=== PATIENT | male | born 1940 | race Caucasian/White ===

== ENCOUNTER 2016-07-27 13:42 | Emergency (ER) | payer OTHER ==
[~2016-07-27] VITALS: Ht 175.3 cm; Wt 63.2 kg
[~2016-07-27 13:42] MED LIST: MGNO400 PO; OXYC-57 PO; POTTAB2 PO; PRAV20TA PO; VTMD PO; VTMD1000 PO
[2016-07-27 13:48] VITALS: TEMP 36.7; Ht 175.3 cm; Wt 63.2 kg
[2016-07-27] MEDS ORDERED: GLC/500 PO (14:34)
[2016-07-27] MEDS ORDERED: OXYMETAZOLINE HCL 0.05% NA SPR 15 ML BTL ONE ×2 (15:00→15:15)
--- NOTE | 2016-07-27 15:14 | EMERGENCY ROOM VISIT NOTE ---
History First contact with patient: 14:49 Chief Complaint: NOSE BLEED (MINOR) Stated Complaint: NOSE BLEEDS FOR A WEEK History of Present Illness The patient is a 76 year old male who presents to the Emergency Room with complaints of intermittent epistaxis. The patient states that he has gotten nosebleeds particularly at night for the last several weeks. He states it has been intermittent over the last year. The patient was unable to get the bleeding stopped today. The patient has a history of vascular dementia. He denies any headaches, chest pain, trouble breathing, pain, lightheadedness. He does not take any blood thinners. Review of Systems A 10 system review of systems was completed with positives and pertinent negatives listed in the HPI. Past Medical/Surgical History Medical Problems: (1) Diabetes (2) Hyperlipidemia (3) Vascular dementia Social History Smoking Status: Current Every Day Smoker Alcohol Use: none Drug Use: none Marital Status: single Housing Status: lives alone Occupation Status: retired Current/Historical Medications Scheduled Amoxicillin & Pot Clavulanate (Augmentin 875-125 mg), 1 TAB PO BID Metformin Hcl (Glucophage), 500 MG PO BID Pravastatin (Pravachol ), 40 MG PO DAILY Allergies Coded Allergies: No Known Allergies (Verified , 02/21/07) Physical Exam Vital Signs Date Time Temp Pulse Resp B/P Pulse Ox O2 Delivery O2 Flow Rate FiO2 07/27/16 16:36 85 18 190/110 96 Room Air 07/27/16 16:00 84 16 193/108 96 Room Air 07/27/16 13:48 36.7 82 18 158/82 97 Room Air Physical Exam VITALS: Vitals are noted on the nurse's note and reviewed by myself. Vital signs stable. The patient is afebrile. He is not tachycardic, tachypneic or hypotensive. GENERAL: This is a 76-year-old male, in no acute distress, nondiaphoretic, well- developed well-nourished. SKIN: The skin was without rashes, erythema, edema, or bruising. There is no tenting of the skin. Capillary reflex less than 2 seconds. HEAD: Normocephalic atraumatic. EARS: External auditory canals clear, tympanic membranes pearly rothman without erythema or effusion bilaterally. EYES: Pupils equal round and reactive to light and accommodation. Conjunctivae without injection, sclerae without icterus. Extraocular movements intact. NOSE: There is active bleeding from the left naris. No sinus tenderness. MOUTH: Mucous membranes moist. Tonsils are not enlarged. There is moderate active bleeding noted in the posterior pharynx. Uvula midline. Airway patent. Tongue does not deviate. NECK: Supple without nuchal rigidity. No lymphadenopathy. No thyromegaly. Cervical spine is nontender. No JVD. HEART: Regular rate and rhythm without murmurs gallops or rubs. LUNGS: Clear to auscultation bilaterally without wheezes, rales or rhonchi. No retractions or accessory muscle use. MUSCULOSKELETAL: No muscle atrophy, erythema, or edema noted. Full range of motion in all extremities. No tenderness to palpation. Normal gait. Strength 5/5 throughout. NEURO: Patient was alert and oriented to person place and time. No focal neurological deficits. Medical Decision & Procedures Laboratory Results 07/27/16 15:30 Red Blood Count 4.52, Mean Corpuscular Volume 92.9, Mean Corpuscular Hemoglobin 32.3, Mean Corpuscular Hemoglobin Concent 34.8, Mean Platelet Volume 10.4, Neutrophils (%) (Auto) 62.9, Lymphocytes (%) (Auto) 26.6, Monocytes (%) (Auto) 8.0, Eosinophils (%) (Auto) 2.1, Basophils (%) (Auto) 0.2, Neutrophils # (Auto) 5.29, Lymphocytes # (Auto) 2.24, Monocytes # (Auto) 0.67, Eosinophils # (Auto) 0.18, Basophils # (Auto) 0.02 07/27/16 15:30 Test 07/27/16 15:30 White Blood Count 8.42 K/uL (4.8-10.8) Red Blood Count 4.52 M/uL (4.7-6.1) Hemoglobin 14.6 g/dL (14.0-18.0) Hematocrit 42.0 % (42-52) Mean Corpuscular Volume 92.9 fL (80-100) Mean Corpuscular Hemoglobin 32.3 pg (25-34) Mean Corpuscular Hemoglobin Concent 34.8 g/dl (32-36) Platelet Count 275 K/uL (130-400) Mean Platelet Volume 10.4 fL (7.4-10.4) Neutrophils (%) (Auto) 62.9 % Lymphocytes (%) (Auto) 26.6 % Monocytes (%) (Auto) 8.0 % Eosinophils (%) (Auto) 2.1 % Basophils (%) (Auto) 0.2 % Neutrophils # (Auto) 5.29 K/uL (1.4-6.5) Lymphocytes # (Auto) 2.24 K/uL (1.2-3.4) Monocytes # (Auto) 0.67 K/uL (0.11-0.59) Eosinophils # (Auto) 0.18 K/uL (0-0.5) Basophils # (Auto) 0.02 K/uL (0-0.2) RDW Standard Deviation 43.4 fL (36.4-46.3) RDW Coefficient of Variation 12.7 % (11.5-14.5) Immature Granulocyte % (Auto) 0.2 % Immature Granulocyte # (Auto) 0.02 K/uL (0.00-0.02) Anion Gap 9.0 mmol/L (3-11) Est Creatinine Clear Calc Drug Dose 51.9 ml/min Estimated GFR () 75.7 Estimated GFR (Non- 65.3 BUN/Creatinine Ratio 15.7 (10-20) Calcium Level 9.4 mg/dl (8.5-10.1) Total Bilirubin 0.4 mg/dl (0.2-1) Aspartate Amino Transf (AST/SGOT) 8 U/L (15-37) Alanine Aminotransferase (ALT/SGPT) 17 U/L (12-78) Alkaline Phosphatase 105 U/L (45-117) Total Protein 7.8 gm/dl (6.4-8.2) Albumin 4.3 gm/dl (3.4-5.0) Globulin 3.5 gm/dl (2.5-4.0) Albumin/Globulin Ratio 1.2 (0.9-2) Procedure Initially, Afrin was instilled in the left naris and a nasal clamp applied. The patient continued to have active bleeding. At this time, a 5.5 cm rapid Rhino was placed in the left naris. I proximally 8 mL of air was instilled to inflate the balloon. I offered to remove some of the air but the patient stated that he was tolerating the pressure. ED Course The patient was seen and examined. Previous visits were reviewed. The patient does not have a fever or leukocytosis. He is not anemic. The patient presented with epistaxis. After rapid Rhino was placed, the epistaxis resolved. The patient will be placed on Augmentin for the next 3 days. He should return in 48 hours for recheck and packing removal. He should return sooner with recurrence of bleeding or generalized worsening symptoms. He should follow up with otolaryngology for further evaluation and management given the recurrent epistaxis. The patient was also seen and examined by who agrees with the assessment and treatment plan. Medical Decision Differential diagnosis includes epistaxis, anemia, coagulopathy, among others Impression Primary Impression: Epistaxis Departure Information Dispostion Home / Self-Care Condition GOOD Prescriptions Amoxicillin & Pot Clavulanate (Augmentin 875-125 mg) 1 Tab Tab 1 TAB PO BID for 3 Days, #6 TAB Prov: Kate Barrow PA-C 07/27/16 Referrals Gordon Dao M.D.(DENY) (PCP) Andrea Pitts M.D. Patient Instructions ED Nasal Packing Anterior Removable, ED Packing Nasal Anterior [place], My [facility] Additional Instructions Return in 48 hours to have the packing removed Return sooner with recurrence of bleeding or worsening symptoms Augmentin twice daily for 3 days Contact otolaryngology to schedule a follow-up appointment for further evaluation and management
[2016-07-27 15:41] LABS: BASO % 0.2 %; BASO ABS # 0.02 K/uL (0-0.2); COMPLETE YES; EOS % 2.1 %; IG% 0.2 %; LYMPH % 26.6 %; LYMPH ABS # 2.24 K/uL (1.2-3.4); MEAN CELL VOLUME 92.9 fL (80-100); MEAN CORPUSCULAR HEMOGLOBIN 32.3 pg (25-34); MEAN CORPUSCULAR HGB CONC 34.8 g/dl (32-36); MEAN PLATELET VOLUME 10.4 fL (7.4-10.4); NEUT % 62.9 %; PLATELET COUNT 275 K/uL (130-400); RED BLOOD COUNT 4.52 M/uL (4.7-6.1); WHITE BLOOD COUNT 8.42 K/uL (4.8-10.8)
[2016-07-27 16:01] LABS: BUN/CREATININE RATIO 15.7 (10-20); CALCIUM 9.4 mg/dl (8.5-10.1); CREATININE 1.1 mg/dl (0.60-1.40); POTASSIUM 4.6 mmol/L (3.5-5.1)
[2016-07-27 16:03] LABS: ALB/GLOB RATIO 1.2 (0.9-2)
[2016-07-27] MEDS ORDERED: AMOX875T PO (16:19)
[2016-07-27 16:36] VITALS: BP 190/110; PULSE 85; O2SAT 96
--- NOTE | 2016-07-28 20:03 | EMERGENCY ROOM VISIT NOTE ---
ED Visit Note First contact with patient: 14:49 I have personally evaluated this patient examined her and reviewed the pertinent labs and data. I have discussed the case with Reyna Barrow, the physician radiology assistant and agree with the plan. Please refer to the PA note. This patient has a left-sided nosebleed. They nose was packed with a rapid Rhino by Reyna. When I reassess the patient, he was resting comfortably he had no bleeding. There was a nasal pack in the left nares in the posterior oropharynx was clear. He is not on any blood thinners. We will discharge him home and he will return for packing removal in 2 days. The patient and daughter were happy with the plan and he was discharged
== END 2016-07-27 16:44 | disposition home or self-care (01) ==
LOC: C.EDB 13:44
DX: R04.0 Epistaxis (principal); F01.50 Vascular dementia, unspecified severity, without behavioral disturbance, psychotic disturbance, mood disturbance, and anxiety; E11.9 Type 2 diabetes mellitus without complications; E78.5 Hyperlipidemia, unspecified; F17.200 Nicotine dependence, unspecified, uncomplicated; Z79.899 Other long term (current) drug therapy; Z79.84 Long term (current) use of oral hypoglycemic drugs

== ENCOUNTER 2016-07-28 01:30 | Emergency (ER) | payer OTHER ==
[~2016-07-28] VITALS: Ht 175.3 cm; Wt 63.0 kg
[~2016-07-28 01:30] MED LIST changes: +AMOX875T PO; +GLC/500 PO; -MGNO400 PO; -OXYC-57 PO; -POTTAB2 PO; -VTMD PO; -VTMD1000 PO
[2016-07-28 01:33] VITALS: TEMP 36.5; Ht 175.3 cm; Wt 63.0 kg
--- NOTE | 2016-07-28 02:05 | EMERGENCY ROOM VISIT NOTE ---
History Report prepared by Bella: Courtney Hunt Under the Supervision of: Dr. Nabil Doherty M.D. First contact with patient: 01:40 Chief Complaint: NOSE BLEED (MINOR) Stated Complaint: NOSE BLEED History of Present Illness The patient is a 76 year old male who presents to the Emergency Room to have his nasal packing checked. The patient was seen in the ED one day ago for a nose bleed. A nasal packing was placed and the patient was prescribed Augmentin. Around three hours ago, the patient sneezed, causing the nasal packing to loosen in his nose. There was no active bleeding. The patient wanted to make sure that he did not dislodge the nasal packing. He is not on blood thinners. Source of History: patient Onset: 3 hours ago Position: nose Quality: other (nasal packing check) Timing: other (episode) Note: He denies active nose bleeding. Review of Systems See HPI for pertinent positives & negatives. A total of 6 systems reviewed and were otherwise negative. Past Medical & Surgical Medical Problems: (1) Diabetes (2) Hyperlipidemia (3) Vascular dementia Family History Diabetes mellitus Hypertension Social History Smoking Status: Current Every Day Smoker Alcohol Use: none Drug Use: none Marital Status: single Housing Status: lives alone Occupation Status: retired Current/Historical Medications Scheduled Amoxicillin & Pot Clavulanate (Augmentin 875-125 mg), 1 TAB PO BID Metformin Hcl (Glucophage), 500 MG PO BID Pravastatin (Pravachol ), 40 MG PO DAILY Allergies Coded Allergies: No Known Allergies (Verified , 02/21/07) Physical Exam Vital Signs Date Time Temp Pulse Resp B/P Pulse Ox O2 Delivery O2 Flow Rate FiO2 07/28/16 02:14 87 18 156/92 96 07/28/16 01:33 36.5 98 16 161/91 97 Room Air Physical Exam GENERAL: Patient is well appearing and in no acute distress. HEENT: No acute trauma, normocephalic atraumatic, mucous membranes moist, no nasal congestion, no scleral icterus. His left nares rapid rhino , which is sticking out senior living, no active bleeding. NECK: No stridor, no adenopathy, no meningismus, trachea is midline. EXTREMITIES: Normal motion all extremities, no cyanosis, no edema. NEUROLOGIC: Alert and oriented, no acute motor or sensory deficits, no focal weakness, cranial nerves grossly intact. SKIN: No rash, no jaundice, no diaphoresis. Medical Decision & Procedures Procedure Anterior Nasal Packing Indication: epistaxis Verbal consent obtained. Risks and benefits were explained with the usual customary discussion. A time out was taken. Clots were removed with suction. The left naris was prepped. A 4.5-cm rapid rhino was placed in a standard fashion. The patient tolerated this well. Hemostasis was achieved. No complications. ED Course 0145: The patient was evaluated in room A3. The patient as first evaluated by the medical student. A complete history and physical exam was performed. 0204: Reevaluated the patient. Discussed results and discharge instructions: He verbalized understanding and agreement. The patient is ready for discharge. Medical Decision Differential: Anterior/Posterior Epistaxis, Coagulopathy, Trauma, Fracture, Septal Hematoma, amongst other pathologies entertained. 76 yr old male arrives for replacement of left rapid rhino after it expelled half way out. Removed and excoriated nasal septum noted, but no active bleeding. With only having been in 12 hours will replace and continue current plan for another 36 hours. Patient comfortable, balloon soft and no further bleeding. Discussed care and monitoring. Impression Primary Impression: Left-sided nosebleed Scribe Attestation The scribe's documentation has been prepared under my direction and personally reviewed by me in its entirety. I confirm that the note above accurately reflects all work, treatment, procedures, and medical decision making performed by me. Departure Information Dispostion Home / Self-Care Referrals Gordon Dao M.D.(HUGH) (PCP) Patient Instructions ED [place], My [facility] Additional Instructions Return in 1-2 days for packing removal. If packing falls out you do not need to return unless bleeding is uncontrolled.
[2016-07-28 02:14] VITALS: BP 156/92; PULSE 87; O2SAT 96
== END 2016-07-28 02:16 | disposition home or self-care (01) ==
LOC: C.EDB 01:31 → C.EDA 02:16
DX: R04.0 Epistaxis (principal); E11.9 Type 2 diabetes mellitus without complications; E78.5 Hyperlipidemia, unspecified; F01.50 Vascular dementia, unspecified severity, without behavioral disturbance, psychotic disturbance, mood disturbance, and anxiety; Z79.84 Long term (current) use of oral hypoglycemic drugs; Z79.899 Other long term (current) drug therapy; Z82.49 Family history of ischemic heart disease and other diseases of the circulatory system; Z83.3 Family history of diabetes mellitus; F17.200 Nicotine dependence, unspecified, uncomplicated

== ENCOUNTER 2020-11-03 18:52 | Inpatient (IN) ==
[2020-11-03] MEDS ORDERED: Heparin IV Adult Wt-Based Standard WITH Bolus Protocol IV STA (20:05)
--- NOTE | 2020-11-03 20:05 | Emergency Department Note ---
Impression & Plan Left ventricular apical thrombus, Anemia, High serum chloride ED Provider Note NAME: MAIKEL COVINGTON AGE: 80 SEX: M : 1940 ARRIVES VIA: Walk-In INFORMANT: Patient ED PROVIDER(S): Tavares Simon DO CHIEF COMPLAINT: Abnormal echo HPI: Patient is a 80-year-old male who presents to the ER as he was referred in following having an echo. He was not feeling well for about 2 weeks and followed up with PCP and was found to have a new murmur. Following this he had an echo scheduled which was performed today. The echo showed an EF of 45% with a 0.9 cm apical thrombus as well as the anterior septum and inferior septum are hypokinetic at the mid level. Patient denies any chest pain or change in vision. No shortness of breath nausea vomiting or diarrhea. No dysuria urgency or frequency. He denies any blood in his urine, stool, coughing up blood, vo miting blood recent trauma or surgeries. No previous brain bleeds. ROS: See above HPI for pertinent positives & negatives. A total of 10 systems reviewed and were otherwise negative. PAST MEDICAL HISTORY:See Below PAST SURGICAL HISTORY:See Below FAMILY HISTORY:See Below SOCIAL HISTORY:See Below HOME MEDICATIONS:See Below ALLERGIES:See Below VITALS:See Below PHYSICAL EXAMINATION: GENERAL: Sitting up in bed, alert, chronically ill-appearing, disheveled EYE EXAM: normal conjunctiva. OROPHARYNX: no exudate, no erythema, lips, buccal mucosa, and tongue normal and mucous membranes are moist NECK: supple, no nuchal rigidity, no adenopathy, non-tender LUNGS: Clear to auscultation. Normal chest wall mechanics HEART: no murmurs, S1 normal and S2 normal ABDOMEN: abdomen soft, non-tender, normo-active bowel sounds, no masses, no rebound or guarding. BACK: Back is symmetrical on inspection and there is no deformity, no midline tenderness, no CVA tenderness. SKIN: no rashes and no bruising UPPER EXTREMITIES: upper extremities are grossly normal. LOWER EXTREMITIES: No pitting edema. NEURO EXAM: Normal sensorium, cranial nerves II-XII grossly intact, normal speech, no gross weakness of arms, no gross weakness of legs. MEDICAL DECISION MAKING: Patient is a 80-year-old male who was found to have a left ventricle apical thrombus who was referred in for further evaluation. IV was established blood work obtained. Labs show no significant leukocytosis or anemia. INR unremarkable. BMP with slightly elevated chloride. LFTs bilirubin and troponin was negative. Lipase unremarkable. Covid was negative. Ultrasound reviewed on paper from [facility]. Patient has no bleeding risk factors. Placed on heparin drip and bolus. Discussed with hospitalist admitted for further work-up. Triage Nursing notes reviewed. Limited review of prior medical records performed Vital Signs: reviewed and remarkable for HTN Differential diagnosis: Differential diagnoses includes but is not limited to acute coronary syndrome, myocardial infarction, pericarditis, pulmonary embolus, aortic dissection, pne umonia, pneumothorax, musculoskeletal, shingles, esophageal. ER treatment provided: See below Diagnostics interpreted by me: ECG: Sinus rhythm rate 71 Normal axis No PVCs Poor baseline T wave flattening in the septal leads QTC 375 Cardiac Monitoring: An order was placed for continuous cardiac monitoring. The monitor shows a rate of 71 with sinus rhythm. Laboratory studies: As stated above and show below. Imaging studies: Portable AP upright 1 view the chest shows no focal infiltrate or pneumothorax Consultation(s): Discussed with hospitalist for further evaluation Procedures: none Critical Care: I have personally spent 35 minutes of critical care time in the direct management of this patient. This includes bedside care, interpretation of diagnostic studies, and testing, discussion with consultants, patient, and family members, and other required patient management activities. This 35 minutes is in excess of all separately billable procedures. Past Med/Surg History Social History Smoking Status: Former smoker Tobacco Type: Cigarettes Feels Safe at Home: Yes Allergies Allergies Allergy/AdvReac Type Severity Reaction Status Date / Time aspirin AdvReac Unknown Verified 11/03/20 20:39 mirtazapine [From Remeron] AdvReac Unknown Verified 11/03/20 20:39 Home Meds Home Medications Medication Instructions Recorded Confirmed benzonatate 100 mg PO TID PRN 11/03/20 11/03/20 ipratropium-albuterol [Combivent 1 puff INHALATION QID 11/03/20 11/03/20 Respimat] montelukast 10 mg PO DAILY 11/03/20 11/03/20 olanzapine 5 mg PO DAILY 11/03/20 11/03/20 Results & Data (ED) Vital Signs Vital Signs - 24 hr 11/03/20 18:56 11/03/20 20:12 11/03/20 20:41 Temperature 36.8 C Temperature Source Oral Pulse Rate 75 Pulse Rate [Right Finger] 73 Pulse Rate from SpO2 Sensor Pulse Rhythm [Right Finger] Regular Respiratory Rate 18 16 Blood Pressure 199/85 H Blood Pressure [Right Arm] 188/99 H Blood Pressure Mean 123 Blood Pressure Mean [Right Arm] 128 Pulse Oximetry 99 98 100 Oxygen Delivery Method Room Air Room Air Room Air Sepsis Recent Fever Within 48 Hours No Sepsis New/Unexplained Change in Mental Status No Sepsis Action Taken by Nursing No Action Required 11/03/20 22:24 11/03/20 22:48 11/03/20 23:00 Temperature Temperature Source Pulse Rate 72 67 Pulse Rate [Right Finger] 78 Pulse Rate from SpO2 Sensor 67 68 Pulse Rhythm [Right Finger] Respiratory Rate 16 15 24 Blood Pressure 200/116 H 179/76 H Blood Pressure [Right Arm] 172/95 H Blood Pressure Mean 144 110 Blood Pressure Mean [Right Arm] 120 Pulse Oximetry 98 99 99 Oxygen Delivery Method Room Air Room Air Sepsis Recent Fever Within 48 Hours Sepsis New/Unexplained Change in Mental Status Sepsis Action Taken by Nursing Laboratory Data Result diagrams: 11/03/20 20:09 11/03/20 20:09 Lab Results 11/03/20 11/03/20 11/03/20 Range/Units 20:09 20:09 20:09 WBC 6.84 (4.8-10.8) K/uL RBC 4.40 L (4.7-6.1) M/uL Hgb 13.5 L (14.0-18.0) g/dL Hct 39.5 L (42-52) % MCV 89.8 (80-100) fL MCH 30.7 (25-34) pg MCHC 34.2 (32-36) g/dL RDW Std Deviation 42.3 (36.4-46.3) fL RDW Coeff of Filippo 12.9 (11.5-14.5) % Plt Count 263 (130-400) K/uL MPV 10.1 (7.4-10.4) fL Immature Gran % (Auto) 0.1 % Neut % (Auto) 54.7 % Lymph % (Auto) 31.1 % Hampton % (Auto) 10.7 % Eos % (Auto) 3.1 % Baso % (Auto) 0.3 % Neut # (Auto) 3.74 (1.4-6.5) K/uL Lymph # (Auto) 2.13 (1.2-3.4) K/uL [place] # (Auto) 0.73 H (0.11-0.59) K/uL Eos # (Auto) 0.21 (0-0.5) K/uL Baso # (Auto) 0.02 (0-0.2) K/uL Immature Gran # (Auto) 0.01 (0.00-0.02) K/uL PT 10.2 (9.0-12.0) Seconds INR 1.0 (0.9-1.1) APTT 26.2 (21.0-31.0) Seconds PTT Ratio 1.0 Sodium 138 (136-145) mmol/L Potassium 4.0 (3.5-5.1) mmol/L Chloride 109 H (98-107) mmol/L Carbon Dioxide 23 (21-32) mmol/L Anion Gap 6.0 (3-11) BUN 21 H (7-18) mg/dl Creatinine 1.24 (0.6-1.4) mg/dl Est Cr Clr Drug Dosing 41.5 ml/min Est GFR ( Amer) 63.7 ml/min Est GFR (Non-Af Amer) 54.9 ml/min BUN/Creatinine Ratio 17.0 (10-20) Glucose 102 H (70-99) mg/dl Calcium 9.1 (8.5-10.1) mg/dl Total Bilirubin 0.3 (0.2-1) mg/dl AST 10 L (15-37) U/L ALT 17 (12-78) U/L Alkaline Phosphatase 100 (45-117) U/L Troponin I < 0.015 (0-0.045) ng/ml Total Protein 7.3 (6.4-8.2) gm/dl Albumin 3.8 (3.4-5.0) gm/dl Globulin 3.5 (2.5-4.0) gm/dl Albumin/Globulin Ratio 1.1 (0.9-2) Lipase 86 (73-393) U/L COVID-19 Eval Order SARS-CoV-2 (PCR) (Negative) 11/03/20 11/03/20 Range/Units 20:21 20:21 WBC (4.8-10.8) K/uL RBC (4.7-6.1) M/uL Hgb (14.0-18.0) g/dL Hct (42-52) % MCV (80-100) fL MCH (25-34) pg MCHC (32-36) g/dL RDW Std Deviation (36.4-46.3) fL RDW Coeff of Filippo (11.5-14.5) % Plt Count (130-400) K/uL MPV (7.4-10.4) fL Immature Gran % (Auto) % Neut % (Auto) % Lymph % (Auto) % [place] % (Auto) % Eos % (Auto) % Baso % (Auto) % Neut # (Auto) (1.4-6.5) K/uL Lymph # (Auto) (1.2-3.4) K/uL [place] # (Auto) (0.11-0.59) K/uL Eos # (Auto) (0-0.5) K/uL Baso # (Auto) (0-0.2) K/uL Immature Gran # (Auto) (0.00-0.02) K/uL PT (9.0-12.0) Seconds INR (0.9-1.1) APTT (21.0-31.0) Seconds PTT Ratio Sodium (136-145) mmol/L Potassium (3.5-5.1) mmol/L Chloride (98-107) mmol/L Carbon Dioxide (21-32) mmol/L Anion Gap (3-11) BUN (7-18) mg/dl Creatinine (0.6-1.4) mg/dl Est Cr Clr Drug Dosing ml/min Est GFR ( Amer) ml/min Est GFR (Non-Af Amer) ml/min BUN/Creatinine Ratio (10-20) Glucose (70-99) mg/dl Calcium (8.5-10.1) mg/dl Total Bilirubin (0.2-1) mg/dl AST (15-37) U/L ALT (12-78) U/L Alkaline Phosphatase (45-117) U/L Troponin I (0-0.045) ng/ml Total Protein (6.4-8.2) gm/dl Albumin (3.4-5.0) gm/dl Globulin (2.5-4.0) gm/dl Albumin/Globulin Ratio (0.9-2) Lipase (73-393) U/L COVID-19 Eval Order Covid19 at [facility] SARS-CoV-2 (PCR) NEGATIVE (Negative) Administered Medications Heparin Sodium/Dextrose (Heparin Sodium/Dextrose) 25,000 units in 500 mls @ 22 mls/hr IV .[id number] ROLY; Protocol Stop: 12/03/20 20:20 Last Admin: 11/03/20 21:06 Dose: 1,100 units/hr, 22 mls/hr Documented by: [id number] Cosigned by: [id number] Metoprolol Tartrate (Metoprolol Tartrate 25 Mg Tab) 25 mg PO BID [facility] Stop: 12/03/20 23:14 Last Admin: 11/03/20 23:09 Dose: 25 mg Documented by: [id number] Discontinued Medications Heparin Sodium (Porcine) (Heparin Sod (Porcine) 1000 Unit/Ml) 1 units IV NOW ONE Stop: 11/03/20 20:22 Last Admin: 11/03/20 21:07 Dose: 5,000 units Documented by: [id number] Cosigned by: [id number] Heparin Sodium/Dextrose (Heparin Iv Adult Wt-Based Standard With Bolus Protocol) 1 ea IV NOW STA; Protocol Stop: 11/03/20 20:06 Last Admin: 11/03/20 21:07 Dose: Not Given Documented by: [id number] Labetalol HCl (Labetalol Hcl Iv 5 Mg/Ml 20ml) 10 mg IV NOW STA Stop: 11/03/20 22:57 Last Admin: 11/03/20 23:10 Dose: Not Given Documented by: [id number] Imaging Data Radiologist's Impression: Chest X-Ray 11/03/20 20:03 XR chest 1V portable CLINICAL HISTORY: Atypical chest pain COMPARISON STUDY: 04/08/2014 FINDINGS: The heart is mildly enlarged. The chest has an emphysematous configuration. There is mild interstitial thickening. There is no lobar consolidation. There are old right-sided rib fractures.[No pleural effusions are visualized IMPRESSION: 1. Mild cardiomegaly 2. Suspected pulmonary emphysema 3. Minor nonspecific interstitial thickening 4. No evidence of focal pulmonary consolidation ACT 112: Negative or not required by law. Electronically signed by: Atul Charles M.D. 11/03/2020 8:58 PM Discharge Plan Visit Data Chief Complaint: Illness Stated Complaint: SENT BY DR/ BLOOD CLOT IN TOP OF HEART ED Provider: Tavares Simon Discharge Problem: Left ventricular apical thrombus, Anemia, High serum chloride Forms Stand Alone Forms: [facility] Prescriptions Prescriptions: No Action olanzapine 5 mg tablet 5 mg PO DAILY RF: 0 benzonatate 100 mg capsule 100 mg PO TID PRN (Reason: Cough) RF: 0 montelukast 10 mg tablet 10 mg PO DAILY RF: 0 Combivent Respimat 20-100 mcg/actuation mist 1 puff INHALATION QID RF: 0 Discharge Problem: Anemia Qualifiers: Anemia type: unspecified type Qualified Code(s): D64.9 - Anemia, unspecified
[2020-11-03 20:21] LABS: Basophils # (auto) 0.02 K/uL (0-0.2); Basophils % (auto) 0.3 %; Eosinophils # (auto) 0.21 K/uL (0-0.5); Eosinophils % (auto) 3.1 %; Hematocrit (blood only) 39.5 % (42-52); Hemoglobin 13.5 g/dL (14.0-18.0); Immature Granulocytes # (auto) 0.01 K/uL (0.00-0.02); Immature Granulocytes % (auto) 0.1 %; Lymphocytes # (auto) 2.13 K/uL (1.2-3.4); Lymphocytes % (auto) 31.1 %; Mean Corpuscular Hemoglobin 30.7 pg (25-34); Mean Corpuscular Hgb Conc 34.2 g/dL (32-36); Mean Corpuscular Volume 89.8 fL (80-100); Mean Platelet Volume 10.1 fL (7.4-10.4); Monocytes # (auto) 0.73 K/uL (0.11-0.59); Monocytes % (auto) 10.7 %; Neutrophils # (auto) 3.74 K/uL (1.4-6.5); Neutrophils % (auto) 54.7 %; Platelet Count 263 K/uL (130-400); RDW Coefficient of Variation 12.9 % (11.5-14.5); RDW Standard Deviation 42.3 fL (36.4-46.3); White Blood Count 6.84 K/uL (4.8-10.8)
[2020-11-03] MEDS ORDERED: HEPARIN SOD (PORCINE) 1000 UNIT/ML IV ONE (20:21)
[2020-11-03 20:30] LABS: Partial Thromboplastin Time 26.2 Seconds (21.0-31.0); Prothrombin Time 10.2 Seconds (9.0-12.0)
[2020-11-03 20:44] LABS: Alanine Aminotransferase 17 U/L (12-78); Albumin Level 3.8 gm/dl (3.4-5.0); Aspartate Aminotransferase 10 U/L (15-37); Blood Urea Nitrogen 21 mg/dl (7-18); Calcium 9.1 mg/dl (8.5-10.1); Carbon Dioxide 23 mmol/L (21-32); Chloride 109 mmol/L (98-107); Creatinine Clr Calc Pharmacy 41.5 ml/min; Est GFR (African American) 63.7 ml/min; Est GFR (Non-African American) 54.9 ml/min; Glucose 102 mg/dl (70-99); Lipase 86 U/L (73-393); Sodium 138 mmol/L (136-145)
[2020-11-03 20:49] LABS: Albumin Globulin Ratio 1.1 (0.9-2); Alkaline Phosphatase 100 U/L (45-117); Bilirubin,Total 0.3 mg/dl (0.2-1); Globulin 3.5 gm/dl (2.5-4.0); Total Protein 7.3 gm/dl (6.4-8.2); Troponin I < 0.015 ng/ml (0-0.045)
--- NOTE | 2020-11-03 20:59 | XRay Report ---
XR chest 1V portable CLINICAL HISTORY: Atypical chest pain COMPARISON STUDY: 04/08/2014 FINDINGS: The heart is mildly enlarged. The chest has an emphysematous configuration. There is mild i nterstitial thickening. There is no lobar consolidation. There are old right-sided rib fractures.[No pleural effusions are visualized IMPRESSION: 1. Mild cardiomegaly 2. Suspected pulmonary emphysema 3. Minor nonspecific interstitial thickening 4. No evidence of focal pulmonary consolidation ACT 112: Negative or not required by law. Electronically signed by: Atul Charles M.D. 11/03/2020 8:58 PM
[2020-11-03] MEDS: HEPARIN SODIUM/DEXTROSE 25,000 UNITS/500 ML BAG IV SCH (21:06)
[2020-11-03] MEDS ORDERED: LABETALOL HCL IV 5 MG/ML 20ML IV STA (22:56)
[2020-11-03] MEDS: METOPROLOL TARTRATE 25 MG TAB PO SCH (23:09)
[2020-11-04] MEDS ORDERED: POLYETHYLENE (MIRALAX) 17 GM PACK PO PRN (00:47)
[2020-11-04] MEDS ORDERED: BENZONATATE 100 MG CAPSULE PO PRN (00:47)
[2020-11-04] MEDS ORDERED: NITROGLYCERIN SL 0.4 MG/TAB TAB SL PRN (00:47)
[2020-11-04] MEDS ORDERED: ACETAMINOPHEN 325 MG TAB PO PRN (00:47)
--- NOTE | 2020-11-04 01:37 | History and Physical Report ---
DATE OF ADMISSION: 11/03/2020 CHIEF COMPLAINT: Ongoing dizziness and outpatient echo showed mural thrombus. HISTORY OF PRESENT ILLNESS: This is a 80-year-old male with past medical history significant for COPD, history of pulmonary nodule, history of dementia, history of protein-calorie malnutrition, chronic kidney disease stage IIIA, macular degeneration, progressive vascular leukoencephalopathy, history of visual spatial deficit, aspirin contraindicated because of epistaxis. As per daughter, he had two cauterizations of the nose in the ER in the past. Quit smoking 2 years ago. Lives with his daughter. Ambulates without any support. Appetite is okay. Comes here because outpatient echo showed mural thrombus and EF of 45%. The patient was having dizziness on and off for last 2 weeks. He went to see the family doctor because of question of murmur, Echo was done, the results showing EF of 45% and anterior septum and inferior septum are hypokinetic in the mid level. There is a moderate sized 0.9 cm apical thrombus and the patient was advised to come to the hospital. Denies any chest pain or shortness of breath. Has some nausea, no cough, no fever, no chills, no headache. He is blind in the left eye. No earache, no runny nose, no sore throat, no dysphagia, no abdominal pain. Normal bowel and bladder movements. Denies any blood in the stools or black stools. Denies any hematuria, no burning micturition, no swelling in the legs. Currently resting comfortably and hemodynamically stable. The patient's daughter is in the room. ALLERGIES: ASPIRIN, REMERON. PAST MEDICAL HISTORY: As mentioned above. PAST SURGICAL HISTORY: Open right incarcerated femoral hernia repair with mesh, injection of the eye drug, reduction of bowel obstruction, appendectomy, carotid endarterectomy with patch. MEDICATIONS: Currently on benzoate 100 mg p.o. t.i.d. p.r.n., Combivent 1 puff inhalation b.i.d., montelukast 10 mg p.o. daily, olanzapine 5 mg p.o. daily. FAMILY HISTORY: Significant for brother had throat cancer and hypertension; mother had throat cancer; mother had diabetes, hypertension. SOCIAL HISTORY: Lives with his daughter. Former smoker, quit in 2019. Smoked average 1 pack a day for 60 years. Stopped alcohol in the 1990s. No drug use. REVIEW OF SYSTEMS: As per HPI. Rest of review of systems negative. PHYSICAL EXAMINATION: GENERAL: The patient is of moderate build, not in acute distress. VITAL SIGNS: Temperature 36.8, pulse 67, respiratory rate 24, blood pressure 179/76, oxygen 99% on room air. HEENT: No pallor, no icterus. Oral mucosa moist. NECK: No JVD, no neck masses. CARDIOVASCULAR: S1, S2 heard, regular rate and rhythm, no murmur, no gallop. RESPIRATORY SYSTEM: Normal AP diameter. No accessory muscle use. No wheezing, no crackles. ABDOMEN: Soft, bowel sounds present, nontender. No distention. CENTRAL NERVOUS SYSTEM: Cranial nerves II-XII grossly intact, nonfocal. EXTREMITIES: No edema, no erythema. LABORATORY DATA: WBC 6.8, hemoglobin 13.5, hematocrit 39.5, platelets 263. PT 10.2, INR 1, APTT 26.2. Sodium 138, potassium 4, chloride 109, bicarbonate 23, BUN 21, creatinine 1.2, serum glucose 162, calcium 9.1, total bilirubin 0.3, AST 10, ALT 17, alkaline phosphatase 100. Troponin I less than 0.015. Lipase 86. SARS-CoV-2 PCR negative. IMAGING DATA: Chest x-ray, mild cardiomegaly with suspected pulmonary emphysema, no evidence of focal pulmonary consolidation. Minor nonspecific interstitial thickening. EKG: Normal sinus rhythm at the rate of 71, no acute ST changes seen. ASSESSMENT AND PLAN: This is a 80-year-old male who presents with apical mural thrombus. 1. Apical mural thrombus: Started on IV heparin. Monitor in the tele floor. Further management as per cardiology. 2. Congestive heart failure, systolic: EF fraction of 45%, new. Ischemic cardiomyopathy?The patient is asymptomatic. Follow lipid profile.Workup and optimization of medications as per cardiology. 3. Hypertension: Blood pressure is elevated. Starting on Lopressor 25 b.i.d. 4. Dementia: Monitor for delirium. On olanzapine. 5. Chronic kidney disease stage III: Will follow the labs. 6. History of chronic obstructive pulmonary disease: Continue home Combivent. 7. Deep vein thrombosis prophylaxis: On IV heparin. DISPOSITION: Closely monitor in tele floor. Level 1 full code. Expect to discharge home and follow with family doctor. PT and OT prior to discharge. Social service to help with discharge planning. HOUSTOND
[2020-11-04 03:54] LABS: Partial Thromboplastin Ratio 3.1
[2020-11-04] MEDS: HEPARIN SODIUM/DEXTROSE 25,000 UNITS/500 ML BAG IV SCH ×2 (05:41→20:14)
[2020-11-04 05:47] LABS: Basophils # (auto) 0.02 K/uL (0-0.2); Basophils % (auto) 0.2 %; Eosinophils # (auto) 0.13 K/uL (0-0.5); Eosinophils % (auto) 1.5 %; Hematocrit (blood only) 39.4 % (42-52); Hemoglobin 13.4 g/dL (14.0-18.0); Immature Granulocytes # (auto) 0.02 K/uL (0.00-0.02); Immature Granulocytes % (auto) 0.2 %; Lymphocytes # (auto) 1.08 K/uL (1.2-3.4); Lymphocytes % (auto) 12.1 %; Mean Corpuscular Hemoglobin 30.7 pg (25-34); Mean Corpuscular Volume 90.4 fL (80-100); Mean Platelet Volume 10.2 fL (7.4-10.4); Monocytes # (auto) 0.62 K/uL (0.11-0.59); Monocytes % (auto) 6.9 %; Neutrophils # (auto) 7.06 K/uL (1.4-6.5); Neutrophils % (auto) 79.1 %; Platelet Count 293 K/uL (130-400); RDW Coefficient of Variation 12.8 % (11.5-14.5); RDW Standard Deviation 42.8 fL (36.4-46.3); Red Blood Count 4.36 M/uL (4.7-6.1); White Blood Count 8.93 K/uL (4.8-10.8)
[2020-11-04 06:16] LABS: BUN Creatinine Ratio 17.8 (10-20); Calcium 8.8 mg/dl (8.5-10.1); Creatinine Clr Calc Pharmacy 44.3 ml/min; Est GFR (Non-African American) 59.6 ml/min
[2020-11-04 06:24] LABS: Magnesium 2.7 mg/dl (1.8-2.4); Troponin I 0.017 ng/ml (0-0.045)
[2020-11-04] MEDS: OLANZapine 5 MG TABLET PO SCH (08:53)
[2020-11-04] MEDS: METOPROLOL TARTRATE 25 MG TAB PO SCH ×2 (08:53→20:14)
[2020-11-04] MEDS: MONTELUKAST SODIUM 10 MG TABLET PO SCH (08:53)
[2020-11-04] MEDS ORDERED: IPRATROPIUM BROMIDE/ALBUTEROL respimat INH INH SCH (09:00)
--- NOTE | 2020-11-04 09:32 | Cardiology Consultation ---
Date of Consultation November 04, 2020 Assessment & Plan (1) Left ventricular apical thrombus: (2) Systolic dysfunction: (3) Dizziness: (4) Systolic murmur: New onset systolic murmur, no valvular abnormalities noted on out patient echo. EF mildly reduced at 45-49% with hypokinesis of anterior septum. No chest pain or shortness of breath. Newly diagnosed LV thrombus, currently on IV heparin. Patient is a high fall risk given his underlying dementia. Lives with daughter Mary. Only complaint ongoing dizziness. VS stable. Repeat echo inpatient to assess murmur and status of thrombus. Plans to transition from IV Heparin to Coumadin Will conservatively manage new systolic dysfunction. Ischemic cause is not ruled out. Trop slightly bumped at <0.015, 0.017. Patient is currently euvolemic on exam. Already on evidence based beta nori, Can consider addition of ACEI as long as kidney function remains stable. Should patient become hypervolemic will consider addition of loop diuretic. Supervising Physician Co-Signing Physician Notes I have seen and evaluated the patient. I reviewed the medical record and discussed the case with . I agree with the plan as outlined. I would recommend a repeat echocardiogram for our evaluation. History of Present Illness Reason for Consultation: Ongoing Dizziness, Mural Thrombus on outpatient echo Requesting Physician: [facility] Hospitalist group Attending Physician: Luis Skelton MD History of Present Illness 80 year old male unknown to [facility]. Presenting to ED for complaints of ongoing dizziness. He went to see the family doctor because of question of murmur, Echo was done, the results showing EF of 45% and anterior septum and inferior septum are hypokinetic in the mid level. There is a moderate sized 0.9 cm apical thrombus and the patient was advised to come to the hospital. (previous echo 2016 LVEF 60%) Patient was started on IV heparin, Patient was Hypertensive and was started on Lopressor 25 Twice daily. Kidney function stable. Hgb 13.5. EKG showed NSR, possible septal infarct. Patient is a very poor historian given his underlying dementia (lives with daughter, Mary), however, patient appears alert and oriented today in the room. Only complaint is ongoing dizziness with activity. Denies chest pain, shortness of breath, palpitations. No orthopnea, PND, or increased lower extremity edema. No fever, chills, cough, hematochezia, melena, or hemoptysis. Nursing state he is steady on his feet with ambulation, but he is impulsive at times. ECHO 11/03/2020 at [facility] The examination is adequate to evaluate the referral indication. The left ventricular cavity size is normal. The LV wall thickness is mildly increased (concentric). The anterior septum and inferior septum are hypokinetic at the mid level. The apex is discretely akinetic with mild thinning and expansion. There is a moderate-sized 0.9 cm apical thrombus The qualitative LV ejection fraction is 45-49% (mildly reduced). The left ventricular diastolic function is mildly abnormal (grade I). This study has what is deemed to be a "significant abnormality" consistent with ACT 112. See additional documentation regarding notification of patient and ordering provider. No significant valvular abnormalities. PMH: HTN significant COPD Pulm Nodule Dementia Malnutrition CKD stage 3 H/o Visual spatial defect H/o Epitaxis, no ASA Former tobacco use Allergies Allergy/AdvReac Type Severity Reaction Status Date / Time aspirin AdvReac Unknown Verified 11/03/20 20:39 mirtazapine [From Remeron] AdvReac Unknown Verified 11/03/20 20:39 Home Medications Medication Instructions Recorded Confirmed Type benzonatate 100 mg PO TID PRN 11/03/20 11/03/20 History ipratropium-albuterol [Combivent 1 puff INHALATION QID 11/03/20 11/03/20 History Respimat] montelukast 10 mg PO DAILY 11/03/20 11/03/20 History olanzapine 5 mg PO DAILY 11/03/20 11/03/20 History Patient History Social History Smoking Status: Former smoker Tobacco Type: Cigarettes Hx Alcohol Use: No Hx Substance Use: No Preferred Language: Occitan Communication Ability: Effective 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 A+Ox3. HEENT: Normocephalic. Atraumatic. PERRL. EOMI. Conjunctiva and sclera clear. NECK: No carotid bruits. No JVD. Carotid upstrokes are brisk. Heart: RRR. S1 and S2 noted, +3/6 systolic murmur. No rubs, gallops. PMI non displaced. Lungs: Clear to auscultation. No wheezes, rhonchi, rales. Abdomen: Normal bowel sounds. Soft. Nontender. No masses or organomegaly. No abdominal bruits. Extremities: No edema. No clubbing or cyanosis. Pulses: radial=2/4, posterior tibial=2/4, dorsalis pedis = 2/4. NEURO: No focal deficits. PSYCH: Normal. Results & Data ([facility]) Vital Signs (Past 12 Hours) Vital Signs Temp Pulse Pulse Resp BP BP Pulse Ox 11/04/20 07:58 36.7 C 71 21 136/72 95 11/04/20 04:45 36.7 C 73 16 150/73 H 95 11/04/20 00:35 36.7 C 72 18 151/93 H 97 11/03/20 23:30 64 14 186/92 H 98 11/03/20 23:00 67 24 179/76 H 99 11/03/20 22:48 72 15 200/116 H 99 11/03/20 22:24 78 16 172/95 H 98
--- NOTE | 2020-11-04 09:52 | Hospitalist Progress Note ---
Date of Service November 04, 2020 Assessment & Plan (1) Left ventricular apical thrombus: (2) Systolic murmur: (3) Systolic dysfunction: (4) Dizziness: This is a 80-year-old male who presents with apical mural thrombus. 1. Apical mural thrombus: Started on IV heparin. Monitor in the tele floor. Further management as per cardiology. Plan to repeat echocardiogram Patient started on warfarin 2. Congestive heart failure, systolic: EF fraction of 45%, new. Ischemic cardiomyopathy?The patient is asymptomatic. Follow lipid profile.Workup and optimization of medications as per cardiology. 3. Hypertension: Blood pressure is elevated. Started on Lopressor 25 b.i.d. 4. Dementia: Monitor for delirium. On olanzapine. 5. Chronic kidney disease stage III: Will follow the labs. 6. History of chronic obstructive pulmonary disease: Continue home Combivent. 7. Deep vein thrombosis prophylaxis: On IV heparin. DISPOSITION: Closely monitor in tele floor.Expect to discharge home and follow with family doctor. PT and OT prior to discharge. Social service to help with discharge planning. Admission and Anticipated Discharge Date Admission Date: November 03, 2020 Subjective Patient seen in follow-up of mural thrombus, dizziness Currently patient is lying in bed in no acute distress, he is able to answer some questions appropriately however due to dementia not able to answer all my questions Denies any chest pain shortness of breath, says dizziness is occasional No abdominal pain, nausea or vomiting He is currently on IV heparin, plan for echocardiogram per cardiology Review of Systems Review of Systems: All systems reviewed & are unremarkable except as noted in HPI & below Constitutional: no fever and no chills Respiratory: no cough and no dyspnea Cardiovascular: no chest pain and no palpitations Gastrointestinal: no abdominal pain, no nausea and no vomiting Physical Exam Physical Exam: GENERAL: The patient is of moderate build, not in acute distress. HEENT: No pallor, no icterus. Oral mucosa moist. NECK: No JVD, no neck masses. CARDIOVASCULAR: S1, S2 heard, regular rate and rhythm, +murmur, no gallop. RESPIRATORY: Normal AP diameter. No accessory muscle use. No wheezing, no crackles. ABDOMEN: Soft, bowel sounds present, nontender. No distention. NEURO: Awake but only able to answer some questions appropriately due to dementia, moves extremities EXTREMITIES: No edema, no erythema. Results & Data Results & Data ([facility]) Vital Signs (Past 12 Hours) Vital Signs Temp Pulse Pulse Resp BP BP Pulse Ox 11/04/20 07:58 36.7 C 71 21 136/72 95 11/04/20 04:45 36.7 C 73 16 150/73 H 95 11/04/20 00:35 36.7 C 72 18 151/93 H 97 11/03/20 23:30 64 14 186/92 H 98 11/03/20 23:00 67 24 179/76 H 99 11/03/20 22:48 72 15 200/116 H 99 11/03/20 22:24 78 16 172/95 H 98 Laboratory Results 11/04/20 11/04/20 11/04/20 Range/Units 05:27 05:27 03:06 WBC 8.93 (4.8-10.8) K/uL RBC 4.36 L (4.7-6.1) M/uL Hgb 13.4 L (14.0-18.0) g/dL Hct 39.4 L (42-52) % MCV 90.4 (80-100) fL MCH 30.7 (25-34) pg MCHC 34.0 (32-36) g/dL RDW Std Deviation 42.8 (36.4-46.3) fL RDW Coeff of Filippo 12.8 (11.5-14.5) % Plt Count 293 (130-400) K/uL MPV 10.2 (7.4-10.4) fL Immature Gran % (Auto) 0.2 % Neut % (Auto) 79.1 % Lymph % (Auto) 12.1 % Divide % (Auto) 6.9 % Eos % (Auto) 1.5 % Baso % (Auto) 0.2 % Neut # (Auto) 7.06 H (1.4-6.5) K/uL Lymph # (Auto) 1.08 L (1.2-3.4) K/uL Divide # (Auto) 0.62 H (0.11-0.59) K/uL Eos # (Auto) 0.13 (0-0.5) K/uL Baso # (Auto) 0.02 (0-0.2) K/uL Immature Gran # (Auto) 0.02 (0.00-0.02) K/uL PT (9.0-12.0) Seconds INR (0.9-1.1) APTT 82.0 H* (21.0-31.0) Seconds PTT Ratio 3.1 Sodium 140 (136-145) mmol/L Potassium 4.0 (3.5-5.1) mmol/L Chloride 112 H (98-107) mmol/L Carbon Dioxide 22 (21-32) mmol/L Anion Gap 6.0 (3-11) BUN 21 H (7-18) mg/dl Creatinine 1.16 (0.6-1.4) mg/dl Est Cr Clr Drug Dosing 44.3 ml/min Est GFR ( Amer) 69.0 ml/min Est GFR (Non-Af Amer) 59.6 ml/min BUN/Creatinine Ratio 17.8 (10-20) Glucose 115 H (70-99) mg/dl Calcium 8.8 (8.5-10.1) mg/dl Magnesium 2.7 H (1.8-2.4) mg/dl Total Bilirubin (0.2-1) mg/dl AST (15-37) U/L ALT (12-78) U/L Alkaline Phosphatase (45-117) U/L Troponin I 0.017 (0-0.045) ng/ml Total Protein (6.4-8.2) gm/dl Albumin (3.4-5.0) gm/dl Globulin (2.5-4.0) gm/dl Albumin/Globulin Ratio (0.9-2) Triglycerides 105 (0-150) mg/dl Cholesterol 202 H (0-200) mg/dl LDL Cholesterol, Calc 137 mg/dl VLDL Cholesterol, Calc 21 mg/dl HDL Cholesterol 44 mg/dl Cholesterol/HDL Ratio 5 Lipase (73-393) U/L COVID-19 Eval Order SARS-CoV-2 (PCR) (Negative) 11/03/20 11/03/20 11/03/20 Range/Units 20:21 20:21 20:09 WBC (4.8-10.8) K/uL RBC (4.7-6.1) M/uL Hgb (14.0-18.0) g/dL Hct (42-52) % MCV (80-100) fL MCH (25-34) pg MCHC (32-36) g/dL RDW Std Deviation (36.4-46.3) fL RDW Coeff of Filippo (11.5-14.5) % Plt Count (130-400) K/uL MPV (7.4-10.4) fL Immature Gran % (Auto) % Neut % (Auto) % Lymph % (Auto) % Divide % (Auto) % Eos % (Auto) % Baso % (Auto) % Neut # (Auto) (1.4-6.5) K/uL Lymph # (Auto) (1.2-3.4) K/uL Divide # (Auto) (0.11-0.59) K/uL Eos # (Auto) (0-0.5) K/uL Baso # (Auto) (0-0.2) K/uL Immature Gran # (Auto) (0.00-0.02) K/uL PT (9.0-12.0) Seconds INR (0.9-1.1) APTT (21.0-31.0) Seconds PTT Ratio Sodium 138 (136-145) mmol/L Potassium 4.0 (3.5-5.1) mmol/L Chloride 109 H (98-107) mmol/L Carbon Dioxide 23 (21-32) mmol/L Anion Gap 6.0 (3-11) BUN 21 H (7-18) mg/dl Creatinine 1.24 (0.6-1.4) mg/dl Est Cr Clr Drug Dosing 41.5 ml/min Est GFR ( Amer) 63.7 ml/min Est GFR (Non-Af Amer) 54.9 ml/min BUN/Creatinine Ratio 17.0 (10-20) Glucose 102 H (70-99) mg/dl Calcium 9.1 (8.5-10.1) mg/dl Magnesium (1.8-2.4) mg/dl Total Bilirubin 0.3 (0.2-1) mg/dl AST 10 L (15-37) U/L ALT 17 (12-78) U/L Alkaline Phosphatase 100 (45-117) U/L Troponin I < 0.015 (0-0.045) ng/ml Total Protein 7.3 (6.4-8.2) gm/dl Albumin 3.8 (3.4-5.0) gm/dl Globulin 3.5 (2.5-4.0) gm/dl Albumin/Globulin Ratio 1.1 (0.9-2) Triglycerides (0-150) mg/dl Cholesterol (0-200) mg/dl LDL Cholesterol, Calc mg/dl VLDL Cholesterol, Calc mg/dl HDL Cholesterol mg/dl Cholesterol/HDL Ratio Lipase 86 (73-393) U/L COVID-19 Eval Order Covid19 at [facility] SARS-CoV-2 (PCR) NEGATIVE (Negative) 11/03/20 11/03/20 Range/Units 20:09 20:09 WBC 6.84 (4.8-10.8) K/uL RBC 4.40 L (4.7-6.1) M/uL Hgb 13.5 L (14.0-18.0) g/dL Hct 39.5 L (42-52) % MCV 89.8 (80-100) fL MCH 30.7 (25-34) pg MCHC 34.2 (32-36) g/dL RDW Std Deviation 42.3 (36.4-46.3) fL RDW Coeff of Filippo 12.9 (11.5-14.5) % Plt Count 263 (130-400) K/uL MPV 10.1 (7.4-10.4) fL Immature Gran % (Auto) 0.1 % Neut % (Auto) 54.7 % Lymph % (Auto) 31.1 % Divide % (Auto) 10.7 % Eos % (Auto) 3.1 % Baso % (Auto) 0.3 % Neut # (Auto) 3.74 (1.4-6.5) K/uL Lymph # (Auto) 2.13 (1.2-3.4) K/uL Divide # (Auto) 0.73 H (0.11-0.59) K/uL Eos # (Auto) 0.21 (0-0.5) K/uL Baso # (Auto) 0.02 (0-0.2) K/uL Immature Gran # (Auto) 0.01 (0.00-0.02) K/uL PT 10.2 (9.0-12.0) Seconds INR 1.0 (0.9-1.1) APTT 26.2 (21.0-31.0) Seconds PTT Ratio 1.0 Sodium (136-145) mmol/L Potassium (3.5-5.1) mmol/L Chloride (98-107) mmol/L Carbon Dioxide (21-32) mmol/L Anion Gap (3-11) BUN (7-18) mg/dl Creatinine (0.6-1.4) mg/dl Est Cr Clr Drug Dosing ml/min Est GFR ( Amer) ml/min Est GFR (Non-Af Amer) ml/min BUN/Creatinine Ratio (10-20) Glucose (70-99) mg/dl Calcium (8.5-10.1) mg/dl Magnesium (1.8-2.4) mg/dl Total Bilirubin (0.2-1) mg/dl AST (15-37) U/L ALT (12-78) U/L Alkaline Phosphatase (45-117) U/L Troponin I (0-0.045) ng/ml Total Protein (6.4-8.2) gm/dl Albumin (3.4-5.0) gm/dl Globulin (2.5-4.0) gm/dl Albumin/Globulin Ratio (0.9-2) Triglycerides (0-150) mg/dl Cholesterol (0-200) mg/dl LDL Cholesterol, Calc mg/dl VLDL Cholesterol, Calc mg/dl HDL Cholesterol mg/dl Cholesterol/HDL Ratio Lipase (73-393) U/L COVID-19 Eval Order SARS-CoV-2 (PCR) (Negative) Medications Administered Current Inpatient Medications Acetaminophen (Acetaminophen 325 Mg Tab) 650 mg PO Q4H PRN PRN Reason: Pain or Fever Stop: 12/04/20 00:46 Albuterol (Albuterol Hfa 8 Gm Inhaler (Combivent Respimat P&T Subs)) 1 puffs INH QIDR ROLY Stop: 12/04/20 06:59 Benzonatate (Benzonatate 100 Mg Capsule) 100 mg PO TID PRN PRN Reason: Cough Stop: 12/04/20 00:46 Heparin Sodium/Dextrose (Heparin Sodium/Dextrose) 25,000 units in 500 mls @ 21 mls/hr IV .[id number] [facility]; Protocol Stop: 12/03/20 20:20 Last Admin: 11/04/20 05:41 Dose: Not Given Documented by: Ipratropium [place] (Ipratropium Hfa Inhaler (Combivent Respimat P&T Subs)) 1 puffs INH QIDR ROLY Stop: 12/04/20 06:59 Metoprolol Tartrate (Metoprolol Tartrate 25 Mg Tab) 25 mg PO BID [facility] Stop: 12/03/20 23:14 Last Admin: 11/04/20 08:53 Dose: 25 mg Documented by: Montelukast Sodium (Montelukast Sodium 10 Mg Tablet) 10 mg PO DAILY ROLY Stop: 12/04/20 08:59 Last Admin: 11/04/20 08:53 Dose: 10 mg Documented by: Nitroglycerin (Nitroglycerin Sl 0.4 Mg/Tab Tab) 0.4 mg SL UD PRN PRN Reason: Chest Pain Stop: 12/04/20 00:46 Olanzapine (Olanzapine 5 Mg Tablet) 5 mg PO DAILY [facility] Stop: 12/04/20 08:59 Last Admin: 11/04/20 08:53 Dose: 5 mg Documented by: Polyethylene Glycol (Polyethylene (Miralax) 17 Gm Pack) 17 gm PO DAILY PRN PRN Reason: Constipation Stop: 12/04/20 00:46
[2020-11-04 10:35] LABS: Partial Thromboplastin Ratio 2.6
[2020-11-04 10:43] LABS: Partial Thromboplastin Time 68.9 Seconds (21.0-31.0)
[2020-11-04] MEDS: Ipratropium HFA Inhaler (Combivent Respimat P&T Subs) INH SCH ×4 (10:45→19:07)
[2020-11-04] MEDS: Albuterol HFA 8 GM Inhaler (Combivent Respimat P&T Subs) INH SCH ×4 (10:45→19:06)
[2020-11-04] MEDS: WARFARIN SOD 10 MG TAB PO SCH (16:08)
[2020-11-04 17:54] LABS: Partial Thromboplastin Ratio 2.4
[2020-11-04 18:18] LABS: Partial Thromboplastin Time 62.2 Seconds (21.0-31.0)
[2020-11-05 06:09] LABS: Hematocrit (blood only) 41.1 % (42-52); Hemoglobin 13.8 g/dL (14.0-18.0); Mean Corpuscular Hemoglobin 30.7 pg (25-34); Mean Corpuscular Hgb Conc 33.6 g/dL (32-36); Mean Corpuscular Volume 91.3 fL (80-100); Mean Platelet Volume 10.4 fL (7.4-10.4); Platelet Count 305 K/uL (130-400); RDW Coefficient of Variation 13.3 % (11.5-14.5); RDW Standard Deviation 44.5 fL (36.4-46.3); White Blood Count 7.59 K/uL (4.8-10.8)
[2020-11-05 06:27] LABS: BUN Creatinine Ratio 17.3 (10-20); Calcium 9.1 mg/dl (8.5-10.1); Creatinine Clr Calc Pharmacy 35.4 ml/min; Est GFR (African American) 53.6 ml/min; Est GFR (Non-African American) 46.3 ml/min; Magnesium 2.1 mg/dl (1.8-2.4); Phosphorus 2.6 mg/dl (2.5-4.9); Potassium 4.3 mmol/L (3.5-5.1)
[2020-11-05 06:40] LABS: INR 1.1 (0.9-1.1); Partial Thromboplastin Ratio 2.6; Prothrombin Time 11.4 Seconds (9.0-12.0)
[2020-11-05 06:45] LABS: Partial Thromboplastin Time 67.8 Seconds (21.0-31.0)
[2020-11-05] MEDS: Albuterol HFA 8 GM Inhaler (Combivent Respimat P&T Subs) INH SCH (07:36)
[2020-11-05] MEDS: Ipratropium HFA Inhaler (Combivent Respimat P&T Subs) INH SCH (07:36)
--- NOTE | 2020-11-05 07:44 | Electrocardiogram Report ---
Test Reason : Blood Pressure : / mmHG Vent. Rate : 071 BPM Atrial Rate : 071 BPM P-R Int : 176 ms QRS Dur : 068 ms QT Int : 346 ms P-R-T Axes : 063 -02 060 degrees QTc Int : 375 ms Poor data quality, interpretation may be adversely affected Normal sinus rhythm Possible Septal infarct , age undetermined Abnormal ECG When compared with ECG of 07-APR-2014 22:59, QRS duration has decreased Septal infarct is now Present Nonspecific T wave abnormality no longer evident in Inferior leads QT has shortened Confirmed by Javier Borges ([id number]) on 11/05/2020 7:43:37 AM Referred By: REFERRED SELF Confirmed By:Javier Borges
--- NOTE | 2020-11-05 07:51 | Hospitalist Progress Note ---
Date of Service November 05, 2020 Assessment & Plan (1) Left ventricular apical thrombus: (2) Systolic murmur: (3) Systolic dysfunction: (4) Dizziness: This is a 80-year-old male who presents with apical mural thrombus. 1. Apical mural thrombus: Started on IV heparin. Monitor in the tele floor. Further management as per cardiology. Repeat echocardiogram -LV is normal in size. There is severe septal hypokinesis. There is anterior wall akinesis. There is apical akinesis. EF 45 to 50%. There is a moderate size apical thrombus. The right ventricular systolic function is normal. LA size is normal. RA size is normal. Mild to mo derate aortic regurg. Mild tricuspid regurg. Patient started on warfarin Monitor INR 2. Congestive heart failure, systolic: EF fraction of 45%, new. Initial troponin negative, then 0.017 Ischemic causes not ruled out. Ischemic cardiomyopathy? The patient is euvolemic. Started on metoprolol Consider IGLESIA inhibitor as long as kidney function remains stable and BP permits. Should patient become hypervolemic consider addition of loop diuretic. AM lipid profile - TC 202, LDL 137, TG 105 Workup and optimization of medications as per cardiology. 3. Hypertension: Blood pressure is elevated. Started on Lopressor 25 b.i.d. 4. Dementia: Monitor for delirium. On olanzapine. 5. Chronic kidney disease stage III: Will follow the labs. 6. History of chronic obstructive pulmonary disease: Continue home Combivent. 7. Deep vein thrombosis prophylaxis: On IV heparin. DISPOSITION: Closely monitor in tele floor. Expect to discharge home and follow with family doctor. PT and OT prior to discharge. Social service to help with discharge planning. Admission and Anticipated Discharge Date Admission Date: November 03, 2020 Subjective Patient seen in follow-up of mural thrombus, dizziness Currently patient is lying in bed in no acute distress, he is able to answer some questions appropriately however due to dementia not able to answer all my questions Denies any chest pain shortness of breath, says dizziness is occasional No abdominal pain, nausea or vomiting He is currently on IV heparin Patient's daughter updated over the phone Review of Systems Review of Systems: All systems reviewed & are unremarkable except as noted in HPI & below Constitutional: no fever and no chills Respiratory: no cough and no dyspnea Cardiovascular: no chest pain and no palpitations Gastrointestinal: no abdominal pain, no nausea and no vomiting Physical Exam Physical Exam: GENERAL: The patient is of moderate build, not in acute distress. HEENT: No pallor, no icterus. Oral mucosa moist. NECK: No JVD, no neck masses. CARDIOVASCULAR: S1, S2 heard, regular rate and rhythm, +murmur, no gallop. RESPIRATORY: Normal AP diameter. No accessory muscle use. No wheezing, no crackles. ABDOMEN: Soft, bowel sounds present, nontender. No distention. NEURO: Awake but only able to answer some questions appropriately due to dementia, moves extremities EXTREMITIES: No edema, no erythema. Results & Data Results & Data ([facility]) Vital Signs (Past 12 Hours) Vital Signs Temp Pulse Pulse Resp BP Pulse Ox 11/05/20 07:36 103 H 18 98 11/05/20 03:49 102/51 L 11/05/20 03:10 36.6 C 60 20 70/45 L 96 11/05/20 01:40 66 11/04/20 23:17 36.7 C 75 20 108/69 96 Laboratory Results 11/05/20 11/05/20 11/05/20 Range/Units 05:20 05:20 05:20 WBC 7.59 (4.8-10.8) K/uL RBC 4.50 L (4.7-6.1) M/uL Hgb 13.8 L (14.0-18.0) g/dL Hct 41.1 L (42-52) % MCV 91.3 (80-100) fL MCH 30.7 (25-34) pg MCHC 33.6 (32-36) g/dL RDW Std Deviation 44.5 (36.4-46.3) fL RDW Coeff of Filippo 13.3 (11.5-14.5) % Plt Count 305 (130-400) K/uL MPV 10.4 (7.4-10.4) fL PT (9.0-12.0) Seconds INR (0.9-1.1) APTT Cancelled (21.0-31.0) Seconds PTT Ratio Cancelled Sodium 139 (136-145) mmol/L Potassium 4.3 (3.5-5.1) mmol/L Chloride 109 H (98-107) mmol/L Carbon Dioxide 24 (21-32) mmol/L Anion Gap 6.0 (3-11) BUN 25 H (7-18) mg/dl Creatinine 1.43 H (0.6-1.4) mg/dl Est Cr Clr Drug Dosing 35.4 ml/min Est GFR ( Amer) 53.6 ml/min Est GFR (Non-Af Amer) 46.3 ml/min BUN/Creatinine Ratio 17.3 (10-20) Glucose 104 H (70-99) mg/dl Calcium 9.1 (8.5-10.1) mg/dl Phosphorus 2.6 (2.5-4.9) mg/dl Magnesium 2.1 (1.8-2.4) mg/dl 11/05/20 11/04/20 11/04/20 Range/Units 05:20 17:10 09:55 WBC (4.8-10.8) K/uL RBC (4.7-6.1) M/uL Hgb (14.0-18.0) g/dL Hct (42-52) % MCV (80-100) fL MCH (25-34) pg MCHC (32-36) g/dL RDW Std Deviation (36.4-46.3) fL RDW Coeff of Filippo (11.5-14.5) % Plt Count (130-400) K/uL MPV (7.4-10.4) fL PT 11.4 (9.0-12.0) Seconds INR 1.1 (0.9-1.1) APTT 67.8 H* 62.2 H* 68.9 H* (21.0-31.0) Seconds PTT Ratio 2.6 2.4 2.6 Sodium (136-145) mmol/L Potassium (3.5-5.1) mmol/L Chloride (98-107) mmol/L Carbon Dioxide (21-32) mmol/L Anion Gap (3-11) BUN (7-18) mg/dl Creatinine (0.6-1.4) mg/dl Est Cr Clr Drug Dosing ml/min Est GFR ( Amer) ml/min Est GFR (Non-Af Amer) ml/min BUN/Creatinine Ratio (10-20) Glucose (70-99) mg/dl Calcium (8.5-10.1) mg/dl Phosphorus (2.5-4.9) mg/dl Magnesium (1.8-2.4) mg/dl Medications Administered Current Inpatient Medications Acetaminophen (Acetaminophen 325 Mg Tab) 650 mg PO Q4H PRN PRN Reason: Pain or Fever Stop: 12/04/20 00:46 Albuterol (Albuterol Hfa 8 Gm Inhaler (Combivent Respimat P&T Subs)) 1 puffs INH QIDR [facility] Stop: 12/04/20 06:59 Last Admin: 11/05/20 07:36 Dose: 1 puffs Documented by: Benzonatate (Benzonatate 100 Mg Capsule) 100 mg PO TID PRN PRN Reason: Cough Stop: 12/04/20 00:46 Heparin Sodium/Dextrose (Heparin Sodium/Dextrose) 25,000 units in 500 mls @ 20 mls/hr IV .Q24H [facility]; Protocol Stop: 12/03/20 20:20 Last Titration: 11/05/20 07:11 Dose: 950 units/hr, 19 mls/hr Documented by: Ipratropium [place] (Ipratropium Hfa Inhaler (Combivent Respimat P&T Subs)) 1 puffs INH QIDR [facility] Stop: 12/04/20 06:59 Last Admin: 11/05/20 07:36 Dose: 1 puffs Documented by: Metoprolol Tartrate (Metoprolol Tartrate 25 Mg Tab) 25 mg PO BID [facility] Stop: 12/03/20 23:14 Last Admin: 11/04/20 20:14 Dose: 25 mg Documented by: Montelukast Sodium (Montelukast Sodium 10 Mg Tablet) 10 mg PO DAILY [facility] Stop: 12/04/20 08:59 Last Admin: 11/04/20 08:53 Dose: 10 mg Documented by: Nitroglycerin (Nitroglycerin Sl 0.4 Mg/Tab Tab) 0.4 mg SL UD PRN PRN Reason: Chest Pain Stop: 12/04/20 00:46 Olanzapine (Olanzapine 5 Mg Tablet) 5 mg PO DAILY [facility] Stop: 12/04/20 08:59 Last Admin: 11/04/20 08:53 Dose: 5 mg Documented by: Polyethylene Glycol (Polyethylene (Miralax) 17 Gm Pack) 17 gm PO DAILY PRN PRN Reason: Constipation Stop: 12/04/20 00:46 Warfarin Sodium (Warfarin Sod 10 Mg Tab) 10 mg PO DAILY@1600 [facility] Stop: 12/04/20 15:59 Last Admin: 11/04/20 16:08 Dose: 10 mg Documented by:
[2020-11-05] MEDS: MONTELUKAST SODIUM 10 MG TABLET PO SCH (08:15)
[2020-11-05] MEDS: OLANZapine 5 MG TABLET PO SCH (08:16)
[2020-11-05] MEDS: METOPROLOL TARTRATE 25 MG TAB PO SCH ×2 (09:12→20:29)
[2020-11-05] MEDS: ATORVASTATIN 20 MG TAB PO SCH (09:13)
[2020-11-05] MEDS ORDERED: ALBUTEROL HFA 8 GM INHALER INH PRN (09:17)
[2020-11-05] MEDS ORDERED: IPRATROPIUM BROMIDE HFA INHALER INH PRN (09:17)
[2020-11-05 13:06] LABS: Partial Thromboplastin Ratio 2.8
[2020-11-05 13:18] LABS: Partial Thromboplastin Time 74.4 Seconds (21.0-31.0)
[2020-11-05] MEDS: HEPARIN SODIUM/DEXTROSE 25,000 UNITS/500 ML BAG IV SCH (15:15)
--- NOTE | 2020-11-05 15:44 | Cardiology Progress Note ---
Date of Service November 05, 2020 Assessment & Plan (1) Left ventricular apical thrombus: Patient is a 80-year-old male with history of vascular dementia underlying pulmonary issues with symptoms of pulmonary exacerbations earlier this year. Recent outpatient evaluation demonstrated abnormal EKG and possible new murmur and patient was referred for echocardiogram with study demonstrating anteroapical infarct with apical thrombus. Findings were not suggestive of acute process. Plan is already begun with IV heparin with conversion to full anticoagulation with warfarin. We will treat underlying coronary artery disease/infarct. Continue beta-nori add statin and aspirin with possible IGLESIA inhibitor if blood pressure will allow in the future (2) Systolic dysfunction: (3) Dizziness: (4) Vascular dementia: Admission and Anticipated Discharge Date Admission Date: November 03, 2020 Subjective Patient was seen and examined, chart, medications, telemetry reviewed. Patient denies any acute complaints or issues. No arrhythmias on telemetry. Currently receiving IV heparin with plans for conversion to full anticoagulation with warfarin. He denies any chest pains dizziness or lightheadedness. No tachypalpitations. Appetite is good. Review of Systems Review of Systems: All systems reviewed & are unremarkable except as noted in HPI & below Physical Exam Constitutional: WD/WN, vitals as above no acute distress Eyes: PERRL, conjunctivae normal, anicteric sclerae ENMT: external ear and nose normal, oropharynx normal Neck: trachea midline, no thyromegaly Respiratory: normal respiratory effort, lungs clear to auscultation Cardiovascular: Rate/Rhythm: regular rate and regular rhythm Heart Sounds: normal S1 and normal S2; no gallop and no murmur Palpation: normal PMI Vessels: normal carotid upstroke and radial pulses present; no JVD and no carotid bruit Extremities: no edema Gastrointestinal (Abdomen): normal bowel sounds, soft, nontender, no hepatosplenomegaly Musculoskeletal: no cyanosis or clubbing, extremities motor strength 5/5 Skin: no rashes, warm and dry Neurologic: PERRL, EOMI, accommodation nl, no face palsy, no dysarthria Psychiatric: A+Ox3, euthymic affect Results & Data ([facility]) Vital Signs (Past 12 Hours) Vital Signs Temp Pulse Resp BP Pulse Ox 11/05/20 12:09 36.8 C 84 20 112/72 98 11/05/20 07:49 37.0 C 76 22 109/64 100 11/05/20 07:36 103 H 18 98 11/05/20 03:49 102/51 L Laboratory Results Laboratory Results - last 24 hr 11/04/20 11/05/20 11/05/20 17:10 05:20 05:20 WBC 7.59 RBC 4.50 L Hgb 13.8 L Hct 41.1 L MCV 91.3 MCH 30.7 MCHC 33.6 RDW Std Deviation 44.5 RDW Coeff of Filippo 13.3 Plt Count 305 MPV 10.4 PT 11.4 INR 1.1 APTT 62.2 H* 67.8 H* PTT Ratio 2.4 2.6 Sodium Potassium Chloride Carbon Dioxide Anion Gap BUN Creatinine Est Cr Clr Drug Dosing Est GFR ( Amer) Est GFR (Non-Af Amer) BUN/Creatinine Ratio Glucose Calcium Phosphorus Magnesium 11/05/20 11/05/20 11/05/20 05:20 05:20 12:37 WBC RBC Hgb Hct MCV MCH MCHC RDW Std Deviation RDW Coeff of Filippo Plt Count MPV PT INR APTT Cancelled 74.4 H* PTT Ratio Cancelled 2.8 Sodium 139 Potassium 4.3 Chloride 109 H Carbon Dioxide 24 Anion Gap 6.0 BUN 25 H Creatinine 1.43 H Est Cr Clr Drug Dosing 35.4 Est GFR ( Amer) 53.6 Est GFR (Non-Af Amer) 46.3 BUN/Creatinine Ratio 17.3 Glucose 104 H Calcium 9.1 Phosphorus 2.6 Magnesium 2.1 Diagnostic Findings Current Medications Acetaminophen (Acetaminophen 325 Mg Tab) 650 mg PO Q4H PRN PRN Reason: Pain or Fever Stop: 12/04/20 00:46 Albuterol (Albuterol Hfa 8 Gm Inhaler) 1 puffs INH QIDR PRN PRN Reason: Shortness Of Breath Or Wheezing Stop: 12/04/20 06:59 Atorvastatin Calcium (Atorvastatin 20 Mg Tab) 20 mg PO QAM [facility] Stop: 12/05/20 08:59 Last Admin: 11/05/20 09:13 Dose: 20 mg Documented by: Benzonatate (Benzonatate 100 Mg Capsule) 100 mg PO TID PRN PRN Reason: Cough Stop: 12/04/20 00:46 Heparin Sodium/Dextrose (Heparin Sodium/Dextrose) 25,000 units in 500 mls @ 19 mls/hr IV .Q24H [facility]; Protocol Stop: 12/03/20 20:20 Last Admin: 11/05/20 15:15 Dose: Not Given Documented by: Ipratropium [place] (Ipratropium [place] Hfa Inhaler) 1 puffs INH QIDR PRN PRN Reason: Shortness Of Breath Or Wheezing Stop: 12/04/20 06:59 Metoprolol Tartrate (Metoprolol Tartrate 25 Mg Tab) 25 mg PO BID [facility] Stop: 12/03/20 23:14 Last Admin: 11/05/20 09:12 Dose: Not Given Documented by: Montelukast Sodium (Montelukast Sodium 10 Mg Tablet) 10 mg PO DAILY [facility] Stop: 12/04/20 08:59 Last Admin: 11/05/20 08:15 Dose: 10 mg Documented by: Nitroglycerin (Nitroglycerin Sl 0.4 Mg/Tab Tab) 0.4 mg SL UD PRN PRN Reason: Chest Pain Stop: 12/04/20 00:46 Olanzapine (Olanzapine 5 Mg Tablet) 5 mg PO DAILY [facility] Stop: 12/04/20 08:59 Last Admin: 11/05/20 08:16 Dose: 5 mg Documented by: Polyethylene Glycol (Polyethylene (Miralax) 17 Gm Pack) 17 gm PO DAILY PRN PRN Reason: Constipation Stop: 12/04/20 00:46 Warfarin Sodium (Warfarin Sod 10 Mg Tab) 10 mg PO DAILY@1600 [facility] Stop: 12/04/20 15:59 Last Admin: 11/04/20 16:08 Dose: 10 mg Documented by:
[2020-11-05] MEDS: WARFARIN SOD 10 MG TAB PO SCH (17:06)
[2020-11-05 20:13] LABS: Partial Thromboplastin Ratio 2.3
[2020-11-05 21:02] LABS: Partial Thromboplastin Time 59.3 Seconds (21.0-31.0)
[2020-11-06] MEDS: HEPARIN SODIUM/DEXTROSE 25,000 UNITS/500 ML BAG IV SCH (00:49)
[2020-11-06 05:51] LABS: Hematocrit (blood only) 38.2 % (42-52); Mean Corpuscular Hemoglobin 30.4 pg (25-34); Mean Corpuscular Volume 89.5 fL (80-100); Mean Platelet Volume 10.1 fL (7.4-10.4); Platelet Count 264 K/uL (130-400); RDW Coefficient of Variation 13.3 % (11.5-14.5); RDW Standard Deviation 43.1 fL (36.4-46.3); Red Blood Count 4.27 M/uL (4.7-6.1); White Blood Count 6.08 K/uL (4.8-10.8)
[2020-11-06 06:13] LABS: BUN Creatinine Ratio 23.3 (10-20); Calcium 9.4 mg/dl (8.5-10.1); Creatinine Clr Calc Pharmacy 40.5 ml/min; Est GFR (African American) 63.7 ml/min; Est GFR (Non-African American) 54.9 ml/min; Potassium 4.2 mmol/L (3.5-5.1)
[2020-11-06 06:16] LABS: INR 1.9 (0.9-1.1); Prothrombin Time 18.3 Seconds (9.0-12.0)
--- NOTE | 2020-11-06 07:39 | Hospitalist Progress Note ---
Date of Service November 06, 2020 Assessment & Plan (1) Left ventricular apical thrombus: (2) Systolic murmur: (3) Systolic dysfunction: (4) Dizziness: This is a 80-year-old male who presents with apical mural thrombus. 1. Apical mural thrombus: Started on IV heparin. Monitor in the tele floor. Further management as per cardiology. Repeat echocardiogram -LV is normal in size. There is severe septal hypokinesis. There is anterior wall akinesis. There is apical akinesis. EF 45 to 50%. There is a moderate size apical thrombus. The right ventricular systolic function is normal. LA size is normal. RA size is normal. Mild to mo derate aortic regurg. Mild tricuspid regurg. Patient started on warfarin Monitor INR, current 1.9 2. Congestive heart failure, systolic: EF fraction of 45%, new. Initial troponin negative, then 0.017 Ischemic cardiomyopathy? Findings not suggestive of acute process. The patient is euvolemic. Started on metoprolol Consider IGLESIA inhibitor as long as kidney function remains stable and BP permits. Should patient become hypervolemic consider addition of loop diuretic. AM lipid profile - TC 202, LDL 137, TG 105 Workup and optimization of medications as per cardiology. 3. Hypertension: Blood pressure is elevated. Started on Lopressor 25 b.i.d. 4. Dementia: Monitor for delirium. On olanzapine. 5. Chronic kidney disease stage III: Will follow the labs. 6. History of chronic obstructive pulmonary disease: Continue home Combivent. 7. Deep vein thrombosis prophylaxis: On IV heparin. DISPOSITION: Closely monitor in tele floor. Expect to discharge home and follow with family doctor. PT and OT prior to discharge. Social service to help with discharge planning. Admission and Anticipated Discharge Date Admission Date: November 03, 2020 Subjective Patient seen in follow-up of mural thrombus, dizziness Currently patient is sitting up in bed in no acute distress, he is able to answer some questions appropriately however due to dementia not able to answer all my questions Granddaughter at the bedside Pt Denies any chest pain shortness of breath, says dizziness is occasional No abdominal pain, nausea or vomiting He is currently on IV heparin Review of Systems Review of Systems: All systems reviewed & are unremarkable except as noted in HPI & below Constitutional: no fever and no chills Respiratory: no cough and no dyspnea Cardiovascular: no chest pain and no palpitations Gastrointestinal: no abdominal pain, no nausea and no vomiting Physical Exam Physical Exam: GENERAL: The patient is of moderate build, not in acute distress. HEENT: No pallor, no icterus. Oral mucosa moist. NECK: No JVD, no neck masses. CARDIOVASCULAR: S1, S2 heard, regular rate and rhythm, +murmur, no gallop. RESPIRATORY: Normal AP diameter. No accessory muscle use. No wheezing, no crackles. ABDOMEN: Soft, bowel sounds present, nontender. No distention. NEURO: Awake and alert but only able to answer some questions appropriately due to dementia, moves extremities EXTREMITIES: No edema, no erythema. Results & Data Results & Data ([facility]) Vital Signs (Past 12 Hours) Vital Signs Temp Pulse Pulse Resp BP Pulse Ox 11/06/20 04:54 36.6 C 65 22 104/61 95 11/06/20 01:07 70 11/05/20 23:30 36.6 C 70 22 109/64 95 11/05/20 20:26 83 155/75 H Laboratory Results 11/06/20 11/06/20 11/06/20 Range/Units 05:22 05:22 05:22 WBC 6.08 (4.8-10.8) K/uL RBC 4.27 L (4.7-6.1) M/uL Hgb 13.0 L (14.0-18.0) g/dL Hct 38.2 L (42-52) % MCV 89.5 (80-100) fL MCH 30.4 (25-34) pg MCHC 34.0 (32-36) g/dL RDW Std Deviation 43.1 (36.4-46.3) fL RDW Coeff of Filippo 13.3 (11.5-14.5) % Plt Count 264 (130-400) K/uL MPV 10.1 (7.4-10.4) fL PT 18.3 H (9.0-12.0) Seconds INR 1.9 H (0.9-1.1) APTT 79.0 H* (21.0-31.0) Seconds PTT Ratio 3.0 Sodium 140 (136-145) mmol/L Potassium 4.2 (3.5-5.1) mmol/L Chloride 111 H (98-107) mmol/L Carbon Dioxide 22 (21-32) mmol/L Anion Gap 7.0 (3-11) BUN 29 H (7-18) mg/dl Creatinine 1.24 (0.6-1.4) mg/dl Est Cr Clr Drug Dosing 40.5 ml/min Est GFR ( Amer) 63.7 ml/min Est GFR (Non-Af Amer) 54.9 ml/min BUN/Creatinine Ratio 23.3 H (10-20) Glucose 95 (70-99) mg/dl Calcium 9.4 (8.5-10.1) mg/dl 11/05/20 11/05/20 Range/Units 19:25 12:37 WBC (4.8-10.8) K/uL RBC (4.7-6.1) M/uL Hgb (14.0-18.0) g/dL Hct (42-52) % MCV (80-100) fL MCH (25-34) pg MCHC (32-36) g/dL RDW Std Deviation (36.4-46.3) fL RDW Coeff of Filippo (11.5-14.5) % Plt Count (130-400) K/uL MPV (7.4-10.4) fL PT (9.0-12.0) Seconds INR (0.9-1.1) APTT 59.3 H* 74.4 H* (21.0-31.0) Seconds PTT Ratio 2.3 2.8 Sodium (136-145) mmol/L Potassium (3.5-5.1) mmol/L Chloride (98-107) mmol/L Carbon Dioxide (21-32) mmol/L Anion Gap (3-11) BUN (7-18) mg/dl Creatinine (0.6-1.4) mg/dl Est Cr Clr Drug Dosing ml/min Est GFR ( Amer) ml/min Est GFR (Non-Af Amer) ml/min BUN/Creatinine Ratio (10-20) Glucose (70-99) mg/dl Calcium (8.5-10.1) mg/dl Medications Administered Current Inpatient Medications Acetaminophen (Acetaminophen 325 Mg Tab) 650 mg PO Q4H PRN PRN Reason: Pain or Fever Stop: 12/04/20 00:46 Albuterol (Albuterol Hfa 8 Gm Inhaler) 1 puffs INH QIDR PRN PRN Reason: Shortness Of Breath Or Wheezing Stop: 12/04/20 06:59 Atorvastatin Calcium (Atorvastatin 20 Mg Tab) 20 mg PO QAM [facility] Stop: 12/05/20 08:59 Last Admin: 11/05/20 09:13 Dose: 20 mg Documented by: Benzonatate (Benzonatate 100 Mg Capsule) 100 mg PO TID PRN PRN Reason: Cough Stop: 12/04/20 00:46 Heparin Sodium/Dextrose (Heparin Sodium/Dextrose) 25,000 units in 500 mls @ 18 mls/hr IV .Q24H [facility]; Protocol Stop: 12/03/20 20:20 Last Titration: 11/06/20 06:50 Dose: 850 units/hr, 17 mls/hr Documented by: Ipratropium [place] (Ipratropium [place] Hfa Inhaler) 1 puffs INH QIDR PRN PRN Reason: Shortness Of Breath Or Wheezing Stop: 12/04/20 06:59 Metoprolol Tartrate (Metoprolol Tartrate 25 Mg Tab) 25 mg PO BID [facility] Stop: 12/03/20 23:14 Last Admin: 11/05/20 20:29 Dose: 25 mg Documented by: Montelukast Sodium (Montelukast Sodium 10 Mg Tablet) 10 mg PO DAILY [facility] Stop: 12/04/20 08:59 Last Admin: 11/05/20 08:15 Dose: 10 mg Documented by: Nitroglycerin (Nitroglycerin Sl 0.4 Mg/Tab Tab) 0.4 mg SL UD PRN PRN Reason: Chest Pain Stop: 12/04/20 00:46 Olanzapine (Olanzapine 5 Mg Tablet) 5 mg PO DAILY [facility] Stop: 12/04/20 08:59 Last Admin: 11/05/20 08:16 Dose: 5 mg Documented by: Polyethylene Glycol (Polyethylene (Miralax) 17 Gm Pack) 17 gm PO DAILY PRN PRN Reason: Constipation Stop: 12/04/20 00:46 Warfarin Sodium (Warfarin Sod 10 Mg Tab) 10 mg PO DAILY@1600 [facility] Stop: 12/04/20 15:59 Last Admin: 11/05/20 17:06 Dose: 10 mg Documented by:
[2020-11-06] MEDS: METOPROLOL TARTRATE 25 MG TAB PO SCH ×2 (07:45→20:06)
[2020-11-06] MEDS: MONTELUKAST SODIUM 10 MG TABLET PO SCH (07:46)
[2020-11-06] MEDS: ATORVASTATIN 20 MG TAB PO SCH (07:46)
[2020-11-06] MEDS: OLANZapine 5 MG TABLET PO SCH (07:46)
--- NOTE | 2020-11-06 11:23 | Cardiology Progress Note ---
Date of Service November 06, 2020 Assessment & Plan (1) Left ventricular apical thrombus: Patient is a 80-year-old male with history of vascular dementia underlying pulmonary issues with symptoms of pulmonary exacerbations earlier this year. Recent outpatient evaluation demonstrated abnormal EKG and possible new murmur and patient was referred for echocardiogram with study demonstrating anteroapical infarct with apical thrombus. Findings were not suggestive of acute process. Plan is already begun with IV heparin with conversion to full anticoagulation with warfarin. We will treat underlying coronary artery disease/infarct. Continue beta-nori add statin and aspirin with possible IGLESIA inhibitor if blood pressure will allow post discharge Will need cardiology follow-up (2) Systolic dysfunction: (3) Dizziness: (4) Vascular dementia: Admission and Anticipated Discharge Date Admission Date: November 03, 2020 Subjective Patient was seen and examined, chart, medications, telemetry reviewed. No cardiac complaints. No arrhythmias on telemetry Physical Exam Constitutional: WD/WN, vitals as above no acute distress Eyes: PERRL, conjunctivae normal, anicteric sclerae ENMT: external ear and nose normal, oropharynx normal Neck: trachea midline, no thyromegaly Respiratory: normal respiratory effort, lungs clear to auscultation Cardiovascular: Rate/Rhythm: regular rate and regular rhythm Heart Sounds: normal S1 and normal S2; no gallop and no murmur Palpation: normal PMI Vessels: normal carotid upstroke and radial pulses present; no JVD and no carotid bruit Extremities: no edema Gastrointestinal (Abdomen): normal bowel sounds, soft, nontender, no hepatosplenomegaly Musculoskeletal: no cyanosis or clubbing, extremities motor strength 5/5 Skin: no rashes, warm and dry Neurologic: PERRL, EOMI, accommodation nl, no face palsy, no dysarthria Psychiatric: A+Ox3, euthymic affect Results & Data ([facility]) Vital Signs (Past 12 Hours) Vital Signs Temp Pulse Pulse Resp BP Pulse Ox 11/06/20 08:16 62 11/06/20 08:03 36.8 C 60 18 110/66 96 11/06/20 04:54 36.6 C 65 22 104/61 95 11/06/20 01:07 70 11/05/20 23:30 36.6 C 70 22 109/64 95
[2020-11-06 13:28] LABS: Partial Thromboplastin Time 79.7 Seconds (21.0-31.0)
[2020-11-06] MEDS: WARFARIN SOD 10 MG TAB PO SCH (15:57)
[2020-11-06 19:53] LABS: Partial Thromboplastin Ratio 2.4
[2020-11-06 19:58] LABS: Partial Thromboplastin Time 64.4 Seconds (21.0-31.0)
[2020-11-07 06:39] LABS: Hematocrit (blood only) 38.7 % (42-52); Hemoglobin 13.1 g/dL (14.0-18.0)
[2020-11-07] MEDS: HEPARIN SODIUM/DEXTROSE 25,000 UNITS/500 ML BAG IV SCH (07:07)
[2020-11-07 07:12] LABS: INR 3.7 (0.9-1.1); Prothrombin Time 33.6 Seconds (9.0-12.0)
[2020-11-07 07:17] LABS: BUN Creatinine Ratio 18.7 (10-20); Calcium 8.9 mg/dl (8.5-10.1); Creatinine Clr Calc Pharmacy 39.6 ml/min; Est GFR (African American) 60.7 ml/min; Est GFR (Non-African American) 52.4 ml/min; Potassium 4.3 mmol/L (3.5-5.1)
[2020-11-07] MEDS: MONTELUKAST SODIUM 10 MG TABLET PO SCH (08:23)
[2020-11-07] MEDS: OLANZapine 5 MG TABLET PO SCH (08:23)
[2020-11-07] MEDS: ATORVASTATIN 20 MG TAB PO SCH (08:23)
[2020-11-07] MEDS: METOPROLOL TARTRATE 25 MG TAB PO SCH (08:23)
--- NOTE | 2020-11-07 08:24 | Hospitalist Progress Note ---
Date of Service November 07, 2020 Assessment & Plan (1) Left ventricular apical thrombus: (2) Systolic murmur: (3) Systolic dysfunction: (4) Dizziness: This is a 80-year-old male who presents with apical mural thrombus. 1. Apical mural thrombus: Started on IV heparin. Monitor in the tele floor. Further management as per cardiology. Repeat echocardiogram -LV is normal in size. There is severe septal hypokinesis. There is anterior wall akinesis. There is apical akinesis. EF 45 to 50%. There is a moderate size apical thrombus. The right ventricular systolic function is normal. LA size is normal. RA size is normal. Mild to mo derate aortic regurg. Mild tricuspid regurg. Patient started on warfarin Monitor INR, current 3.7 2. Congestive heart failure, systolic: EF fraction of 45%, new. Initial troponin negative, then 0.017 Ischemic cardiomyopathy? Findings not suggestive of acute process. The patient is euvolemic. Started on metoprolol Consider IGLESIA inhibitor as long as kidney function remains stable and BP permits. Should patient become hypervolemic consider addition of loop diuretic. AM lipid profile - TC 202, LDL 137, TG 105 Workup and optimization of medications as per cardiology. 3. Hypertension: Blood pressure is elevated. Started on Lopressor 25 b.i.d. 4. Dementia: Monitor for delirium. On olanzapine. 5. Chronic kidney disease stage III: Will follow the labs. 6. History of chronic obstructive pulmonary disease: Continue home Combivent. 7. Deep vein thrombosis prophylaxis: INR therapeutic, stop IV heparin DISPOSITION: Closely monitor in tele floor. Expect to discharge home and follow with family doctor. Anticoagulation clinic contacted, patient will need close follow-up PT and OT prior to discharge. Social service to help with discharge planning. Admission and Anticipated Discharge Date Admission Date: November 03, 2020 Subjective Patient seen in follow-up of mural thrombus, dizziness INR 3.7 today, heparin stopped patient's been on warfarin 10 mg daily, will decrease now to 5 mg Currently patient is laying in bed in no acute distress, he is able to answer some questions appropriately however due to dementia not able to answer all my questions Pt seen walking in hallway w/ PT Pt Denies any chest pain shortness of breath, says dizziness is occasional No abdominal pain, nausea or vomiting Patient's daughter Mary updated over the phone Review of Systems Review of Systems: All systems reviewed & are unremarkable except as noted in HPI & below Constitutional: no fever and no chills Respiratory: no cough and no dyspnea Cardiovascular: no chest pain and no palpitations Gastrointestinal: no abdominal pain, no nausea and no vomiting Physical Exam Physical Exam: GENERAL: The patient is of moderate build, not in acute distress. HEENT: No pallor, no icterus. Oral mucosa moist. NECK: No JVD, no neck masses. CARDIOVASCULAR: S1, S2 heard, regular rate and rhythm, +murmur, no gallop. RESPIRATORY: Normal AP diameter. No accessory muscle use. No wheezing, no crackles. ABDOMEN: Soft, bowel sounds present, nontender. No distention. NEURO: Awake and alert but only able to answer some questions appropriately due to dementia, moves extremities EXTREMITIES: No edema, no erythema. Results & Data Results & Data ([facility]) Vital Signs (Past 12 Hours) Vital Signs Temp Pulse Pulse Resp BP Pulse Ox 11/07/20 07:05 36.4 C L 64 18 101/66 93 11/07/20 03:37 36.8 C 88 16 98/59 L 98 11/06/20 23:32 36.6 C 61 16 118/70 93 11/06/20 23:05 61 Laboratory Results 11/07/20 11/07/20 11/07/20 Range/Units 06:17 06:17 06:17 Hgb 13.1 L (14.0-18.0) g/dL Hct 38.7 L (42-52) % PT 33.6 H (9.0-12.0) Seconds INR 3.7 H (0.9-1.1) APTT (21.0-31.0) Seconds PTT Ratio Sodium 141 (136-145) mmol/L Potassium 4.3 (3.5-5.1) mmol/L Chloride 109 H (98-107) mmol/L Carbon Dioxide 23 (21-32) mmol/L Anion Gap 9.0 (3-11) BUN 24 H (7-18) mg/dl Creatinine 1.29 (0.6-1.4) mg/dl Est Cr Clr Drug Dosing 39.6 ml/min Est GFR ( Amer) 60.7 ml/min Est GFR (Non-Af Amer) 52.4 ml/min BUN/Creatinine Ratio 18.7 (10-20) Glucose 98 (70-99) mg/dl Calcium 8.9 (8.5-10.1) mg/dl 11/06/20 11/06/20 Range/Units 19:15 12:45 Hgb (14.0-18.0) g/dL Hct (42-52) % PT (9.0-12.0) Seconds INR (0.9-1.1) APTT 64.4 H* 79.7 H* (21.0-31.0) Seconds PTT Ratio 2.4 3.0 Sodium (136-145) mmol/L Potassium (3.5-5.1) mmol/L Chloride (98-107) mmol/L Carbon Dioxide (21-32) mmol/L Anion Gap (3-11) BUN (7-18) mg/dl Creatinine (0.6-1.4) mg/dl Est Cr Clr Drug Dosing ml/min Est GFR ( Amer) ml/min Est GFR (Non-Af Amer) ml/min BUN/Creatinine Ratio (10-20) Glucose (70-99) mg/dl Calcium (8.5-10.1) mg/dl Medications Administered Current Inpatient Medications Acetaminophen (Acetaminophen 325 Mg Tab) 650 mg PO Q4H PRN PRN Reason: Pain or Fever Stop: 12/04/20 00:46 Albuterol (Albuterol Hfa 8 Gm Inhaler) 1 puffs INH QIDR PRN PRN Reason: Shortness Of Breath Or Wheezing Stop: 12/04/20 06:59 Atorvastatin Calcium (Atorvastatin 20 Mg Tab) 20 mg PO QAM [facility] Stop: 12/05/20 08:59 Last Admin: 11/07/20 08:23 Dose: 20 mg Documented by: Benzonatate (Benzonatate 100 Mg Capsule) 100 mg PO TID PRN PRN Reason: Cough Stop: 12/04/20 00:46 Ipratropium [place] (Ipratropium [place] Hfa Inhaler) 1 puffs INH QIDR PRN PRN Reason: Shortness Of Breath Or Wheezing Stop: 12/04/20 06:59 Metoprolol Tartrate (Metoprolol Tartrate 25 Mg Tab) 25 mg PO BID [facility] Stop: 12/03/20 23:14 Last Admin: 11/07/20 08:23 Dose: 25 mg Documented by: Montelukast Sodium (Montelukast Sodium 10 Mg Tablet) 10 mg PO DAILY [facility] Stop: 12/04/20 08:59 Last Admin: 11/07/20 08:23 Dose: 10 mg Documented by: Nitroglycerin (Nitroglycerin Sl 0.4 Mg/Tab Tab) 0.4 mg SL UD PRN PRN Reason: Chest Pain Stop: 12/04/20 00:46 Olanzapine (Olanzapine 5 Mg Tablet) 5 mg PO DAILY [facility] Stop: 12/04/20 08:59 Last Admin: 11/07/20 08:23 Dose: 5 mg Documented by: Polyethylene Glycol (Polyethylene (Miralax) 17 Gm Pack) 17 gm PO DAILY PRN PRN Reason: Constipation Stop: 12/04/20 00:46 Warfarin Sodium (Warfarin Sod 5 Mg Tab) 5 mg PO DAILY@1600 [facility] Stop: 12/07/20 15:59
--- NOTE | 2020-11-07 12:07 | Cardiology Progress Note ---
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 Mild LV systolic function noted (LVEF ~45% ) without volume overload and with findings of an apical mural thrombus. Heparin infusion discontinued, INR 3.9 today, was 1.9 yesterday. Coumadin on hold Continue medical therapy, change metoprolol tartrate to succinate. Continue atorvastatin. Hold of on ACEI / ARB for now given SBP 100-110 mm Hg with occasional dizziness. Did well with Physical therapy today. Recommend holding coumadin today. Perhaps discharge to home today with close anticoagulation clinic follow up in 24-48 hours. Given lack of anginal symptoms, frailty , and dementia, recommend trial of medical therapy for CAD, rather than proceeding to functional or anatomical assessment (stress or catheterization) at present. Admission and Anticipated Discharge Date Admission Date: November 03, 2020 Subjective Mr Chua is seen in cardiology follow up. Denies complaints. Eathing lunch. Telemetry reveals SR in Review of Systems Review of Systems: All systems reviewed & are unremarkable except as noted in HPI & below Physical Exam Physical Exam: Temp Pulse Resp BP Pulse Ox 36.6 C 63 19 109/70 96 11/07/20 10:53 11/07/20 10:53 11/07/20 10:53 11/07/20 10:53 11/07/20 10:53 Constitutional: Frail in appearance, no acute distress Respiratory: normal respiratory effort, lungs clear to auscultation Cardiovascular: RRR, no murmur, no edema Gastrointestinal (Abdomen): normal bowel sounds, soft, nontender, no hepatosplenomegaly Neurologic: PERRL, EOMI, accommodation nl, no face palsy, no dysarthria Results & Data ([facility]) Vital Signs (Past 12 Hours) Vital Signs Temp Pulse Resp BP Pulse Ox 11/07/20 10:53 36.6 C 63 19 109/70 96 11/07/20 07:05 36.4 C L 64 18 101/66 93 11/07/20 03:37 36.8 C 88 16 98/59 L 98 Laboratory Results Coagulation 11/06/20 11/06/2021 Range/Units 12:45 19:15 06:17 PT 33.6 H (9.0-12.0) Seconds APTT 79.7 H* 64.4 H* (21.0-31.0) Seconds CBC 11/07/20 Range/Units 06:17 Hgb 13.1 L (14.0-18.0) g/dL Hct 38.7 L (42-52) % Comprehensive Metabolic Panel 11/07/20 Range/Units 06:17 Sodium 141 (136-145) mmol/L Potassium 4.3 (3.5-5.1) mmol/L Chloride 109 H (98-107) mmol/L Carbon Dioxide 23 (21-32) mmol/L BUN 24 H (7-18) mg/dl Creatinine 1.29 (0.6-1.4) mg/dl Glucose 98 (70-99) mg/dl Calcium 8.9 (8.5-10.1) mg/dl Intake and Output 11/06/20 11/07/20 11/07/20 22:59 06:59 14:59 Intake Total 231.466 / 981.700 287.184 / 981.700 20.8 / 20.8 Balance 231.466 / 731.700 287.184 / 731.700 20.8 / 20.8 Intake: IV 111.466 / 391.700 167.184 / 391.700 20.8 / 20.8 Heparin Sodium/Dextrose 25,000 111.466 / 391.700 167.184 / 391.700 20.8 / 20.8 units In 500 ml @ 800 UNITS/HR 16 mls/hr IV .Q24H [facility] Rx#: [id number] Oral 120 / 590 120 / 590 Other: # Unmeasured Voids 1 1 Weight 60.3 kg Weight Measurement Method Built in [facility]
--- NOTE | 2020-11-07 12:21 | Discharge Summary ---
Date of Service November 07, 2020 Admission HPI Per Admitting Provider This is a 80-year-old male with past medical history significant for COPD, history of pulmonary nodule, history of dementia, history of protein-calorie malnutrition, chronic kidney disease stage IIIA, macular degeneration, progressive vascular leukoencephalopathy, history of visual spatial deficit, aspirin contraindicated because of epistaxis. As per daughter, he had two cauterizations of the nose in the ER in the past. Quit smoking 2 years ago. Lives with his daughter. Ambulates without any support. Appetite is okay. Comes here because outpatient echo showed mural thrombus and EF of 45%. The patient was having dizziness on and off for last 2 weeks. He went to see the family doctor because of question of murmur, Echo was done, the results showing EF of 45% and anterior septum and inferior septum are hypokinetic in the mid level. There is a moderate sized 0.9 cm apical thrombus and the patient was advised to come to the hospital. Denies any chest pain or shortness of breath. Has some nausea, no cough, no fever, no chills, no headache. He is blind in the left eye. No earache, no runny nose, no sore throat, no dysphagia, no abdominal pain. Normal bowel and bladder movements. Denies any blood in the stools or black stools. Denies any hematuria, no burning micturition, no swelling in the legs. Currently resting comfortably and hemodynamically stable. The patient's daughter is in the room. Admission Exam Per Admitting Provider GENERAL: The patient is of moderate build, not in acute distress. VITAL SIGNS: Temperature 36.8, pulse 67, respiratory rate 24, blood pressure 179/76, oxygen 99% on room air. HEENT: No pallor, no icterus. Oral mucosa moist. NECK: No JVD, no neck masses. CARDIOVASCULAR: S1, S2 heard, regular rate and rhythm, no murmur, no gallop. RESPIRATORY SYSTEM: Normal AP diameter. No accessory muscle use. No wheezing, no crackles. ABDOMEN: Soft, bowel sounds present, nontender. No distention. CENTRAL NERVOUS SYSTEM: Cranial nerves II-XII grossly intact, nonfocal. EXTREMITIES: No edema, no erythema. Principal Diagnosis Apical mural thrombus Discharge Exam GENERAL: The patient is of moderate build, not in acute distress. HEENT: No pallor, no icterus. Oral mucosa moist. NECK: No JVD, no neck masses. CARDIOVASCULAR: S1, S2 heard, regular rate and rhythm, +murmur, no gallop. RESPIRATORY: Normal AP diameter. No accessory muscle use. No wheezing, no crackles. ABDOMEN: Soft, bowel sounds present, nontender. No distention. NEURO: Awake and alert but only able to answer some questions appropriately due to dementia, moves extremities EXTREMITIES: No edema, no erythema. Discharge Data Allergies Allergy/AdvReac Type Severity Reaction Status Date / Time aspirin AdvReac Unknown Verified 11/03/20 20:39 mirtazapine [From Remeron] AdvReac Unknown Verified 11/03/20 20:39 Consultations 11/03/20 20:27 ED Decision to Admit Stat 11/04/20 08:00 Consult Cardiology Routine Hospital Course (1) Left ventricular apical thrombus: (2) Systolic murmur: (3) Systolic dysfunction: (4) Dizziness: This is a 80-year-old male who presents with apical mural thrombus. 1. Apical mural thrombus: Started on IV heparin. Monitor in the tele floor. Further management as per cardiology. Repeat echocardiogram -LV is normal in size. There is severe septal hypokinesis. There is anterior wall akinesis. There is apical akinesis. EF 45 to 50%. There is a moderate size apical thrombus. The right ventricular systolic function is normal. LA size is normal. RA size is normal. Mild to moderate aortic regurg. Mild tricuspid regurg. Patient started on warfarin Monitor INR, current 3.7 2. Congestive heart failure, systolic: EF fraction of 45%, new. Initial troponin negative, then 0.017 Ischemic cardiomyopathy? Findings not suggestive of acute process. The patient is euvolemic. Started on metoprolol- wll DC on metoprolol succinate 25 twice daily Consider IGLESIA inhibitor as long as kidney function remains stable and BP permits. Should patient become hypervolemic consider addition of loop diuretic. AM lipid profile - TC 202, LDL 137, TG 105 Started on atorvastatin Workup and optimization of medications as per cardiology. 3. Hypertension: Blood pressure is elevated. Started on metoprolol 25 b.i.d. 4. Dementia: Monitor for delirium. On olanzapine. 5. Chronic kidney disease stage III: Will follow the labs. 6. History of chronic obstructive pulmonary disease: Continue home Combivent. 7. Deep vein thrombosis prophylaxis: INR therapeutic, stop IV heparin DISPOSITION: Closely monitor in tele floor. Expect to discharge home and follow with family doctor. Anticoagulation clinic contacted, patient will need close follow-up, current INR 3.7 (hold warfarin today) PT and OT prior to discharge. Social service to help with discharge planning. Total Time Total Time Spent Total Time Spent (In Minutes): 35 Total Time Includes: Examination of the Patient, Discharge Planning, Medication Reconciliation and Communication With Other Providers Discharge Plan Discharge Items Patient Disposition: Home - Self-Care Reason For Visit: ILLNESS Discharge Diagnosis: Apical mural thrombus Activity: Per Instructions section Non-emergency contact: Primary Care Provider and Unemployment Insurance Director Call non-emergency contact if: you have any medication questions and your symptoms worsen Follow-up/Referrals: Roscoe Jon MD [Outside Practitioners] - (Date & Time 11/11/2020 11:20 AM Provider Mele Blake DO [facility] ) Diet: Heart Healthy Addtl Attending Provider Instructions: Follow up with your primary care doctor, the appointment was scheduled for you for November 11. You will also need to follow-up closely with anticoagulation clinic (the clinic that manages your blood thinner warfarin). You will need more frequent blood work to check your INR level in the beginning, then you will be checked less frequently. Do not take any warfarin today (11/07). Also take metoprolol and atorvastatin as prescribed. Start taking these medications tomorrow (11/08/20). You will need to follow up with your physical therapy instructor, you will be contacted about the appointment. Pending Studies at Discharge: No Stand-Alone Forms: My [facility] [place], Smoking Cessation Medications and DC Order Prescriptions: New warfarin 5 mg Tablet 5 mg PO DAILY@1600 Qty: 30 RF: 0 atorvastatin 20 mg Tablet 20 mg PO QAM Qty: 30 RF: 0 metoprolol succinate 25 mg tablet extended release 24 hr 25 mg PO BID Qty: 60 RF: 0 Continued olanzapine 5 mg tablet 5 mg PO DAILY RF: 0 benzonatate 100 mg capsule 100 mg PO TID PRN (Reason: Cough) RF: 0 montelukast 10 mg tablet 10 mg PO DAILY RF: 0 Combivent Respimat 20-100 mcg/actuation mist 1 puff INHALATION QID RF: 0 Discharge Orders: Discharge Order (Routine); Ordered 11/07/20 Ordered By: Luis Skelton Admission Data Admit Date/Time: 11/03/20 23:02 Attending Provider: Luis Skelton Admit Provider: Patrick [facility] Primary Care Provider: PCP,NO Other Providers: Patrick [facility] ; Ki Valero ; Giovani Caballero ; Ángel Mendez ; Julio Alba ; Kevyn Mcleod ; Tom Carrillo ; Kristie Perry ; Sophie Chery ; Marimar Sepulveda ; Chuckie Schmitt
[2020-11-07] MEDS ORDERED: WARFARIN SOD 5 MG TAB PO SCH (16:00)
== END 2020-11-07 14:15 | disposition home or self-care (01) | DRG 303 ==
LOC: ED 18:52 → 2S 23:02

== ENCOUNTER 2021-04-04 14:34 | Inpatient (IN) ==
[2021-04-04] MEDS ORDERED: dexAMETHasone**PF** 10 MG/ML VIAL IV ONE (14:49)
[2021-04-04] MEDS ORDERED: ALBUT/IPRATROP 3MG/0.5MG NEB 3 ML VIAL INH STA (14:49)
--- NOTE | 2021-04-04 14:59 | Emergency Department Note ---
Impression & Plan Weakness, Diarrhea, Hypoxia ED Provider Note INFORMANT: Patient ED PROVIDER(S): Fernando Oliveira MD CHIEF COMPLAINT: Weakness and diarrhea PLAN: Disposition: Admitted Condition: Good Outpatient prescription management: none Referral: None MEDICAL DECISION MAKING: Patient presented to the emergency department and there was significant concern about possible Covid. He was isolated. He was hydrated. The patient had a chest x-ray performed was concerning for Covid. He had a mild elevation of his troponin. CBC and chemistry panel was unremarkable except for dehydration. ECG did not show any acute ischemic findings. Nonspecific changes. Patient was given IV Decadron and a DuoNeb. He was doing well with supplemental oxygen. He was hydrated. Patient was also given Tylenol. Further management in the hospital will be necessary. Consultation was made with the hospitalist service. Triage Nursing notes reviewed and agree them. Vital Signs: reviewed and remarkable for fever Differential diagnosis: Infection, dehydration, metabolic abnormality, hypo/hyperglycemia, electrolyte disturbance, anemia, hypoxia, cardiac sources, intracerebral event, toxicologic, neurologic, as well as other pathologies. Diagnostics interpreted by me: ECG: Twelve-lead ECG reveals normal sinus rhythm at 86 bpm. Anteroseptal Q wave present. Nonspecific ST. No ST elevation. Normal axis. Cardiac Monitoring: Cardiac monitoring ordered by me: The patient was placed on continuous cardiac monitoring and observed. It revealed a normal sinus rhythm at 66 beats per minute without ectopy or evidence of dysrhythmia. Imaging studies: Chest x-ray concerning for right sided infiltrates. I refer you to the EMR for further details. HPI: The patient is a 81 year old male who presents to the Emergency Room with complaints of weakness. This started about 4 days ago and is worsening. The patient also notes the following associated symptoms, diarrhea, feverish, mild difficulty breathing. The patient has taken no medication for relieving factors. Patient lives with his daughter who tested positive for Covid yesterday. Patient is not vaccinated against Covid. Current pain is rated as 0/10. EMS was summoned. Patient was found to be hypoxic and was mildly hypotensive. He responded to a fluid bolus. Pt denies LOC, headache, chills, diaphoresis, visual changes, neck pain, chest pain, nausea, vomiting, abdominal pain, back pain, melena, hematochezia, urinary symptoms, numbness, lymphade nopathy, rash, or other complaints. ROS: See above HPI for pertinent positives & negatives. A total of 10 systems reviewed and were otherwise negative. PAST MEDICAL HISTORY:See Below , COPD PAST SURGICAL HISTORY:See Below, FAMILY HISTORY:See Below SOCIAL HISTORY:See Below, lives with daughter. Former smoker. HOME MEDICATIONS:See Below ALLERGIES:See Below VITALS:See Below PHYSICAL EXAMINATION: GENERAL: Awake, fatigued appearing, in no distress HENT: Normocephalic, atraumatic. Oropharynx unremarkable. EYES: Normal conjunctiva. Sclera non-icteric. NECK: Inspection normal. Non-tender. Supple. No nuchal rigidity. FROM. No masses. RESPIRATORY: Coarse breath sounds bilaterally. No wheezes. No rales. Normal respiratory effort. CARDIAC: Borderline tachycardic rate. Normal rhythm. No murmurs. No rubs. Extremities warm and well perfused. Pulses equal. No JVD. GI: Soft, non-distended. No tenderness to palpation. No rebound or guarding. No masses. RECTAL: Deferred. MUSCULOSKELETAL: Atraumatic. Chest examination reveals no tenderness. The back is symmetrical on inspection without obvious abnormality. There is no CVA tenderness to palpation. No joint edema. LOWER EXTREMITIES: Calves are equal size bilaterally and non-tender. No edema. No discoloration. NEURO: Normal sensorium. Generally weak but no focal sensory or motor deficits noted. SKIN: No rash or jaundice noted. CRITICAL CARE: I have personally spent greater than 35 minutes of critical care time in the direct management of this patient. This includes bedside care, interpretation of diagnostic studies, and testing, discussion with consultants, patient, and other required patient management activities. These minutes are in excess of all separately billable procedures. Fernando Oliveira MD Past Med/Surg History Medical History Chronic systolic (congestive) heart failure CKD (chronic kidney disease) stage 3, GFR 30-59 ml/min COPD (chronic obstructive pulmonary disease) Coronary artery disease involving [place] heart without angina pectoris Former smoker Hyperlipidemia Left ventricular apical thrombus Vascular dementia Surgical History History of appendectomy History of carotid endarterectomy History of hernia repair Family History Mother Diabetes Hypertension Father Throat cancer Brother Throat cancer Other Stroke Social History Smoking Status: Former smoker Tobacco Type: Cigarettes Hx Alcohol Use: No Hx Substance Use: No Preferred Language: Ch[place] Communication Ability: Effective 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: No Beliefs That Will Affect Care: None marital status: / Current Living Situation: Family Feels Safe at Home: Yes Assistive Devices: None Allergies Allergies Allergy/AdvReac Type Severity Reaction Status Date / Time aspirin AdvReac Unknown Verified 04/04/21 15:26 mirtazapine [From Remeron] AdvReac Unknown Verified 04/04/21 15:26 Home Meds Home Medications Medication Instructions Recorded Confirmed atorvastatin 20 mg tablet 20 mg PO QAM 04/04/21 04/04/21 trazodone 50 mg tablet 50 mg PO HS 04/04/21 04/04/21 warfarin 5 mg tablet 5 mg PO UD 04/04/21 04/04/21 Previous Rx's Medication Instructions Recorded metoprolol succinate 25 mg 25 mg PO BID #60 tab 11/07/20 tablet,extended release 24 hr Results & Data (ED) Vital Signs Vital Signs - 24 hr 04/04/21 14:41 04/04/21 14:50 04/04/21 15:00 Temperature 38.0 C H Temperature Source Oral Pulse Rate 88 89 84 Pulse Rate [Apical] Pulse Rate from SpO2 Sensor 85 85 Respiratory Rate 19 22 22 Respiratory Effort / Characteristics Blood Pressure 168/99 H 168/99 H Blood Pressure Mean 122 122 Pulse Oximetry 96 95 Oxygen Delivery Method Nasal Cannula Nasal Cannula Oxygen Flow Rate 4 4 Sepsis Recent Fever Within 48 Hours No Sepsis New/Unexplained Change in Mental Status N/A Sepsis Action Taken by Nursing No Action Required 04/04/21 15:09 04/04/21 15:10 04/04/21 15:20 Temperature Temperature Source Pulse Rate 86 90 Pulse Rate [Apical] 88 Pulse Rate from SpO2 Sensor 84 88 Respiratory Rate 23 Respiratory Effort / Characteristics Spontaneous Blood Pressure Blood Pressure Mean Pulse Oximetry 97 95 91 Oxygen Delivery Method Nasal Cannula Nasal Cannula Nasal Cannula Oxygen Flow Rate 5 4 4 Sepsis Recent Fever Within 48 Hours Sepsis New/Unexplained Change in Mental Status Sepsis Action Taken by Nursing 04/04/21 15:30 04/04/21 15:33 04/04/21 15:40 Temperature Temperature Source Pulse Rate 93 H 84 Pulse Rate [Apical] Pulse Rate from SpO2 Sensor 78 Respiratory Rate 20 21 Respiratory Effort / Characteristics Blood Pressure Blood Pressure Mean Pulse Oximetry 95 94 Oxygen Delivery Method Nasal Cannula Nasal Cannula Oxygen Flow Rate 4 4 Sepsis Recent Fever Within 48 Hours Sepsis New/Unexplained Change in Mental Status Sepsis Action Taken by Nursing 04/04/21 15:50 04/04/21 16:00 04/04/21 16:10 Temperature Temperature Source Pulse Rate 79 74 73 Pulse Rate [Apical] Pulse Rate from SpO2 Sensor 80 74 74 Respiratory Rate 20 19 19 Respiratory Effort / Characteristics Blood Pressure Blood Pressure Mean Pulse Oximetry 95 96 95 Oxygen Delivery Method Nasal Cannula Nasal Cannula Nasal Cannula Oxygen Flow Rate 4 4 4 Sepsis Recent Fever Within 48 Hours Sepsis New/Unexplained Change in Mental Status Sepsis Action Taken by Nursing 04/04/21 16:20 04/04/21 16:30 04/04/21 16:40 Temperature Temperature Source Pulse Rate 75 71 71 Pulse Rate [Apical] Pulse Rate from SpO2 Sensor 75 62 71 Respiratory Rate 16 16 18 Respiratory Effort / Characteristics Blood Pressure 100/55 L Blood Pressure Mean 70 Pulse Oximetry 95 96 96 Oxygen Delivery Method Nasal Cannula Nasal Cannula Oxygen Flow Rate 4 4 Sepsis Recent Fever Within 48 Hours Sepsis New/Unexplained Change in Mental Status Sepsis Action Taken by Nursing 04/04/21 16:50 04/04/21 17:00 04/04/21 17:10 Temperature Temperature Source Pulse Rate 72 71 74 Pulse Rate [Apical] Pulse Rate from SpO2 Sensor 70 65 72 Respiratory Rate 18 15 17 Respiratory Effort / Characteristics Blood Pressure Blood Pressure Mean Pulse Oximetry 96 97 95 Oxygen Delivery Method Oxygen Flow Rate Sepsis Recent Fever Within 48 Hours Sepsis New/Unexplained Change in Mental Status Sepsis Action Taken by Nursing 04/04/21 17:20 Temperature Temperature Source Pulse Rate 73 Pulse Rate [Apical] Pulse Rate from SpO2 Sensor 72 Respiratory Rate 21 Respiratory Effort / Characteristics Blood Pressure Blood Pressure Mean Pulse Oximetry 96 Oxygen Delivery Method Oxygen Flow Rate Sepsis Recent Fever Within 48 Hours Sepsis New/Unexplained Change in Mental Status Sepsis Action Taken by Nursing Laboratory Data Result diagrams: 04/04/21 15:08 04/04/21 15:08 Lab Results 04/04/21 04/04/21 04/04/21 Range/Units 15:08 15:08 15:09 WBC 4.29 L (4.8-10.8) K/uL RBC 4.33 L (4.7-6.1) M/uL Hgb 13.1 L (14.0-18.0) g/dL Hct 38.7 L (42-52) % MCV 89.4 (80-100) fL MCH 30.3 (25-34) pg MCHC 33.9 (32-36) g/dL RDW Std Deviation 45.1 (36.4-46.3) fL RDW Coeff of Filippo 13.6 (11.5-14.5) % Plt Count 142 (130-400) K/uL MPV 10.4 (7.4-10.4) fL Immature Gran % (Auto) 0.0 % Neut % (Auto) 76.2 % Lymph % (Auto) 15.2 % [place] % (Auto) 8.6 % Eos % (Auto) 0.0 % Baso % (Auto) 0.0 % Neut # (Auto) 3.27 (1.4-6.5) K/uL Lymph # (Auto) 0.65 L (1.2-3.4) K/uL [place] # (Auto) 0.37 (0.11-0.59) K/uL Eos # (Auto) 0.00 (0-0.5) K/uL Baso # (Auto) 0.00 (0-0.2) K/uL Immature Gran # (Auto) 0.00 (0.00-0.02) K/uL PT 81.7 H (9.0-12.0) Seconds INR 9.7 H* (0.9-1.1) Sodium 138 (136-145) mmol/L Potassium 4.0 (3.5-5.1) mmol/L Chloride 107 (98-107) mmol/L Carbon Dioxide 23 (21-32) mmol/L Anion Gap 8.0 (3-11) BUN 46 H (7-18) mg/dl Creatinine 1.86 H (0.6-1.4) mg/dl Est Cr Clr Drug Dosing 28.9 ml/min Est GFR ( Amer) 38.7 ml/min Est GFR (Non-Af Amer) 33.4 ml/min BUN/Creatinine Ratio 24.5 H (10-20) Glucose 98 (70-99) mg/dl Calcium 7.8 L (8.5-10.1) mg/dl Magnesium 2.2 (1.8-2.4) mg/dl Total Bilirubin 0.7 (0.2-1) mg/dl AST 110 H (15-37) U/L ALT 75 (12-78) U/L Alkaline Phosphatase 87 (45-117) U/L Troponin I 0.152 H* (0-0.045) ng/ml NT-Pro-B Natriuret Pep 1647 (0-1800) pg/ml Total Protein 6.5 (6.4-8.2) gm/dl Albumin 2.9 L (3.4-5.0) gm/dl Globulin 3.6 (2.5-4.0) gm/dl Albumin/Globulin Ratio 0.8 L (0.9-2) COVID-19 Eval Order SARS-CoV-2 (PCR) (Negative) 04/04/21 04/04/21 Range/Units 15:24 15:24 WBC (4.8-10.8) K/uL RBC (4.7-6.1) M/uL Hgb (14.0-18.0) g/dL Hct (42-52) % MCV (80-100) fL MCH (25-34) pg MCHC (32-36) g/dL RDW Std Deviation (36.4-46.3) fL RDW Coeff of Filippo (11.5-14.5) % Plt Count (130-400) K/uL MPV (7.4-10.4) fL Immature Gran % (Auto) % Neut % (Auto) % Lymph % (Auto) % [place] % (Auto) % Eos % (Auto) % Baso % (Auto) % Neut # (Auto) (1.4-6.5) K/uL Lymph # (Auto) (1.2-3.4) K/uL [place] # (Auto) (0.11-0.59) K/uL Eos # (Auto) (0-0.5) K/uL Baso # (Auto) (0-0.2) K/uL Immature Gran # (Auto) (0.00-0.02) K/uL PT (9.0-12.0) Seconds INR (0.9-1.1) Sodium (136-145) mmol/L Potassium (3.5-5.1) mmol/L Chloride (98-107) mmol/L Carbon Dioxide (21-32) mmol/L Anion Gap (3-11) BUN (7-18) mg/dl Creatinine (0.6-1.4) mg/dl Est Cr Clr Drug Dosing ml/min Est GFR ( Amer) ml/min Est GFR (Non-Af Amer) ml/min BUN/Creatinine Ratio (10-20) Glucose (70-99) mg/dl Calcium (8.5-10.1) mg/dl Magnesium (1.8-2.4) mg/dl Total Bilirubin (0.2-1) mg/dl AST (15-37) U/L ALT (12-78) U/L Alkaline Phosphatase (45-117) U/L Troponin I (0-0.045) ng/ml NT-Pro-B Natriuret Pep (0-1800) pg/ml Total Protein (6.4-8.2) gm/dl Albumin (3.4-5.0) gm/dl Globulin (2.5-4.0) gm/dl Albumin/Globulin Ratio (0.9-2) COVID-19 Eval Order Covid19 at [facility] SARS-CoV-2 (PCR) POSITIVE A* (Negative) Administered Medications Sodium Chloride (Nss 1000ml) 1,000 mls @ 50 mls/hr IV .Q20H ROLY Stop: 04/06/21 09:59 Last Admin: 04/04/21 21:57 Dose: 50 mls/hr Documented by: [id number] Metoprolol Succinate (Metoprolol Succ 25mg Ext Rel Tab) 25 mg PO BID ROLY Stop: 05/04/21 21:04 Last Admin: 04/04/21 21:58 Dose: 25 mg Documented by: [id number] Sodium Chloride (Sodium Chloride 0.9% 10ml Flush) 30 ml IV Q24H ROLY Stop: 04/08/21 21:06 Last Admin: 04/04/21 21:58 Dose: 30 ml Documented by: [id number] Trazodone HCl (Trazodone Hcl 50 Mg Tab) 50 mg PO HS ROLY Stop: 05/04/21 21:04 Last Admin: 04/04/21 21:58 Dose: 50 mg Documented by: [id number] Discontinued Medications Acetaminophen (Acetaminophen 500 Mg Tab) 1,000 mg PO NOW STA Stop: 04/04/21 15:02 Last Admin: 04/04/21 15:13 Dose: 1,000 mg Documented by: [id number] Albuterol (Albut/Ipratrop 3mg/0.5mg Neb 3 Ml Vial) 3 ml INH NOW STA Stop: 04/04/21 14:50 Last Admin: 04/04/21 15:09 Dose: 3 ml Documented by: [id number] Dexamethasone Sodium Phosphate (DexamethasonePf 10 Mg/Ml Vial) 6 mg IV NOW ONE Stop: 04/04/21 14:50 Last Admin: 04/04/21 15:14 Dose: 6 mg Documented by: [id number] Remdesivir 200 mg/ Sodium (Chloride) 250 mls @ 125 mls/hr IV ONE STA; Protocol Stop: 04/04/21 19:47 Last Infusion: 04/04/21 21:57 Dose: 0 mls/hr Documented by: [id number] Admin: 04/04/21 19:09 Dose: 125 mls/hr Documented by: [id number] Imaging Data Radiologist's Impression: Chest X-Ray 04/04/21 14:49 SINGLE VIEW CHEST CLINICAL HISTORY: Dyspnea. FINDINGS: An AP, portable, upright chest radiograph is compared to study dated 11/03/2020. The examination is degraded by portable technique and patient rotation. The heart is enlarged noting atherosclerotic calcification of the thoracic aorta. The pulmonary vasculature is noncongested. Enlargement of the central pulmonary arteries suggests pulmonary artery hypertension. Emphysema and chronic interstitial thickening is similar to previous. Asymmetric airspace opacities are suggested throughout the right lung. No large pleural effusion or pneumothorax is seen. The skeletal structures are osteopenic. There are numerous healed right-sided rib fractures. Arthritic change is seen in the shoulders. Superior subluxation of the humeral heads suggest bilateral chronic rotator cuff injury. IMPRESSION: 1. Cardiomegaly and emphysema. There is no radiographic evidence of congestive failure. 2. Asymmetric airspace opacities are suggested in the right lung. Correlate clinically for evidence of an infectious/inflammatory pneumonitis. Radiographic follow-up to resolution is recommended. ACT 112: Negative or not required by law. Electronically signed by: Con Hinton M.D. 04/04/2021 3:35 PM Discharge Plan Visit Data Chief Complaint: Diarrhea Stated Complaint: diarrhea ED Provider: Fernando Oliveira Discharge Problem: Weakness, Diarrhea, Hypoxia Patient Disposition: Admitted As Inpatient Discharge Instructions Interventions: ED Discharge Assessment Last Done: 04/04/21 20:30
[2021-04-04] MEDS ORDERED: ACETAMINOPHEN 500 MG TAB PO STA (15:01)
[2021-04-04 15:16] LABS: Hematocrit (blood only) 38.7 % (42-52); Hemoglobin 13.1 g/dL (14.0-18.0); Lymphocytes # (auto) 0.65 K/uL (1.2-3.4); Lymphocytes % (auto) 15.2 %; Mean Corpuscular Hemoglobin 30.3 pg (25-34); Mean Corpuscular Hgb Conc 33.9 g/dL (32-36); Mean Corpuscular Volume 89.4 fL (80-100); Mean Platelet Volume 10.4 fL (7.4-10.4); Monocytes # (auto) 0.37 K/uL (0.11-0.59); Monocytes % (auto) 8.6 %; Neutrophils # (auto) 3.27 K/uL (1.4-6.5); Neutrophils % (auto) 76.2 %; Platelet Count 142 K/uL (130-400); RDW Coefficient of Variation 13.6 % (11.5-14.5); RDW Standard Deviation 45.1 fL (36.4-46.3); Red Blood Count 4.33 M/uL (4.7-6.1); White Blood Count 4.29 K/uL (4.8-10.8)
--- NOTE | 2021-04-04 15:36 | XRay Report ---
SINGLE VIEW CHEST CLINICAL HISTORY: Dyspnea. FINDINGS: An AP, portable, upright chest radiograph is compared to study dated 11/03/2020. The examina tion is degraded by portable technique and patient rotation. The heart is enlarged noting atheroscler otic calcification of the thoracic aorta. The pulmonary vasculature is noncongested. Enlargement of t he central pulmonary arteries suggests pulmonary artery hypertension. Emphysema and chronic interstit ial thickening is similar to previous. Asymmetric airspace opacities are suggested throughout the rig ht lung. No large pleural effusion or pneumothorax is seen. The skeletal structures are osteopenic. T here are numerous healed right-sided rib fractures. Arthritic change is seen in the shoulders. Superi or subluxation of the humeral heads suggest bilateral chronic rotator cuff injury. IMPRESSION: 1. Cardiomegaly and emphysema. There is no radiographic evidence of congestive failure. 2. Asymmetric airspace opacities are suggested in the right lung. Correlate clinically for evidence o f an infectious/inflammatory pneumonitis. Radiographic follow-up to resolution is recommended. ACT 112: Negative or not required by law. Electronically signed by: Con Hinton M.D. 04/04/2021 3:35 PM
[2021-04-04 15:43] LABS: Albumin Level 2.9 gm/dl (3.4-5.0); BUN Creatinine Ratio 24.5 (10-20); Calcium 7.8 mg/dl (8.5-10.1); Creatinine Clr Calc Pharmacy 28.9 ml/min; Est GFR (African American) 38.7 ml/min; Est GFR (Non-African American) 33.4 ml/min; Magnesium 2.2 mg/dl (1.8-2.4)
[2021-04-04 16:07] LABS: Albumin Globulin Ratio 0.8 (0.9-2); Bilirubin,Total 0.7 mg/dl (0.2-1); Globulin 3.6 gm/dl (2.5-4.0); Total Protein 6.5 gm/dl (6.4-8.2); Troponin I 0.152 ng/ml (0-0.045)
[2021-04-04] MEDS ORDERED: REMDESIVIR 200 MG in SODIUM CHLORIDE 0.9% 210 ML IV STA (17:48)
[2021-04-04] MEDS ORDERED: SODIUM CHLORIDE 0.9% 1000ML 1,000 ML IV SCH (18:00)
--- NOTE | 2021-04-04 18:06 | History & Physical Report ---
Date of Service April 04, 2021 Assessment & Plan (1) COVID-19: (2) Hypoxia: (3) Acute kidney injury superimposed on CKD: (4) Elevated troponin: (5) COPD (chronic obstructive pulmonary disease): (6) Vascular dementia: (7) Hyperlipidemia: (8) Left ventricular apical thrombus: (9) Coronary artery disease involving [place] heart without angina pectoris: Plan: Pt presenting with clinical picture consistent with COVID-19 infection - known exposure (daughter whom he lives with is also positive), unvaccinated. Test in ED confirms infection. Troponin also found to be elevated without acute EKG changes at present in the setting of known chronic ischemic heart disease - likely related to increased demand from hypoxia and hypovolemia. - Admit to PCU - Trend troponin and repeat EKG in AM - Continue dexamethasone started in the ED - Continue supplemental O2 for hypoxia - Will give single dose of remdesivir and re-evaluate labs in the AM due to JAIMIE on CKD - if labs okay in AM, then consider continuing the course - Continue chronic anticoagulation, check INR daily - PT/OT evals due to weakness, fall precautions - Heart healthy diet - Labs in AM - Continue other home meds as appropriate - Gentle IVF at 50 ml/hr x 2 liters total then re-evaluate Pt seen and reviewed with attending physician, Dr. Burrows. Plan of care discussed and as outlined above. Granddaughter updated at the bedside - she left when COVID test back positive. All questions answered. Code status discussed with patient and his family. Code Status: DNR/DNI DVT prophylaxis: on chronic anticoagulation Ching Saeed PA-C History of Present Illness Chief Complaint: weakness and lethargy Primary Care Provider: Dr. Roscoe Jon This is an 81 y/o male with a PMH of COPD, chronic ischemic heart disease, apical mural thrombus, chronic anticoagulation, dementia, CKD 3a, macular degeneration, and chronic systolic CHF who presented to the ED today via EMS with lethargy and weakness. History obtained from patient, his [facility] chart, notes from his daughter, and from his granddaughter at the bedside. Apparently pt developed diarrhea and chills on Saturday (four days ago) followed by subjective fever, diminished appetite, cough, and mild dyspnea. Today, his daughter noted him to be more lethargic so she called 911. Pt lives with his daughter who started feeling ill on Saturday, was tested for COVID on Saturday, results coming back positive yesterday. Additionally, his family next door who they see regularly has COVID. Pt is not vaccinated for COVID. He does not require oxygen at baseline. He has underlying dementia - his granddaughter reports that his mental status is within baseline today. Pt has had ongoing brittney rrhea but denies nausea, vomiting, chest pain, or GONZALEZ. He was dizzy over the past 1-2 days. Allergies Allergy/AdvReac Type Severity Reaction Status Date / Time aspirin AdvReac Unknown Verified 04/04/21 15:26 mirtazapine [From Remeron] AdvReac Unknown Verified 04/04/21 15:26 Home Medications Medication Instructions Recorded Confirmed Type metoprolol succinate 25 mg 25 mg PO BID #60 tab 11/07/20 04/04/21 Rx tablet,extended release 24 hr atorvastatin 20 mg tablet 20 mg PO QAM 04/04/21 04/04/21 History trazodone 50 mg tablet 50 mg PO HS 04/04/21 04/04/21 History warfarin 5 mg tablet 5 mg PO UD 04/04/21 04/04/21 History Past Med/Surg History Medical History Chronic systolic (congestive) heart failure CKD (chronic kidney disease) stage 3, GFR 30-59 ml/min COPD (chronic obstructive pulmonary disease) Coronary artery disease involving [place] heart without angina pectoris Former smoker Hyperlipidemia Left ventricular apical thrombus Vascular dementia Surgical History History of appendectomy History of carotid endarterectomy History of hernia repair Family History Mother Diabetes Hypertension Father Throat cancer Brother Throat cancer Other Stroke Social History Smoking Status: Former smoker Tobacco Type: Cigarettes Hx Alcohol Use: No Hx Substance Use: No Preferred Language: Maltese Communication Ability: Effective 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 Beliefs That Will Affect Care: None marital status: / Current Living Situation: Family Feels Safe at Home: Yes Assistive Devices: None Review of Systems Review of Systems: All systems reviewed & are unremarkable except as noted in HPI & below Constitutional: + fever, + chills, + fatigue, + weakness and + anorexia Ear, Nose, Mouth, Throat: no nasal congestion, no nasal discharge and no sore throat Respiratory: + cough and + dyspnea; no hemoptysis Cardiovascular: + lightheadedness; no chest pain, no palpitations, no syncope and no edema Gastrointestinal: + bloating and + diarrhea/loose stools; no abdominal pain, no nausea, no vomiting and no blood in stools Genitourinary: no dysuria or no hematuria Musculoskeletal: + muscle weakness; no back pain and no neck pain Integumentary: no rash and no skin ulcer Neurologic: + generalized weakness and + dizziness; no paresthesia and no headache(s) Physical Exam Constitutional: + thin; no acute distress Eyes: + anicteric sclerae Neck: trachea midline Respiratory: no respiratory distress and no labored breathing Auscultation: + diminished lung sounds (coarse throughout); no rhonchi and no wheezes Cardiovascular: Rate/Rhythm: regular rate and regular rhythm Vessels: dorsalis pedis pulses present and radial pulses present Extremities: no calf tenderness and no pedal edema Gastrointestinal (Abdomen): Inspection/Auscultation: + abdomen distended (mild, softly) and normal bowel sounds Percussion/Palpation: + abdomen tender (right abdomen) and abdomen soft Musculoskeletal: Head/Neck/Chest: normocephalic, head atraumatic and neck sup ple Skin: no rashes and no jaundice Neurologic: moves all extremities and + confused (slightly confused - oriented x 2 (person and place)); no focal motor deficits Results & Data Results & [facility] ([facility]) Vital Signs (Past 12 Hours) Vital Signs Temp Pulse Pulse Resp BP Pulse Ox 04/04/21 16:30 71 16 96 04/04/21 16:20 75 16 100/55 L 95 04/04/21 16:10 73 19 95 04/04/21 16:00 74 19 96 04/04/21 15:50 79 20 95 04/04/21 15:40 84 21 94 04/04/21 15:33 95 04/04/21 15:30 93 H 20 04/04/21 15:20 90 91 04/04/21 15:10 86 95 04/04/21 15:09 88 23 97 11/09/21 15:00 84 22 95 04/04/21 14:50 38.0 C H 89 22 168/99 H 96 04/04/21 14:41 88 19 168/99 H Laboratory Results Laboratory Results - last 24 hr 04/04/21 04/04/21 04/04/21 15:08 15:08 15:24 WBC 4.29 L RBC 4.33 L Hgb 13.1 L Hct 38.7 L MCV 89.4 MCH 30.3 MCHC 33.9 RDW Std Deviation 45.1 RDW Coeff of Filippo 13.6 Plt Count 142 MPV 10.4 Immature Gran % (Auto) 0.0 Neut % (Auto) 76.2 Lymph % (Auto) 15.2 Rabun % (Auto) 8.6 Eos % (Auto) 0.0 Baso % (Auto) 0.0 Neut # (Auto) 3.27 Lymph # (Auto) 0.65 L Rabun # (Auto) 0.37 Eos # (Auto) 0.00 Baso # (Auto) 0.00 Immature Gran # (Auto) 0.00 Sodium 138 Potassium 4.0 Chloride 107 Carbon Dioxide 23 Anion Gap 8.0 BUN 46 H Creatinine 1.86 H Est Cr Clr Drug Dosing 28.9 Est GFR ( Amer) 38.7 Est GFR (Non-Af Amer) 33.4 BUN/Creatinine Ratio 24.5 H Glucose 98 Calcium 7.8 L Magnesium 2.2 Total Bilirubin 0.7 AST 110 H ALT 75 Alkaline Phosphatase 87 Troponin I 0.152 H* NT-Pro-B Natriuret Pep 1647 Total Protein 6.5 Albumin 2.9 L Globulin 3.6 Albumin/Globulin Ratio 0.8 L COVID-19 Eval Order Covid19 at [facility] SARS-CoV-2 (PCR) 04/04/21 15:24 WBC RBC Hgb Hct MCV MCH MCHC RDW Std Deviation RDW Coeff of Filippo Plt Count MPV Immature Gran % (Auto) Neut % (Auto) Lymph % (Auto) Rabun % (Auto) Eos % (Auto) Baso % (Auto) Neut # (Auto) Lymph # (Auto) Rabun # (Auto) Eos # (Auto) Baso # (Auto) Immature Gran # (Auto) Sodium Potassium Chloride Carbon Dioxide Anion Gap BUN Creatinine Est Cr Clr Drug Dosing Est GFR ( Amer) Est GFR (Non-Af Amer) BUN/Creatinine Ratio Glucose Calcium Magnesium Total Bilirubin AST ALT Alkaline Phosphatase Troponin I NT-Pro-B Natriuret Pep Total Protein Albumin Globulin Albumin/Globulin Ratio COVID-19 Eval Order SARS-CoV-2 (PCR) POSITIVE A* Diagnostic Findings Chest X-ray 04/04/21 - IMPRESSION: 1. Cardiomegaly and emphysema. There is no radiographic evidence of congestive failure. 2. Asymmetric airspace opacities are suggested in the right lung. Correlate clinically for evidence of an infectious/inflammatory pneumonitis. Radiographic follow-up to resolution is recommended. Medications Administered Discontinued Medications Acetaminophen (Acetaminophen 500 Mg Tab) 1,000 mg PO NOW STA Stop: 04/04/21 15:02 Last Admin: 04/04/21 15:13 Dose: 1,000 mg Documented by: [id number] Albuterol (Albut/Ipratrop 3mg/0.5mg Neb 3 Ml Vial) 3 ml INH NOW STA Stop: 04/04/21 14:50 Last Admin: 04/04/21 15:09 Dose: 3 ml Documented by: [id number] Dexamethasone Sodium Phosphate (DexamethasonePf 10 Mg/Ml Vial) 6 mg IV NOW ONE Stop: 04/04/21 14:50 Last Admin: 04/04/21 15:14 Dose: 6 mg Documented by: [id number] Code Status & VTE Plan VTE Prophylaxis Plan VTE Prophylaxis will be ordered: Yes Supervising Physician Co-Signing Physician Notes 81 y/o male with a PMH of stable COPD (former smoker), chronic ischemic heart disease, apical mural thrombus on coumadin, chronic anticoagulation, dementia, CKD 3a, macular degeneration, and chronic systolic CHF presented 04/04 to our ED with lethargy and weakness. 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 Patient turned Covid positive in the ED. Patient also had JAIMIE over CKD. Mild troponin elevation, likely secondary to JAIMIE component. Trend troponin, if continues to uptrend, consider cardiology consult. EKG with no acute ST or T changes. For JAIMIE over CKD, encourage p.o. intake, will put him on gentle hydration [October 2020 ECHO EF 45 to 50%]. For Covid, patient started on dexamethasone. Will give 1 dose of remdesivir. Follow-up with GI for tomorrow for continuation of rest of the doses of remdesivir. Upon examination: GENERAL: Mildly confused, AOx2. NAD, on 5L. Generally ill looking, cachectic. HEENT: No pallor, no icterus. Pupils equal, round and reactive to light. Oral mucosa moist. NECK: No JVD, no neck masses. HEART: S1 and S2 heard. Regular rate and rhythm. No murmur, no gallop. RESPIRATORY SYSTEM: Normal AP diameter. No accessory muscle use. No wheezing, no crackles. Decreased breath sounds bibasilar. ABDOMEN: Soft, bowel sounds present, nontender, no distention. CENTRAL NERVOUS SYSTEM: No facial droop. Speech is clear. Obeys simple commands. Moves extremities. EXTREMITIES: No edema, no erythema seen. I have seen and examined the patient and have discussed the case with the provider above. I agree with the assessment and plan as stated.
[2021-04-04] MEDS ORDERED: WARFARIN SOD 5 MG TAB PO SCH (21:05)
[2021-04-04] MEDS: SODIUM CHLORIDE 0.9% 10ML FLUSH IV SCH (21:58)
[2021-04-04] MEDS: METOPROLOL SUCC 25MG EXT REL TAB PO SCH (21:58)
[2021-04-04] MEDS: traZODone HCL 50 MG TAB PO SCH (21:58)
[2021-04-04 22:03] LABS: Prothrombin Time 81.7 Seconds (9.0-12.0)
[2021-04-04 22:12] LABS: INR 9.7 (0.9-1.1)
[2021-04-05] MEDS ORDERED: METOPROLOL TARTRATE 25 MG TAB PO STA (01:11)
[2021-04-05] MEDS ORDERED: METOPROLOL TARTRATE 1 MG/ML VIAL IV STA (01:14)
[2021-04-05] MEDS ORDERED: PHYTONADIONE 5 MG TAB PO STA (01:17)
[2021-04-05 01:56] LABS: Hemoglobin 13.2 g/dL (14.0-18.0); Mean Corpuscular Hemoglobin 30.5 pg (25-34); Mean Corpuscular Hgb Conc 33.8 g/dL (32-36); Mean Corpuscular Volume 90.1 fL (80-100); Mean Platelet Volume 11.3 fL (7.4-10.4); Platelet Count 164 K/uL (130-400); RDW Coefficient of Variation 13.7 % (11.5-14.5); RDW Standard Deviation 45.5 fL (36.4-46.3); Red Blood Count 4.33 M/uL (4.7-6.1); White Blood Count 6.86 K/uL (4.8-10.8)
[2021-04-05 02:08] LABS: Base Excess ABG -2.9 mEq/L (-9-1.8); HCO3 ABG 20 mmol/L (19-24); Oxygen Saturation ABG 86.4 % (90-95); PCO2 ABG 30 mmHg (35-46); PO2 ABG 50 mmHg (80-95); pH ABG 7.45 (7.35-7.45)
[2021-04-05 02:13] LABS: Allen Test POS (Pos)
[2021-04-05 02:14] LABS: Albumin Level 2.7 gm/dl (3.4-5.0); Creatinine Clr Calc Pharmacy 27.2 ml/min; Est GFR (Non-African American) 34.5 ml/min; Magnesium 2.2 mg/dl (1.8-2.4); Potassium 4.1 mmol/L (3.5-5.1)
[2021-04-05 02:20] LABS: Prothrombin Time > 90.0 Seconds (9.0-12.0)
[2021-04-05 02:24] LABS: Albumin Globulin Ratio 0.7 (0.9-2); Bilirubin,Total 0.6 mg/dl (0.2-1); Globulin 3.8 gm/dl (2.5-4.0); Total Protein 6.5 gm/dl (6.4-8.2); Troponin I 0.135 ng/ml (0-0.045)
[2021-04-05 02:25] LABS: INR > 10.7 (0.9-1.1)
[2021-04-05] MEDS ORDERED: SODIUM CHLORIDE 0.9% 1000ML 1,000 ML IV ONE (02:27)
[2021-04-05 02:57] LABS: Echinocytes 1+; Immature Granulocytes # (auto) 0.01 K/uL (0.00-0.02); Immature Granulocytes % (auto) 0.1 %; Lymphocytes # (auto) 0.32 K/uL (1.2-3.4); Lymphocytes % (auto) 4.7 %; Monocytes # (auto) 0.35 K/uL (0.11-0.59); Monocytes % (auto) 5.1 %; Neutrophils # (auto) 6.18 K/uL (1.4-6.5); Neutrophils % (auto) 90.1 %
[2021-04-05 06:55] LABS: Appearance Urine Clear (Clear); Bacteria Urine Automated Negative (Negative); Bilirubin Urine Negative (Negative); Blood Urine 2+ (Negative); Color Urine Yellow; Epithelial Cell Urine Auto >30 /lpf (0-5); Glucose Urine UA Negative (Negative); Ketones Urine Negative (Negative); Leukocyte Esterase Urine Negative (Negative); Nitrite Urine Negative (Negative); Protein Urine 2+ (Negative); Urobilinogen Urine Negative (Negative)
--- NOTE | 2021-04-05 07:28 | CT Scan Report ---
CT head/brain wo con CLINICAL HISTORY: ams Technique: Contiguous axial CT images of the head were acquired from the base of the skull to the mary lyssa without intravenous contrast administration. Images were viewed in brain, subdural and [facility]. Automated dose lowering techniques and/or adjustment according to patient size were utilized for this exam. Comparison: Comparison is made to CT head 08/14/2015 Findings: Areas of decreased attenuation are present in the periventricular and subcortical white matter bilate rally consistent with small vessel ischemic disease. Generalized cerebral atrophy with commensurate e nlargement of the ventricles, sulci, and cisterns is also present. There is no acute intracranial hem orrhage or evidence of acute territorial infarction. No shift of the midline structures, mass effect, or extra-axial abnormalities are shown. Atherosclerotic calcifications are present in the intracran ial segments of the internal carotid arteries. Redemonstration of nonvisualization of the anterior co rpus callosum which may represent partial loc or focal encephalomalacia. Scattered air-fluid levels are seen in the right maxillary sinus, posterior ethmoid and spinal sinuse s. The orbits appear normal. There are no acute fractures of the calvaria or scalp swelling. Impression: No acute abnormalities. 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 Sinus disease. ACT 112: Negative or not required by law. Electronically signed by: Wilian Sanchez M.D. 04/05/2021 7:27 AM
[2021-04-05 07:31] LABS: Sperm Urine Present (None Prsent)
[2021-04-05] MEDS: ATORVASTATIN 20 MG TAB PO SCH (10:35)
[2021-04-05] MEDS: dexAMETHasone 6 MG in SYRINGE 0 ML IV SCH (10:35)
[2021-04-05] MEDS: METOPROLOL SUCC 25MG EXT REL TAB PO SCH ×2 (10:35→21:11)
--- NOTE | 2021-04-05 13:25 | Electrocardiogram Report ---
Test Reason : Blood Pressure : / mmHG Vent. Rate : 086 BPM Atrial Rate : 086 BPM P-R Int : 134 ms QRS Dur : 078 ms QT Int : 368 ms P-R-T Axes : 063 -29 062 degrees QTc Int : 440 ms Poor data quality, interpretation may be adversely affected Normal sinus rhythm Low voltage QRS Cannot rule out Anteroseptal infarct (cited on or before 03-NOV-2020) Abnormal ECG When compared with ECG of 03-NOV-2020 19:51, Questionable change in initial forces of Anteroseptal leads Non-specific change in ST segment in Inferior leads ST now depressed in Lateral leads QT has lengthened Confirmed by Jake Christianson ([id number]) on 04/05/2021 1:25:10 PM Referred By: REFERRED SELF Confirmed By:Jake Christianson
--- NOTE | 2021-04-05 13:51 | Electrocardiogram Report ---
Test Reason : Blood Pressure : / mmHG Vent. Rate : 087 BPM Atrial Rate : 087 BPM P-R Int : 154 ms QRS Dur : 076 ms QT Int : 348 ms P-R-T Axes : 074 -15 061 degrees QTc Int : 418 ms Normal sinus rhythm Cannot rule out Anteroseptal infarct (cited on or before 03-NOV-2020) Abnormal ECG When compared with ECG of 04-APR-2021 15:17, (unconfirmed) ST no longer depressed in Anterior leads Confirmed by Jake Christianson ([id number]) on 04/05/2021 1:50:37 PM Referred By: REFERRED SELF Confirmed By:Jake Christianson
--- NOTE | 2021-04-05 19:14 | Hospitalist Progress Note ---
Date of Service April 05, 2021 Assessment & Plan (1) Pneumonia due to COVID-19 virus: Plan: Hypoxic, known family exposure. Cont dexamethasone. One dose remdesivir given last night, however, will not continue with this in setting of JAIMIE. Cont oxygen supplementation, currently requiring 5LPM. (2) Hypoxia: Plan: / #1, per plan above. (3) Acute kidney injury superimposed on CKD: Plan: He has received approximately 2.5L of fluid since admission. Will hold on any further IV fluid, cont to encourage PO intake and trend BMP in am. (4) Elevated troponin: Plan: Likely related to demand ischemia in setting of EF 45%, CAD and known apical thrombus in setting of acute illness lasting for one week prior to arrival. No evidence of ACS at this time. (5) COPD (chronic obstructive pulmonary disease): Plan: Chronic, stable, no wheezing. (6) Vascular dementia: Plan: Confirmed with daughter who states that he was confused at home. High risk for delirium with ongoing hypoxia, illness, hospitalization and steroids. (7) Left ventricular apical thrombus: Plan: Supratherapeutic INR, warfarin held and INR reversed with vitamin K. Trend INR in am. Currently no overt signs of bleeding. (8) Coronary artery disease involving [place] heart without angina pectoris: Plan: chronic, appears stable. Cont medical management. (9) Supratherapeutic INR: Plan: INR > 10, reversed wtih vitamin K. (10) DVT prophylaxis: Plan: warfarin on hold in setting of supratherapeutic INR. DNR/DNI Dispo-uncertain at this time. Pending improvement in oxygen needs. I spoke with his daughter, Mary, and updated her on his status and the plan. All questions were answered to her satisfaction. Gabriela Paredes DO [facility]ist Admission and Anticipated Discharge Date Admission Date: April 04, 2021 Subjective 81 yo M presents with covid pneumonia. He reports being sick for approximately one week. He is hypoxic requiring 5LPM oxygen supplementation. Recent diarrhea, poor appetite at home. Doing "ok" today. Denies pain. +fatigue. Review of Systems Review of Systems: All systems were reviewed and negative except as indicated in HPI above. Physical Exam Physical Exam: CONSTITUTIONAL: WNWD, vitals as above, generally well- appearing, NAD EYES: normal conjunctivae, no scleral icterus ENT: external ear and nose normal NECK: trachea midline RESPIRATORY: coarse rhonchi throughout, no rales or wheezes, normal respiratory effort CARDIOVASCULAR: regular rate and rhythm, S1 and 2 heard without murmurs, gallops or rubs, no JVD, no peripheral edema CHEST: inspection of chest was normal GASTROINTESTINAL: soft, nontender, ND, no guarding MUSCULOSKELETAL: strength 5/5 throughout, head is normocephalic and atraumatic SKIN: warm and dry NEUROLOGIC: CN 2-12 grossly intact, normal cognition, normal speech, PSYCHIATRIC: alert cooperative and answering questions appropriately Results & Data Results & Data ([facility]) Vital Signs (Past 12 Hours) Vital Signs Temp Pulse Resp BP BP Pulse Ox Pulse Ox 04/05/21 15:24 37.4 C 74 17 99/61 L 95 04/05/21 14:15 90 04/05/21 12:10 37.5 C 78 20 102/81 92 04/05/21 10:30 89 124/91 04/05/21 07:52 38.1 C H 85 23 99/58 L 93 Pulse Ox Pulse Ox 04/05/21 15:24 04/05/21 14:15 92 84 L 04/05/21 12:10 04/05/21 10:30 04/05/21 07:52 Laboratory Results Short CBC 04/05/21 Range/Units 01:36 WBC 6.86 (4.8-10.8) K/uL Hgb 13.2 L (14.0-18.0) g/dL Hct 39.0 L (42-52) % Plt Count 164 (130-400) K/uL BMP 04/05/21 01:36 Sodium 138 Potassium 4.1 Chloride 108 H Carbon Dioxide 24 BUN 45 H Creatinine 1.81 H Glucose 170 H Calcium 8.0 L Cardiac Enzymes 04/04/21 04/05/21 Range/Units 21:50 01:36 Troponin I 0.158 H* 0.135 H* (0-0.045) ng/ml Liver Function 04/05/21 Range/Units 01:36 Total Bilirubin 0.6 (0.2-1) mg/dl AST 98 H (15-37) U/L ALT 71 (12-78) U/L Alkaline Phosphatase 83 (45-117) U/L Albumin 2.7 L (3.4-5.0) gm/dl Urine 04/05/21 Range/Units 05:40 Urine Color Yellow Urine Appearance Clear (Clear) Urine pH 5.0 (4.5-7.5) Ur Specific [place] 1.020 (1.000-1.030) Urine Protein 2+ H (Negative) Urine Glucose (UA) Negative (Negative) Diagnostic Findings Head CT 04/04/21 23:09 CT head/brain wo con CLINICAL HISTORY: ams Technique: Contiguous axial CT images of the head were acquired from the base of the skull to the vertex without intravenous contrast administration. Images were viewed in brain, subdural and bone windows. Automated dose lowering techniques and/or adjustment according to patient size were utilized for this exam. Comparison: Comparison is made to CT head 08/14/2015 Findings: Areas of decreased attenuation are present in the periventricular and subcortical white matter bilaterally consistent with small vessel ischemic disease. Generalized cerebral atrophy with commensurate enlargement of the ventricles, sulci, and cisterns is also present. There is no acute intracranial hemorrhage or evidence of acute territorial infarction. No shift of the midline structures, mass effect, or extra-axial abnormalities are shown. Atherosclerotic calcifications are present in the intracranial segments of the internal carotid arteries. Redemonstration of nonvisualization of the anterior corpus callosum which may represent partial loc or focal encephalomalacia. Scattered air-fluid levels are seen in the right maxillary sinus, posterior ethmoid and spinal sinuses. The orbits appear normal. There are no acute fractures of the calvaria or scalp swelling. Impression: No acute abnormalities. 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 Sinus disease. ACT 112: Negative or not required by law. Electronically signed by: Wilian Sanchez M.D. 04/05/2021 7:27 AM Medications Administered Current Inpatient Medications Atorvastatin Calcium (Atorvastatin 20 Mg Tab) 20 mg PO QAM ROLY Stop: 05/05/21 08:59 Last Admin: 04/05/21 10:35 Dose: 20 mg Documented by: Dexamethasone 6 mg/ Syringe 1.5 mls @ 1 mls/min IV DAILY ROLY Stop: 04/15/21 08:59 Last Admin: 04/05/21 10:35 Dose: 1 mls/min Documented by: Metoprolol Succinate (Metoprolol Succ 25mg Ext Rel Tab) 25 mg PO BID ROLY Stop: 05/04/21 21:04 Last Admin: 04/05/21 10:35 Dose: 25 mg Documented by: Sodium Chloride (Sodium Chloride 0.9% 10ml Flush) 30 ml IV Q24H ROLY Stop: 04/08/21 21:06 Last Admin: 04/04/21 21:58 Dose: 30 ml Documented by: Trazodone HCl (Trazodone Hcl 50 Mg Tab) 50 mg PO HS ROLY Stop: 05/04/21 21:04 Last Admin: 04/04/21 21:58 Dose: 50 mg Documented by:
[2021-04-05] MEDS: traZODone HCL 50 MG TAB PO SCH (21:11)
[2021-04-05] MEDS: SODIUM CHLORIDE 0.9% 10ML FLUSH IV SCH (21:14)
[2021-04-06 07:27] LABS: Hematocrit (blood only) 40.2 % (42-52); Hemoglobin 13.2 g/dL (14.0-18.0); Mean Corpuscular Hemoglobin 30.2 pg (25-34); Mean Corpuscular Hgb Conc 32.8 g/dL (32-36); Mean Platelet Volume 11.5 fL (7.4-10.4); Platelet Count 199 K/uL (130-400); RDW Coefficient of Variation 14.1 % (11.5-14.5); RDW Standard Deviation 47.7 fL (36.4-46.3); Red Blood Count 4.37 M/uL (4.7-6.1); White Blood Count 10.92 K/uL (4.8-10.8)
[2021-04-06 08:01] LABS: INR 1.6 (0.9-1.1); Prothrombin Time 16.1 Seconds (9.0-12.0)
[2021-04-06 08:07] LABS: BUN Creatinine Ratio 35.4 (10-20); C Reactive Protein 11.6 mg/dl (0-0.29); Calcium 8.6 mg/dl (8.5-10.1); Creatinine Clr Calc Pharmacy 36.4 ml/min; Est GFR (African American) 57.6 ml/min; Est GFR (Non-African American) 49.7 ml/min; Magnesium 2.5 mg/dl (1.8-2.4); Phosphorus 2.9 mg/dl (2.5-4.9); Potassium 4.8 mmol/L (3.5-5.1)
[2021-04-06] MEDS: ATORVASTATIN 20 MG TAB PO SCH (08:17)
[2021-04-06] MEDS: dexAMETHasone 6 MG in SYRINGE 0 ML IV SCH (08:17)
[2021-04-06] MEDS: METOPROLOL SUCC 25MG EXT REL TAB PO SCH ×2 (08:17→23:24)
--- NOTE | 2021-04-06 10:58 | Hospitalist Progress Note ---
Date of Service April 06, 2021 Assessment & Plan (1) Pneumonia due to COVID-19 virus: Plan: Hypoxic, known family exposure. Cont dexamethasone. One dose remdesivir given on admission, however, will not continue with this in setting of JAIMIE. Cont oxygen supplementation, currently requiring 5LPM. (2) Hypoxia: Plan: / #1, per plan above. (3) Acute kidney injury superimposed on CKD: Plan: Creatinine improved. Continue to encourage adequate p.o. hydration. (4) Elevated troponin: Plan: Likely related to demand ischemia in setting of EF 45%, CAD and known apical thrombus in setting of acute illness lasting for one week prior to arrival. No evidence of ACS at this time. (5) COPD (chronic obstructive pulmonary disease): Plan: Chronic, stable, no wheezing. (6) Vascular dementia: Plan: Confirmed with daughter who states that he was confused at home. High risk for delirium with ongoing hypoxia, illness, hospitalization and steroids. (7) Left ventricular apical thrombus: Plan: Supratherapeutic INR, warfarin held and INR reversed with vitamin K. Trend INR in am. Currently no overt signs of bleeding. (8) Coronary artery disease involving [place] heart without angina pectoris: Plan: chronic, appears stable. Cont medical management. (9) Supratherapeutic INR: Plan: INR > 10, reversed wtih vitamin K. (10) DVT prophylaxis: Plan: warfarin on hold in setting of supratherapeutic INR. DNR/DNI Dispo-uncertain at this time. Pending improvement in oxygen needs. Gabriela Paredes DO [facility] Hospitalist Admission and Anticipated Discharge Date Admission Date: April 04, 2021 Subjective 81 yo M presents with covid pneumonia. He reports being sick for approximately one week. Still hypoxic, reports resolution of diarrhea. Reports significant fatigue is his main issue. Denies chest pain, shortness of breath or other issues. Denies any cough. Review of Systems Review of Systems: All systems were reviewed and negative except as indicated in HPI above. Physical Exam Physical Exam: CONSTITUTIONAL: WNWD, vitals as above, generally ill- appearing, NAD EYES: normal conjunctivae, no scleral icterus ENT: external ear and nose normal NECK: trachea midline RESPIRATORY: coarse rhonchi throughout, no rales or wheezes, normal respiratory effort CARDIOVASCULAR: regular rate and rhythm, S1 and 2 heard without murmurs, gallops or rubs, no JVD, no peripheral edema CHEST: inspection of chest was normal GASTROINTESTINAL: soft, nontender, ND, no guarding MUSCULOSKELETAL: strength 5/5 throughout, head is normocephalic and atraumatic SKIN: warm and dry NEUROLOGIC: CN 2-12 grossly intact, normal cognition, normal speech, PSYCHIATRIC: alert cooperative and answering questions appropriately Results & Data Results & Data ([facility]) Vital Signs (Past 12 Hours) Vital Signs Temp Pulse Pulse Resp BP Pulse Ox 04/06/21 07:21 36.9 C 64 17 96/62 L 94 04/06/21 04:06 37.2 C 68 18 95/60 L 93 04/06/21 01:18 72 04/05/21 23:37 37.0 C 77 16 92/63 L 92 Laboratory Results Short CBC 04/06/21 Range/Units 06:32 WBC 10.92 H (4.8-10.8) K/uL Hgb 13.2 L (14.0-18.0) g/dL Hct 40.2 L (42-52) % Plt Count 199 (130-400) K/uL BMP 04/06/21 06:32 Sodium 144 Potassium 4.8 D Chloride 116 H Carbon Dioxide 21 BUN 48 H Creatinine 1.34 D Glucose 137 H Calcium 8.6 Medications Administered Current Inpatient Medications Atorvastatin Calcium (Atorvastatin 20 Mg Tab) 20 mg PO QAM ROLY Stop: 05/05/21 08:59 Last Admin: 04/06/21 08:17 Dose: 20 mg Documented by: Dexamethasone 6 mg/ Syringe 1.5 mls @ 1 mls/min IV DAILY ROLY Stop: 04/15/21 08:59 Last Admin: 04/06/21 08:17 Dose: 1 mls/min Documented by: Metoprolol Succinate (Metoprolol Succ 25mg Ext Rel Tab) 25 mg PO BID ROLY Stop: 05/04/21 21:04 Last Admin: 04/06/21 08:17 Dose: 25 mg Documented by: Sodium Chloride (Sodium Chloride 0.9% 10ml Flush) 30 ml IV Q24H ROLY Stop: 04/08/21 21:06 Last Admin: 04/05/21 21:14 Dose: Not Given Documented by: Trazodone HCl (Trazodone Hcl 50 Mg Tab) 50 mg PO HS ROLY Stop: 05/04/21 21:04 Last Admin: 04/05/21 21:11 Dose: 50 mg Documented by:
[2021-04-06] MEDS: SODIUM CHLORIDE 0.9% 10ML FLUSH IV SCH (23:25)
[2021-04-06] MEDS: traZODone HCL 50 MG TAB PO SCH (23:25)
[2021-04-07 06:26] LABS: INR 1.5 (0.9-1.1); Prothrombin Time 15.1 Seconds (9.0-12.0)
[2021-04-07] MEDS: dexAMETHasone 6 MG in SYRINGE 0 ML IV SCH (10:13)
[2021-04-07] MEDS: METOPROLOL SUCC 25MG EXT REL TAB PO SCH ×2 (10:14→20:40)
[2021-04-07] MEDS: ATORVASTATIN 20 MG TAB PO SCH (10:14)
[2021-04-07] MEDS ORDERED: OPTIRAY 320 100ml IV ONE (16:20)
--- NOTE | 2021-04-07 16:32 | CT Scan Report ---
CT abd pelvis IV con only CLINICAL HISTORY: acute abdominal pain, +covid TECHNIQUE: Helical axial images of the abdomen and pelvis were obtained and displayed. Automated dose lowering techniques and/or adjustment according to patient size were utilized for this exam. This e xam was performed with intravenous contrast. COMPARISON: Comparison is made to CT abdomen and pelvis 04/07/2014 FINDINGS: Exam is limited by patient motion. Lower chest: Scattered groundglass and consolidative opacities are seen alongside cystic interstitia l changes in the lung bases. Liver: Unremarkable. No focal lesions are seen. Gallbladder and biliary tree: No calcified gallstones. Normal caliber wall. No intra- or extrahepatic biliary ductal dilation. Pancreas: Fatty replacement of the pancreas is seen. Spleen: Unremarkable. Adrenals: Unremarkable. Kidneys and ureters: 2.1 cm cyst is seen in the right kidney superior pole. Bladder: Vences catheter is seen. Reproductive organs: Prostatic calcifications are seen which may represent prior hemorrhage or granul omatous disease. Bowel: Diverticulosis is seen without evidence of diverticulitis. Lymph nodes Retroperitoneal: Unremarkable. Mesenteric: Unremarkable. Pelvic: Unremarkable. Peritoneum: Normal Vessels: Atherosclerotic calcifications are seen. Abdominal wall: Unremarkable. Bones: Degenerative changes in the visualized spine. IMPRESSION: 1. No evidence of acute abnormality to explain abdominal pain. 2. Diverticulosis without evidence of diverticulitis. 3. Partially visualized opacities in bilateral lung bases compatible with history of viral pneumonia . ACT 112: Negative or not required by law. Electronically signed by: Wilian Sanchez M.D. 04/07/2021 4:31 PM
[2021-04-07] MEDS: WARFARIN SOD 5 MG TAB PO SCH (17:14)
--- NOTE | 2021-04-07 20:09 | Hospitalist Progress Note ---
Date of Service April 07, 2021 Assessment & Plan (1) Pneumonia due to COVID-19 virus: Plan: Hypoxic, known family exposure. Cont dexamethasone. One dose remdesivir given on admission, however, this was not continued in setting of JAIMIE. Cont oxygen supplementation, notably patient keeps pulling it off his face so nurse has him on a higher amount than he needs. (2) Hypoxia: Plan: 2/ #1, per plan above. (3) Acute kidney injury superimposed on CKD: Plan: Creatinine improved. Continue to encourage adequate p.o. hydration. (4) Acute urinary retention: Plan: Lockhart placed, likely cause of acute abdominal pain. (5) Elevated troponin: Plan: Likely related to demand ischemia in setting of EF 45%, CAD and known apical thrombus in setting of acute illness lasting for one week prior to arrival. No evidence of ACS at this time. (6) COPD (chronic obstructive pulmonary disease): Plan: Chronic, stable, no wheezing. (7) Vascular dementia: Plan: Confirmed with daughter who states that he was confused at home. High risk for delirium with ongoing hypoxia, illness, hospitalization and steroids. (8) Left ventricular apical thrombus: Plan: Supratherapeutic INR, warfarin held and INR reversed with vitamin K. Trend INR in am. Currently no overt signs of bleeding. Will restart coumadin. (9) Coronary artery disease involving [place] heart without angina pectoris: Plan: chronic, appears stable. Cont medical management. (10) Supratherapeutic INR: Plan: INR > 10, reversed wtih vitamin K. (11) DVT prophylaxis: Plan: warfarin on hold in setting of supratherapeutic INR. DNR/DNI Dispo-uncertain at this time. Pending improvement in oxygen needs. Poor prognosis. [facility] and Anticipated Discharge Date Admission Date: April 04, 2021 Subjective 81 yo M presents with covid pneumonia. He reports being sick for approximately one week. Still hypoxic, reports resolution of diarrhea. Reports significant fatigue is his main issue. Denies chest pain, shortness of breath or other issues. Denies any cough. Pain in abdomen but he cannot qualify this. CT a/p performed with no structural cause of pain. Bladder scan revealed evidence of urinary retention and lockhart was placed. Called daughter but she was unavailable. Review of Systems Review of Systems: reports pain generally, otherwise cannot given clear ROS secondary to dementia and acute illness. Physical Exam Physical Exam: CONSTITUTIONAL: WNWD, vitals as above, generally ill- appearing, appears mildly distressed. EYES: normal conjunctivae, no scleral icterus ENT: external ear and nose normal NECK: trachea midline RESPIRATORY: coarse rhonchi throughout, no rales or wheezes, normal respiratory effort CARDIOVASCULAR: regular rate and rhythm, S1 and 2 heard without murmurs, gallops or rubs, no JVD, no peripheral edema CHEST: inspection of chest was normal GASTROINTESTINAL: soft, nontender, ND, no guarding MUSCULOSKELETAL: strength 5/5 throughout, head is normocephalic and atraumatic SKIN: warm and dry NEUROLOGIC: CN 2-12 grossly intact, normal cognition, normal speech, PSYCHIATRIC: alert cooperative and answering questions appropriately Results & Data Results & Data ([facility]) Vital Signs (Past 12 Hours) Vital Signs Temp Pulse Pulse Resp BP Pulse Ox 04/07/21 18:35 67 04/07/21 17:37 22 93 04/07/21 15:35 36.6 C 71 22 101/71 90 04/07/21 11:37 36.6 C 69 20 108/80 94 Diagnostic Findings Abdomen/Pelvis CT 04/07/21 14:35 CT abd pelvis IV con only CLINICAL HISTORY: acute abdominal pain, +covid TECHNIQUE: Helical axial images of the abdomen and pelvis were obtained and displayed. Automated dose lowering techniques and/or adjustment according to patient size were utilized for this exam. This exam was performed with intravenous contrast. COMPARISON: Comparison is made to CT abdomen and pelvis 04/07/2014 FINDINGS: Exam is limited by patient motion. Lower chest: Scattered groundglass and consolidative opacities are seen alongside cystic interstitial changes in the lung bases. Liver: Unremarkable. No focal lesions are seen. Gallbladder and biliary tree: No calcified gallstones. Normal caliber wall. No intra- or extrahepatic biliary ductal dilation. Pancreas: Fatty replacement of the pancreas is seen. Spleen: Unremarkable. Adrenals: Unremarkable. Kidneys and ureters: 2.1 cm cyst is seen in the right kidney superior pole. Bladder: Lockhart catheter is seen. Reproductive organs: Prostatic calcifications are seen which may represent prior hemorrhage or granulomatous disease. Bowel: Diverticulosis is seen without evidence of diverticulitis. Lymph nodes Retroperitoneal: Unremarkable. Mesenteric: Unremarkable. Pelvic: Unremarkable. Peritoneum: Normal Vessels: Atherosclerotic calcifications are seen. Abdominal wall: Unremarkable. Bones: Degenerative changes in the visualized spine. IMPRESSION: 1. No evidence of acute abnormality to explain abdominal pain. 2. Diverticulosis without evidence of diverticulitis. 3. Partially visualized opacities in bilateral lung bases compatible with history of viral pneumonia. ACT 112: Negative or not required by law. Electronically signed by: Wilian Sanchez M.D. 04/07/2021 4:31 PM Medications Administered Current Inpatient Medications Atorvastatin Calcium (Atorvastatin 20 Mg Tab) 20 mg PO QAM ROLY Stop: 05/05/21 08:59 Last Admin: 04/07/21 10:14 Dose: 20 mg Documented by: Dexamethasone 6 mg/ Syringe 1.5 mls @ 1 mls/min IV DAILY ROLY Stop: 04/15/21 08:59 Last Admin: 04/07/21 10:13 Dose: 1 mls/min Documented by: Metoprolol Succinate (Metoprolol Succ 25mg Ext Rel Tab) 25 mg PO BID ROLY Stop: 05/04/21 21:04 Last Admin: 04/07/21 10:14 Dose: 25 mg Documented by: Sodium Chloride (Sodium Chloride 0.9% 10ml Flush) 30 ml IV Q24H ROLY Stop: 04/08/21 21:06 Last Admin: 04/06/21 23:25 Dose: 10 ml Documented by: Trazodone HCl (Trazodone Hcl 50 Mg Tab) 50 mg PO HS ROLY Stop: 05/04/21 21:04 Last Admin: 04/06/21 23:25 Dose: Not Given Documented by: Warfarin Sodium (Warfarin Sod 5 Mg Tab) 5 mg PO DAILY@1600 ROLY Stop: 05/07/21 15:59 Last Admin: 04/07/21 17:14 Dose: 5 mg Documented by:
[2021-04-07] MEDS: traZODone HCL 50 MG TAB PO SCH (20:41)
[2021-04-07] MEDS: SODIUM CHLORIDE 0.9% 10ML FLUSH IV SCH (20:41)
[2021-04-08] MEDS ORDERED: QUEtiapine FUMARATE 25 MG TABLET PO STA (00:56)
[2021-04-08] MEDS ORDERED: HALOPERIDOL LACTATE 5 MG/ML 1 ML VIAL IM STA (03:31)
[2021-04-08] MEDS ORDERED: LORazepam 0.5 MG/1 ML VIAL IV STA (04:54)
[2021-04-08 07:22] LABS: Hematocrit (blood only) 45.7 % (42-52); Hemoglobin 14.9 g/dL (14.0-18.0); Mean Corpuscular Hemoglobin 30.5 pg (25-34); Mean Corpuscular Hgb Conc 32.6 g/dL (32-36); Mean Corpuscular Volume 93.5 fL (80-100); Mean Platelet Volume 11.5 fL (7.4-10.4); Platelet Count 274 K/uL (130-400); RDW Coefficient of Variation 13.7 % (11.5-14.5); RDW Standard Deviation 47.4 fL (36.4-46.3); Red Blood Count 4.89 M/uL (4.7-6.1); White Blood Count 12.31 K/uL (4.8-10.8)
[2021-04-08 07:30] LABS: INR 1.9 (0.9-1.1); Prothrombin Time 18.1 Seconds (9.0-12.0)
[2021-04-08 07:47] LABS: BUN Creatinine Ratio 39.2 (10-20); Calcium 9.6 mg/dl (8.5-10.1); Creatinine Clr Calc Pharmacy 34.5 ml/min; Est GFR (African American) 54.1 ml/min; Est GFR (Non-African American) 46.7 ml/min; Potassium 5.6 mmol/L (3.5-5.1)
[2021-04-08] MEDS: dexAMETHasone 6 MG in SYRINGE 0 ML IV SCH (08:31)
[2021-04-08] MEDS: ATORVASTATIN 20 MG TAB PO SCH (08:34)
[2021-04-08] MEDS: ACETAMINOPHEN 500 MG TAB PO SCH ×3 (08:50→23:53)
[2021-04-08] MEDS: DEXTROSE 5% 1,000 ML IV SCH ×2 (09:08→16:49)
[2021-04-08] MEDS: METOPROLOL SUCC 25MG EXT REL TAB PO SCH ×2 (10:56→20:51)
[2021-04-08] MEDS: CHOLECALCIFEROL 1,000 UNITS 25 MCG TAB PO SCH (10:56)
[2021-04-08] MEDS: ASCORBIC ACID 500 MG TAB PO SCH ×2 (10:56→21:02)
--- NOTE | 2021-04-08 12:22 | Hospitalist Progress Note ---
Date of Service April 08, 2021 Assessment & Plan (1) Pneumonia due to COVID-19 virus: Plan: Hypoxic, known family exposure. Cont dexamethasone. One dose remdesivir given on admission, however, this was not continued in setting of JAIMIE. He is off oxygen at this time, and with ongoing delirium will hold on steroids. (2) Hypoxia: Plan: improved/resolved. (3) Hypernatremia: Plan: Poor PO intake. Sodium 150 this am. Started dextrose--PIV infiltrated this am but it is now running in new site. He is drinking alot of free water which is good. Contributing to delirium. Repeat BMP at 1300. (4) Delirium: Plan: Multifactorial in setting of dementia. Hypernatremia and pain are contributing as well as steroids. Acute urinary retention yesterday with placement of Vences catheter. See plan above to treat these. Cont to reorient as needed. Currently on one to one observation for safety. (5) Pain: Plan: Generalized pain and discomfort still present. Patient is withdrawing to pain generally when touched although also somnolent so the clinical picture is not clear. CK was 400 so will stop home atorvastatin. Cont IVF for now. Trend CK in am. Start scheduled APAP with Tramadol as needed. (6) Acute kidney injury superimposed on CKD: Plan: Creatinine improved. Continue to encourage adequate p.o. hydration. (7) Acute urinary retention: Plan: Vences placed, likely cause of acute abdominal pain. (8) Elevated troponin: Plan: Likely related to demand ischemia in setting of EF 45%, CAD and known apical thrombus in setting of acute illness lasting for one week prior to arrival. No evidence of ACS at this time. (9) COPD (chronic obstructive pulmonary disease): Plan: Chronic, stable, no wheezing. (10) Vascular dementia: Plan: Confirmed with daughter who states that he was confused at home. High risk for delirium with ongoing hypoxia, illness, hospitalization and steroids. (11) Left ventricular apical thrombus: Plan: Supratherapeutic INR, warfarin held and INR reversed with vitamin K. Trend INR in am. Currently no overt signs of bleeding. Will restart coumadin. (12) Coronary artery disease involving [place] heart without angina pectoris: Plan: chronic, appears stable. Cont medical management. (13) Supratherapeutic INR: Plan: INR > 10, reversed wtih vitamin K. (14) DVT prophylaxis: Plan: warfarin on hold in setting of supratherapeutic INR. DNR/DNI Dispo-uncertain at this time. Pending improvement in oxygen needs. Poor prognosis. Gabriela Paredes DO [facility] Hospitalist Admission and Anticipated Discharge Date Admission Date: April 04, 2021 Subjective 81 yo M presents with covid pneumonia. reporting generalized pain today he is confused and agitated and cannot answer questions or give a history he is sleeping nad when aroused from sleep appears to be uncomfortable. On one to one observation Required antipsychotic administration last night Na 150 this am. Per nursing he has drank one full cup of water this am, very thirsty He isn't eating much and no BM CK approx 400 and lipitor was stopped. Dextrose started but IV infiltrated, new IV was placed. Review of Systems Review of Systems: cannot obtain as patient is confused. Physical Exam Physical Exam: CONSTITUTIONAL: WNWD, vitals as above, generally ill- appearing, EYES: normal conjunctivae, no scleral icterus ENT: external ear and nose normal NECK: trachea midline RESPIRATORY: coarse rhonchi throughout, no rales or wheezes, normal respiratory effort CARDIOVASCULAR: regular rate and rhythm, S1 and 2 heard without murmurs, gallops or rubs, no JVD, no peripheral edema CHEST: inspection of chest was normal GASTROINTESTINAL: soft, nontender, ND, no guarding MUSCULOSKELETAL: strength 5/5 throughout, head is normocephalic and atraumatic SKIN: warm and dry NEUROLOGIC: CN 2-12 grossly intact, normal cognition, normal speech, PSYCHIATRIC: alert cooperative and answering questions appropriately Results & Data Results & Data ([facility]) Vital Signs (Past 12 Hours) Vital Signs Temp Pulse Pulse Resp BP BP Pulse Ox 04/08/21 11:55 73 04/08/21 10:10 86 22 120/77 100 04/08/21 07:22 94 H 24 94/51 L 90 04/08/21 05:29 36.6 C 74 16 94/51 L 88 L Laboratory Results Short CBC 04/08/21 Range/Units 06:21 WBC 12.31 H (4.8-10.8) K/uL Hgb 14.9 (14.0-18.0) g/dL Hct 45.7 (42-52) % Plt Count 274 (130-400) K/uL BMP 04/08/21 06:21 Sodium 150 H Potassium 5.6 H D Chloride 120 H Carbon Dioxide 24 BUN 55 H Creatinine 1.41 H Glucose 164 H Calcium 9.6 Cardiac Enzymes 04/08/21 Range/Units 06:21 Total Creatine Kinase 358 H (39-308) U/L Medications Administered Current Inpatient Medications Acetaminophen (Acetaminophen 500 Mg Tab) 1,000 mg PO Q8H [facility] Stop: 05/08/21 08:29 Last Admin: 04/08/21 08:50 Dose: 1,000 mg Documented by: Ascorbic Acid (Ascorbic Acid 500 Mg Tab) 500 mg PO BID ROLY Stop: 05/08/21 08:59 Last Admin: 04/08/21 10:56 Dose: 500 mg Documented by: Atorvastatin Calcium (Atorvastatin 20 Mg Tab) 20 mg PO QAM [facility] Stop: 05/05/21 08:59 Last Admin: 04/08/21 08:34 Dose: 20 mg Documented by: Dexamethasone 6 mg/ Syringe 1.5 mls @ 1 mls/min IV DAILY ROLY Stop: 04/15/21 08:59 Last Admin: 04/08/21 08:31 Dose: 1 mls/min Documented by: Dextrose (D5w) 1,000 mls @ 125 mls/hr IV .Q8H [facility] Stop: 04/09/21 00:29 Last Admin: 04/08/21 09:08 Dose: 125 mls/hr Documented by: Metoprolol Succinate (Metoprolol Succ 25mg Ext Rel Tab) 25 mg PO BID [facility] Stop: 05/04/21 21:04 Last Admin: 04/08/21 10:56 Dose: 25 mg Documented by: Tramadol HCl (Tramadol Hcl 50 Mg Tablet) 50 mg PO Q4H PRN PRN Reason: moderate to severe pain 5-10 Stop: 05/08/21 08:23 Trazodone HCl (Trazodone Hcl 50 Mg Tab) 50 mg PO HS [facility] Stop: 05/04/21 21:04 Last Admin: 04/07/21 20:41 Dose: Not Given Documented by: Vitamin D (Cholecalciferol 1,000 Units 25 Mcg Tab) 1,000 units PO QAM [facility] Stop: 05/08/21 08:59 Last Admin: 04/08/21 10:56 Dose: 1,000 units Documented by: Warfarin Sodium (Warfarin Sod 5 Mg Tab) 5 mg PO DAILY@1600 [facility] Stop: 05/07/21 15:59 Last Admin: 04/07/21 17:14 Dose: 5 mg Documented by:
[2021-04-08] MEDS: traMADol HCL 50 MG TABLET PO PRN (13:15)
[2021-04-08 14:06] LABS: BUN Creatinine Ratio 34.9 (10-20); Calcium 8.8 mg/dl (8.5-10.1); Est GFR (African American) 45.8 ml/min; Est GFR (Non-African American) 39.5 ml/min; Potassium 5.2 mmol/L (3.5-5.1)
[2021-04-08 14:29] LABS: Beta-Hydroxybutyrate 1.02 mg/dl (0.2-2.81)
[2021-04-08] MEDS ORDERED: GLUCOSE 40% GEL 15 GM TUBE PO PRN (14:46)
[2021-04-08] MEDS ORDERED: DEXTROSE 50% 50 ML SYRINGE IV PRN (14:46)
[2021-04-08] MEDS ORDERED: GLUCOSE 10 TABS/TUBE PO PRN (14:46)
[2021-04-08] MEDS ORDERED: CARBOHYDRATES FOR HYPOGLYCEMIA PO PRN (14:46)
[2021-04-08] MEDS ORDERED: GLUCAGON FOR INJ 1 MG VIAL SQ PRN (14:46)
[2021-04-08] MEDS ORDERED: INSULIN GLARGINE SOLOSTAR 100 UNITS/ML 3 ML PEN SC ONE (15:00)
[2021-04-08] MEDS: INSULIN ASPART 100 UNITS/ML 3 ML PEN SC SCH ×2 (16:49→21:44)
[2021-04-08] MEDS: WARFARIN SOD 5 MG TAB PO SCH (16:56)
[2021-04-08] MEDS: traZODone HCL 50 MG TAB PO SCH (21:03)
[2021-04-09] MEDS ORDERED: HALOPERIDOL LACTATE 5 MG/ML 1 ML VIAL IM STA (05:16)
[2021-04-09 07:08] LABS: Basophils # (auto) 0.01 K/uL (0-0.2); Basophils % (auto) 0.1 %; Hemoglobin 13.7 g/dL (14.0-18.0); Immature Granulocytes # (auto) 0.08 K/uL (0.00-0.02); Immature Granulocytes % (auto) 0.5 %; Lymphocytes # (auto) 0.59 K/uL (1.2-3.4); Lymphocytes % (auto) 4.1 %; Mean Corpuscular Hemoglobin 30.5 pg (25-34); Mean Corpuscular Hgb Conc 34.3 g/dL (32-36); Mean Corpuscular Volume 89.1 fL (80-100); Mean Platelet Volume 11.1 fL (7.4-10.4); Monocytes # (auto) 0.81 K/uL (0.11-0.59); Monocytes % (auto) 5.6 %; Neutrophils # (auto) 13.06 K/uL (1.4-6.5); Neutrophils % (auto) 89.7 %; Platelet Count 288 K/uL (130-400); RDW Coefficient of Variation 13.1 % (11.5-14.5); RDW Standard Deviation 43.2 fL (36.4-46.3); Red Blood Count 4.49 M/uL (4.7-6.1); White Blood Count 14.55 K/uL (4.8-10.8)
[2021-04-09 07:16] LABS: Prothrombin Time 27.7 Seconds (9.0-12.0)
[2021-04-09] MEDS: INSULIN ASPART 100 UNITS/ML 3 ML PEN SC SCH ×4 (07:16→21:32)
[2021-04-09 07:39] LABS: BUN Creatinine Ratio 36.2 (10-20); C Reactive Protein 2.41 mg/dl (0-0.29); Calcium 8.6 mg/dl (8.5-10.1); Est GFR (African American) 78.2 ml/min; Est GFR (Non-African American) 67.5 ml/min; Potassium 4.2 mmol/L (3.5-5.1)
[2021-04-09] MEDS: traMADol HCL 50 MG TABLET PO PRN (08:02)
[2021-04-09] MEDS: ACETAMINOPHEN 500 MG TAB PO SCH ×2 (08:02→16:43)
[2021-04-09] MEDS: METOPROLOL SUCC 25MG EXT REL TAB PO SCH ×2 (08:03→21:31)
[2021-04-09] MEDS: ASCORBIC ACID 500 MG TAB PO SCH ×2 (08:03→21:32)
[2021-04-09] MEDS: CHOLECALCIFEROL 1,000 UNITS 25 MCG TAB PO SCH (08:03)
[2021-04-09] MEDS ORDERED: OLANZapine 10 MG/2.1 ML SDV IM STA ×2 (08:43→23:15)
[2021-04-09] MEDS ORDERED: OLANZapine 10 MG/2.1 ML SDV IM ONE (08:48)
--- NOTE | 2021-04-09 15:08 | Hospitalist Progress Note ---
Date of Service April 09, 2021 Assessment & Plan (1) Pneumonia due to COVID-19 virus: Plan: Hypoxic, known family exposure. Decadron on hold in setting of delirium. No remdesivir 2/2 JAIMIE. Min oxygen needs but he does have needs and should be wearing the oxygen. One to one nurse present, cont to reapply the oxygen. Mitts ordered to help. Cont supportive care. (2) Hypoxia: Plan: improved but still present. Cont oxygen supplementation for goal saturation >92%. (3) Hypernatremia: Plan: Resolved after dextrose with Na 142 today. Poor PO intake. (4) Delirium: Plan: Multifactorial in setting of dementia. Still present. Etiology is multifactorial including recent steroids, hyperglycemia, hypernatremia, ?ongoing pain, covid infection and hospitalization with hypoxia. Cont to treat possible underlying contributing factors listed. Reorient PRN, Zyprexa PRN. (5) Pain: Plan: Cannot gauge pain with delirium. Cont scheduled Tylenol as tolerated with Tramadol PRN. (6) Acute kidney injury superimposed on CKD: Plan: Creatinine improved. Continue to encourage adequate p.o. hydration. (7) Acute urinary retention: Plan: Vences placed, likely cause of acute abdominal pain. (8) Elevated troponin: Plan: Likely related to demand ischemia in setting of EF 45%, CAD and known apical thrombus in setting of acute illness lasting for one week prior to arrival. No evidence of ACS at this time. (9) COPD (chronic obstructive pulmonary disease): Plan: Chronic, stable, no wheezing. (10) Vascular dementia: Plan: High risk for delirium with ongoing hypoxia, illness, hospitalization and recent steroids. (11) Left ventricular apical thrombus: Plan: Cont warfarin, trend INR. Currently no overt signs of bleeding. (12) Coronary artery disease involving [place] heart without angina pectoris: Plan: chronic, appears stable. Cont medical management. (13) Supratherapeutic INR: Plan: INR > 10, reversed wtih vitamin K. Restarted warfarin as above. (14) DVT prophylaxis: Plan: warfarin DNR/DNI Dispo-uncertain at this time. Pending improvement in oxygen needs. Poor prognosis. [facility] (15) Malnutrition: Plan: Thin, elderly, not eating well. Start IVF to ensure hydrating while not taking in much PO. Admission and Anticipated Discharge Date Admission Date: April 04, 2021 Subjective 81 yo M presents with covid pneumonia. still moaning with pain this morning but remains delirious and combative haldol given overnight with min effect. Received Zyprexa this morning which helped to calm him removing medical devices and hitting staff members mitts placed as he was taking off his oxygen and saturation was 87% No sleep overnight per nursing staff. He is now calm and sleeping. Review of Systems Review of Systems: cannot obtain as patient is confused. Physical Exam Physical Exam: CONSTITUTIONAL: WNWD, vitals as above, generally ill- appearing, limited exam as patient is confused and combative when awakened. EYES: normal conjunctivae, no scleral icterus ENT: external ear and nose normal NECK: trachea midline RESPIRATORY: clear to auscultation throughout, no rales or wheezes, normal respiratory effort CARDIOVASCULAR: regular rate and rhythm, S1 and 2 heard without murmurs, gallops or rubs, no JVD, no peripheral edema CHEST: inspection of chest was normal GASTROINTESTINAL: soft, nontender, ND, no guarding MUSCULOSKELETAL: strength 5/5 throughout, head is normocephalic and atraumatic SKIN: warm and dry NEUROLOGIC: CN 2-12 grossly intact, normal cognition, normal speech, PSYCHIATRIC: alert cooperative and answering questions appropriately Results & Data Results & Data ([facility]) Vital Signs (Past 12 Hours) Vital Signs Temp Pulse Pulse Pulse Resp BP Pulse Ox 04/09/21 11:30 36.5 C 72 20 132/74 89 L 04/09/21 07:13 36.6 C 89 18 122/72 90 04/09/21 04:00 96 H Laboratory Results Short CBC 04/09/21 Range/Units 06:19 WBC 14.55 H (4.8-10.8) K/uL Hgb 13.7 L (14.0-18.0) g/dL Hct 40.0 L (42-52) % Plt Count 288 (130-400) K/uL BMP 04/09/21 06:19 Sodium 142 Potassium 4.2 D Chloride 110 H Carbon Dioxide 24 BUN 38 H Creatinine 1.04 Glucose 95 Calcium 8.6 Medications Administered Current Inpatient Medications Acetaminophen (Acetaminophen 500 Mg Tab) 1,000 mg PO Q8H ROLY Stop: 05/08/21 08:29 Last Admin: 04/09/21 08:02 Dose: 1,000 mg Documented by: Ascorbic Acid (Ascorbic Acid 500 Mg Tab) 500 mg PO BID ROLY Stop: 05/08/21 08:59 Last Admin: 04/09/21 08:03 Dose: 500 mg Documented by: Atorvastatin Calcium (Atorvastatin 20 Mg Tab) 20 mg PO QAM ROLY Stop: 05/05/21 08:59 Last Admin: 04/08/21 08:34 Dose: 20 mg Documented by: Dextrose (Dextrose 50% 50 Ml Syringe) 25 - 50 ml IV UD PRN; Protocol PRN Reason: Hypoglycemia Protocol Stop: 05/08/21 14:45 Glucagon (Glucagon For Inj 1 Mg Vial) 1 mg SQ UD PRN; Protocol PRN Reason: Hypoglycemia Protocol Stop: 05/08/21 14:45 Glucose (Glucose 10 Tabs/Tube) 4 - 8 tabs PO UD PRN; Protocol PRN Reason: Hypoglycemia Protocol Stop: 05/08/21 14:45 Glucose (Glucose 40% Gel 15 Gm Tube) 15 - 30 gm PO UD PRN; Protocol PRN Reason: Hypoglycemia Protocol Stop: 05/08/21 14:45 Dexamethasone 6 mg/ Syringe 1.5 mls @ 1 mls/min IV DAILY ROLY Stop: 04/15/21 08:59 Last Admin: 04/08/21 08:31 Dose: 1 mls/min Documented by: Insulin Aspart (Insulin Aspart 100 Units/Ml 3 Ml Pen) 0 units SC ACHS ROLY Stop: 05/08/21 16:29 Last Admin: 04/09/21 12:37 Dose: Not Given Documented by: Metoprolol Succinate (Metoprolol Succ 25mg Ext Rel Tab) 25 mg PO BID ROLY Stop: 05/04/21 21:04 Last Admin: 04/09/21 08:03 Dose: 25 mg Documented by: Miscellaneous (Carbohydrates For Hypoglycemia ) 15 - 30 gm PO UD PRN PRN Reason: Hypoglycemia Protocol Stop: 05/08/21 14:45 Tramadol HCl (Tramadol Hcl 50 Mg Tablet) 50 mg PO Q4H PRN PRN Reason: moderate to severe pain 5-10 Stop: 05/08/21 08:23 Last Admin: 04/09/21 08:02 Dose: 50 mg Documented by: Trazodone HCl (Trazodone Hcl 50 Mg Tab) 50 mg PO HS [facility] Stop: 05/04/21 21:04 Last Admin: 04/08/21 21:03 Dose: Not Given Documented by: Vitamin D (Cholecalciferol 1,000 Units 25 Mcg Tab) 1,000 units PO QAM [facility] Stop: 05/08/21 08:59 Last Admin: 04/09/21 08:03 Dose: 1,000 units Documented by: Warfarin Sodium (Warfarin Sod 5 Mg Tab) 5 mg PO DAILY@1600 [facility] Stop: 05/07/21 15:59 Last Admin: 04/08/21 16:56 Dose: 5 mg Documented by:
[2021-04-09] MEDS: D5NSS + 20MEQ KCL 20 MEQ/1,000 ML BAG IV SCH (16:41)
[2021-04-09] MEDS: WARFARIN SOD 5 MG TAB PO SCH (16:43)
[2021-04-10] MEDS: ACETAMINOPHEN 500 MG TAB PO SCH ×2 (00:07→09:48)
[2021-04-10] MEDS: D5NSS + 20MEQ KCL 20 MEQ/1,000 ML BAG IV SCH ×2 (05:59→18:30)
[2021-04-10 06:54] LABS: Estimated Average Glucose 148 mg/dl; Hemoglobin A1C 6.8 % (4.5-5.6)
[2021-04-10 07:57] LABS: Albumin Level 2.4 gm/dl (3.4-5.0); BUN Creatinine Ratio 27.7 (10-20); Calcium 8.6 mg/dl (8.5-10.1); Creatinine Clr Calc Pharmacy 38.2 ml/min; Est GFR (Non-African American) 53.5 ml/min; Magnesium 2.1 mg/dl (1.8-2.4); Potassium 4.8 mmol/L (3.5-5.1)
[2021-04-10 08:10] LABS: Albumin Globulin Ratio 0.6 (0.9-2); Bilirubin,Total 1.1 mg/dl (0.2-1); Globulin 3.8 gm/dl (2.5-4.0); Phosphorus 1.5 mg/dl (2.5-4.9); Total Protein 6.2 gm/dl (6.4-8.2)
[2021-04-10] MEDS ORDERED: SODIUM PHOSPHATE 3 MMOL/1 ML 5 ML VIAL IV ONE (09:25)
[2021-04-10] MEDS ORDERED: SODIUM PHOSPHATE 30 MMOL in SODIUM CHLORIDE 0.9% 500 ML IV ONE (10:00)
[2021-04-10] MEDS: INSULIN ASPART 100 UNITS/ML 3 ML PEN SC SCH ×3 (10:09→16:41)
[2021-04-10] MEDS: METOPROLOL SUCC 25MG EXT REL TAB PO SCH (11:44)
[2021-04-10] MEDS: ASCORBIC ACID 500 MG TAB PO SCH (11:44)
[2021-04-10] MEDS: CHOLECALCIFEROL 1,000 UNITS 25 MCG TAB PO SCH (11:44)
--- NOTE | 2021-04-10 11:57 | Palliative Care Consultation ---
Date of Consultation April 10, 2021 Assessment & Plan (1) Palliative care encounter: Mr. Chua is an 81 year old male who presented to the [facility] with increaed lethargy and weakness after developing diarrhea, fever, and chills with decreased po intake, cough and shortness of breath. Additional PMH includes: COPD, chronic ischemic heart disease, apical thrombus, senile degeneration of the brain, CKD stage III, macular degeneration, and chronic systolic CHF. He was diagnosed with COVID-19 on admission. Pt is not vaccinated for COVID.Palliative Medicine was consulted to discuss overall goals of care. I met with Mr. Chua who had a 1:1 at his bedside. He was disheveled in his bed, did open his eyes to verbal stimuli, but was unable to really converse in a meaningful way. He did have furrowed brow and did grimace with tactile stimulation. I called his daughter Mary at [phone]. Her and I talked at length regarding her father, whom lives with her. She stated that at baseline, he has 'jobs' at home, including walking the dog, feeding the dog, and burning trash in their back yard (under supervision of course). She said he is able to hold conversation and eat independently. She said that she understands that he may not improve from COVID-19. We did discuss both aggressive and conservative measures of his care should he decline. For now, should he decline, she would be comfortable with him aggressive treatment short of intubation. She would be comfortable with him receiving hi-flow and pressors if indicated for now. She does have realistic expectations that if he would worsen and start to require more aggressive treatment that she would not want him to struggle or suffer and would consider a transition to a more conservative approach at that time. Palliative will follow throughout his hospital stay. (2) Altered mental status: At baseline, patient has SDOB, but is able to converse and perform some of his ADL's independently. Did have some agitation and delirium. (3) Weakness: Overall, poor appetite noted over the past month and a half. Progressively weak since. (4) COVID-19: Decadron discontinued due to delirium. Not a candidate for Remdesivir secondary to JAIMIE. Pt on 6LNC and goal saturations 88-90% (5) Agitation: patient with behavioral disturbance while inpatient. Has Zyprexa and Seroquel on board. History of Present Illness Reason for Consultation: Goals of care Requesting Physician: Dr. Paredes Attending Physician: Gabriela Paredes, History of Present Illness Mr. Chua is an 81 year old male who presented to the [facility] with increaed lethargy and weakness after developing diarrhea, fever, and chills with decreased po intake, cough and shortness of breath. Additional PMH includes: COPD, chronic ischemic heart disease, apical thrombus, senile degeneration of the brain, CKD stage III, macular degeneration, and chronic systolic CHF. He was diagnosed with COVID-19 on admission. Pt is not vaccinated for COVID.Palliative Medicine was consulted to discuss overall goals of care. Please see A/P for fur ther details. Thanks for involving Palliative Medicine with this unfortunate individual. Allergies Allergy/AdvReac Type Severity Reaction Status Date / Time aspirin AdvReac Unknown Verified 04/04/21 15:26 mirtazapine [From Remeron] AdvReac Unknown Verified 04/04/21 15:26 Home Medications Medication Instructions Recorded Confirmed Type metoprolol succinate 25 mg 25 mg PO BID #60 tab 11/07/20 04/04/21 Rx tablet,extended release 24 hr atorvastatin 20 mg tablet 20 mg PO QAM 04/04/21 04/04/21 History trazodone 50 mg tablet 50 mg PO HS 04/04/21 04/04/21 History warfarin 5 mg tablet 5 mg PO UD 04/04/21 04/04/21 History Patient History Medical History (Updated 04/10/21 @ 15:57 by ALEXY Orozco) Agitation Altered mental status Chronic systolic (congestive) heart failure CKD (chronic kidney disease) stage 3, GFR 30-59 ml/min COPD (chronic obstructive pulmonary disease) Coronary artery disease involving [place] heart without angina pectoris Former smoker Hyperlipidemia Left ventricular apical thrombus Palliative care encounter Vascular dementia Weakness Surgical History History of appendectomy History of carotid endarterectomy History of hernia repair Family History Mother Diabetes Hypertension Father Throat cancer Brother Throat cancer Other Stroke Social History (Reviewed 04/10/21 @ 15:53 by BIBIANA Orozco Smoking Status: Former smoker Tobacco Type: Cigarettes Hx Alcohol Use: No Hx Substance Use: No Preferred Language: Peruvian Communication Ability: Effective Pest Control Service Technician Required: No Beliefs That Will Affect Care: None marital status: / Current Living Situation: Family Other Information That Helps Us Care for You: No Feels Safe at Home: Yes Safety Concerns: Feels Safe At This Time Assistive Devices: Oxygen - Continuous Review of Systems Review of Systems: [place] System Assessment Scale: by observation: Pain: 05/29 SOB: 05/29 Anxiety: 05/29 Depression: 05/29 Palliative Performance Scale: 30% Physical Exam Constitutional: + ill appearing and + frail appearing ENMT: Mouth: + dry oral mucous membranes Respiratory: + uses accessory muscles and + cough Auscultation: + diminished lung sounds and + rhonchi Cardiovascular: Rate/Rhythm: regular rate and regular rhythm Heart Sounds: normal S1 and normal S2 Extremities: normal capillary refill; no edema Gastrointestinal (Abdomen): Inspection/Auscultation: abdomen normal to inspection Percussion/Palpation: abdomen soft Skin: + ecchymosis and + pallor Psychiatric: Orientation: alert and oriented to person Insight: + poor insight Judgement: + poor judgement Results & Data ([facility]) Vital Signs (Past 12 Hours) Vital Signs Temp Pulse Pulse Pulse Resp BP Pulse Ox 04/10/21 11:39 37.7 C H 89 16 105/75 94 04/10/21 07:12 37.6 C H 102 H 22 102/87 89 L 04/10/21 03:12 37.6 C H 91 H 22 99/66 L 94 04/10/21 02:40 80 92 04/10/21 02:16 93 H 99 04/10/21 00:00 92 H PG Care Time/CCT Total # of Minutes Spent Total Time Spent with Patient: Total time spent is greater than 50% in coordination of care (as documented) at patient's floor/unit and/or counseling patient: 100 minutes with > 50% of that time spent assessing the patient, discussing goals of care with patients daughter, addressing symptom management needs and collaborating with IDT Coding Level of Care Code 21945 Initial Inpt Care Lvl 3 Diagnoses Palliative care encounter Z51.5 Altered mental status R41.82 Weakness R53.1 COVID-19 U07.1 Agitation R45.1 Time Spent (min) 100
[2021-04-10] MEDS: ACETAMINOPHEN 1,000 MG/100 ML VIAL IV PRN (14:30)
--- NOTE | 2021-04-10 15:14 | Hospitalist Progress Note ---
Date of Service April 10, 2021 Assessment & Plan (1) Pneumonia due to COVID-19 virus: Plan: Hypoxic, known family exposure. Decadron on hold in setting of delirium. No remdesivir 2/2 JAIMIE. Min oxygen needs but he does have needs and should be wearing the oxygen. One to one nurse present, cont to reapply the oxygen. Mitts ordered to help. Cont supportive care. (2) Hypoxia: Plan: improved but still present. Cont oxygen supplementation for goal saturation >92%. (3) Hypernatremia: Plan: Resolved after dextrose. Encourage PO hydration as tolerated. (4) Delirium: Plan: Multifactorial in setting of dementia. Still present. Etiology is multifactori al including recent steroids, hyperglycemia, hypernatremia, ?ongoing pain, covid infection and hospitalization with hypoxia. Cont to treat possible underlying contributing factors listed. Reorient PRN, Zyprexa PRN. (5) Pain: Plan: Cannot gauge pain with delirium. Cont scheduled Tylenol as tolerated with Tramadol PRN. Removed lockhart for TOV as this appears to be bothering him. (6) Acute kidney injury superimposed on CKD: Plan: Creatinine improved. Continue to encourage adequate p.o. hydration. (7) Acute urinary retention: Plan: removed lockhart for TOV today. (8) Elevated troponin: Plan: Likely related to demand ischemia in setting of EF 45%, CAD and known apical thrombus in setting of acute illness lasting for one week prior to arrival. No evidence of ACS at this time. (9) COPD (chronic obstructive pulmonary disease): Plan: Chronic, stable, no wheezing. (10) Vascular dementia: Plan: High risk for delirium with ongoing hypoxia, illness, hospitalization and recent steroids. (11) Left ventricular apical thrombus: Plan: Cont warfarin, trend INR. Currently no overt signs of bleeding. (12) Coronary artery disease involving [place] heart without angina pectoris: Plan: chronic, appears stable. Cont medical management. (13) Malnutrition: Plan: Thin, elderly, not eating well. Start IVF to ensure hydrating while not taking in much PO. Catering And Events Manager following. (14) Supratherapeutic INR: Plan: INR > 10, reversed wtih vitamin K. Restarted warfarin as above. (15) DVT prophylaxis: Plan: warfarin DNR/DNI Dispo-uncertain at this time. Pending improvement in oxygen needs. Poor prognosis. Palliative on board and in touch with his daughter. Gabriela Paredes DO [facility] Hospitalist Admission and Anticipated Discharge Date Admission Date: April 04, 2021 Subjective 81 yo M presents with covid pneumonia. delirium with agitation pointing to bladder area Lockhart removed Review of Systems Review of Systems: Couldn't obtain review of systems secondary to delirium. Physical Exam Physical Exam: CONSTITUTIONAL: WNWD, vitals as above, generally ill- appearing, delirium present EYES: normal conjunctivae, no scleral icterus ENT: external ear and nose normal NECK: trachea midline RESPIRATORY: clear to auscultation throughout, no rales or wheezes, normal respiratory effort CARDIOVASCULAR: regular rate and rhythm, S1 and 2 heard without murmurs, gallops or rubs, no JVD, no peripheral edema CHEST: inspection of chest was normal GASTROINTESTINAL: soft, nontender, ND, no guarding MUSCULOSKELETAL: strength 5/5 throughout, head is normocephalic and atraumatic SKIN: warm and dry NEUROLOGIC: CN 2-12 grossly intact, normal cognition, normal speech, PSYCHIATRIC: alert cooperative and answering questions appropriately Results & Data Results & Data ([facility]) Vital Signs (Past 12 Hours) Vital Signs Temp Pulse Pulse Resp BP Pulse Ox 04/10/21 14:59 36.6 C 86 28 H 96/66 L 94 04/10/21 11:39 37.7 C H 89 16 105/75 94 04/10/21 07:12 37.6 C H 102 H 22 102/87 89 L Laboratory Results [facility] 04/10/21 07:06 Sodium 141 Potassium 4.8 Chloride 112 H Carbon Dioxide 24 BUN 35 H Creatinine 1.26 Glucose 142 H Calcium 8.6 Liver Function 04/10/21 Range/Units 07:06 Total Bilirubin 1.1 H (0.2-1) mg/dl AST 38 H (15-37) U/L ALT 46 (12-78) U/L Alkaline Phosphatase 77 (45-117) U/L Albumin 2.4 L (3.4-5.0) gm/dl Medications Administered Current Inpatient Medications Ascorbic Acid (Ascorbic Acid 500 Mg Tab) 500 mg PO BID ROLY Stop: 05/08/21 08:59 Last Admin: 04/10/21 11:44 Dose: Not Given Documented by: Atorvastatin Calcium (Atorvastatin 20 Mg Tab) 20 mg PO QAM ROLY Stop: 05/05/21 08:59 Last Admin: 04/08/21 08:34 Dose: 20 mg Documented by: Dextrose (Dextrose 50% 50 Ml Syringe) 25 - 50 ml IV UD PRN; Protocol PRN Reason: Hypoglycemia Protocol Stop: 05/08/21 14:45 Glucagon (Glucagon For Inj 1 Mg Vial) 1 mg SQ UD PRN; Protocol PRN Reason: Hypoglycemia Protocol Stop: 05/08/21 14:45 Glucose (Glucose 10 Tabs/Tube) 4 - 8 tabs PO UD PRN; Protocol PRN Reason: Hypoglycemia Protocol Stop: 05/08/21 14:45 Glucose (Glucose 40% Gel 15 Gm Tube) 15 - 30 gm PO UD PRN; Protocol PRN Reason: Hypoglycemia Protocol Stop: 05/08/21 14:45 Dexamethasone 6 mg/ Syringe 1.5 mls @ 1 mls/min IV DAILY ROLY Stop: 04/15/21 08:59 Last Admin: 04/08/21 08:31 Dose: 1 mls/min Documented by: Potassium Chloride/Dextrose/Sod Cl (D5nss + 20meq Kcl) 20 meq in 1,000 mls @ 75 mls/hr IV .[id number] ROLY Stop: 05/09/21 15:29 Last Infusion: 04/10/21 14:55 Dose: 75 mls/hr Documented by: Acetaminophen (Ofirmev) 1,000 mg in 100 mls @ 400 mls/hr IV Q8H PRN PRN Reason: pain/fever Stop: 04/13/21 14:03 Last Infusion: 04/10/21 14:55 Dose: Infused Documented by: Insulin Aspart (Insulin Aspart 100 Units/Ml 3 Ml Pen) 0 units SC ACHS ROLY Stop: 05/08/21 16:29 Last Admin: 04/10/21 11:50 Dose: Not Given Documented by: Metoprolol Succinate (Metoprolol Succ 25mg Ext Rel Tab) 25 mg PO BID ROLY Stop: 05/04/21 21:04 Last Admin: 04/10/21 11:44 Dose: Not Given Documented by: Miscellaneous (Carbohydrates For Hypoglycemia ) 15 - 30 gm PO UD PRN PRN Reason: Hypoglycemia Protocol Stop: 05/08/21 14:45 Tramadol HCl (Tramadol Hcl 50 Mg Tablet) 50 mg PO Q4H PRN PRN Reason: moderate to severe pain 5-10 Stop: 05/08/21 08:23 Last Admin: 04/09/21 08:02 Dose: 50 mg Documented by: Trazodone HCl (Trazodone Hcl 50 Mg Tab) 50 mg PO [facility] Stop: 05/04/21 21:04 Last Admin: 04/08/21 21:03 Dose: Not Given Documented by: Vitamin D (Cholecalciferol 1,000 Units 25 Mcg Tab) 1,000 units PO [facility] Stop: 05/08/21 08:59 Last Admin: 04/10/21 11:44 Dose: Not Given Documented by: Warfarin Sodium (Warfarin Sod 5 Mg Tab) 5 mg PO DAILY@1600 [facility] Stop: 05/07/21 15:59 Last Admin: 04/09/21 16:43 Dose: 5 mg Documented by:
[2021-04-10] MEDS: WARFARIN SOD 5 MG TAB PO SCH (16:40)
[2021-04-11] MEDS: METOPROLOL SUCC 25MG EXT REL TAB PO SCH ×2 (00:18→09:20)
[2021-04-11] MEDS: ASCORBIC ACID 500 MG TAB PO SCH ×2 (00:18→09:19)
[2021-04-11] MEDS: INSULIN ASPART 100 UNITS/ML 3 ML PEN SC SCH ×5 (00:19→20:54)
[2021-04-11] MEDS: ACETAMINOPHEN 1,000 MG/100 ML VIAL IV PRN (00:52)
[2021-04-11 06:09] LABS: Hematocrit (blood only) 35.1 % (42-52); Hemoglobin 11.5 g/dL (14.0-18.0); Mean Corpuscular Hemoglobin 29.9 pg (25-34); Mean Corpuscular Hgb Conc 32.8 g/dL (32-36); Mean Corpuscular Volume 91.2 fL (80-100); Platelet Count 194 K/uL (130-400); RDW Coefficient of Variation 13.4 % (11.5-14.5); RDW Standard Deviation 44.9 fL (36.4-46.3); Red Blood Count 3.85 M/uL (4.7-6.1); White Blood Count 8.46 K/uL (4.8-10.8)
[2021-04-11 06:34] LABS: INR 4.9 (0.9-1.1); Prothrombin Time 43.4 Seconds (9.0-12.0)
[2021-04-11 06:43] LABS: BUN Creatinine Ratio 21.8 (10-20); Creatinine Clr Calc Pharmacy 42.5 ml/min; Est GFR (African American) 71.5 ml/min; Est GFR (Non-African American) 61.7 ml/min; Magnesium 2.1 mg/dl (1.8-2.4); Potassium 4.5 mmol/L (3.5-5.1)
[2021-04-11 07:18] LABS: Phosphorus 2.6 mg/dl (2.5-4.9)
[2021-04-11] MEDS: D5NSS + 20MEQ KCL 20 MEQ/1,000 ML BAG IV SCH (09:19)
[2021-04-11] MEDS: CHOLECALCIFEROL 1,000 UNITS 25 MCG TAB PO SCH (09:19)
[2021-04-11 15:55] LABS: Appearance Urine Clear (Clear); Bacteria Urine Automated Negative (Negative); Bilirubin Urine Negative (Negative); Blood Urine 3+ (Negative); Color Urine Dark Yellow; Glucose Urine UA Negative (Negative); Ketones Urine Negative (Negative); Leukocyte Esterase Urine Trace (Negative); Nitrite Urine Negative (Negative); Protein Urine 2+ (Negative); RBC Urine Automated >30 /hpf (0-4); Specific Gravity Urine 1.025 (1.000-1.030); Urobilinogen Urine Positive (Negative); WBC Urine Automated >30 /hpf (0-5); pH Urine 6.5 (4.5-7.5)
[2021-04-11] MEDS: THIAMINE HCL 100 MG in SYRINGE 9 ML IV SCH ×2 (15:58→20:53)
--- NOTE | 2021-04-11 16:20 | XRay Report ---
KUB HISTORY: coresafe/check for ileus COMPARISON: Abdomen and pelvis CT 04/07/2021. FINDINGS: Feeding tube terminates within the body the stomach. No dilated loops of bowel within the u pper abdomen identified. Progressive patchy bilateral airspace opacities most pronounced within the p eriphery. This is concerning for a viral pneumonia. No pneumoperitoneum or pneumatosis. IMPRESSION: 1. Feeding tube terminates in the body of the stomach. 2. Peripheral patchy airspace opacities within the lungs have progressed and likely represent a viral pneumonia. ACT 112: Negative or not required by law. Electronically signed by: Huber Greco M.D. 04/11/2021 4:18 PM
[2021-04-11] MEDS: TUBE FEEDING WATER FLUSH GT SCH ×2 (17:49→21:04)
[2021-04-11] MEDS ORDERED: OLANZapine 10 MG/2.1 ML SDV IM STA (19:09)
--- NOTE | 2021-04-11 19:41 | Hospitalist Progress Note ---
Date of Service April 11, 2021 Assessment & Plan (1) Pneumonia due to COVID-19 virus: Plan: Hypoxic, known family exposure. Decadron on hold in setting of delirium. No remdesivir 2/2 JAIMIE. Min oxygen needs but he does have needs and should be wearing the oxygen. One to one nurse present, cont to reapply the oxygen. Mitts ordered to help. Cont supportive care. (2) Hypoxia: Plan: improved but still present. Cont oxygen supplementation for goal saturation >90%. (3) Hypernatremia: Plan: Resolved but at high risk for this to return with ongoing delirium and poor PO intake. BMP daily. (4) Delirium: Plan: Multifactorial in setting of dementia. Still present. Etiology is multifactorial including recent steroids, hyperglycemia, hypernatremia, ?ongoing pain, covid infection and hospitalization with hypoxia. Cont to treat possible underlying contributing factors listed. Reorient PRN, Zyprexa PRN. (5) Pain: Plan: Cannot gauge pain with delirium. Tylenol/Tramadol PRN. (6) Acute kidney injury superimposed on CKD: Plan: Creatinine improved. Continue to encourage adequate p.o. hydration. (7) Acute urinary retention: Plan: Lockhart placed on 04/07 with improvement in abdominal discomfort. Removed 04/10 and has required intermittent straight cath once overnight. Cont to bladder scan and if still retaining, may need to replace the lockhart catheter. (8) Elevated troponin: Plan: Likely related to demand ischemia in setting of EF 45%, CAD and known apical thrombus in setting of acute illness lasting for one week prior to arrival. No evidence of ACS at this time. (9) COPD (chronic obstructive pulmonary disease): Plan: Chronic, stable, no wheezing. (10) Vascular dementia: Plan: High risk for delirium with ongoing hypoxia, illness, hospitalization and recent steroids. (11) Left ventricular apical thrombus: Plan: warfarin has been on hold with INR going up. This is likely related to malnutrition state. Cont to hold warfarin, consider heparin infusion if INR becomes subtherapeutic and unable to tolerate oral meds. Currently no overt signs of bleeding. (12) Coronary artery disease involving [place] heart without angina pectoris: Plan: chronic, appears stable. Cont medical management. (13) Malnutrition: Plan: Thin, elderly, not eating well. Nutrition following. Placed corsafe to augment nutrition intake while fighting infection. Cont thiamine and Boost supplementation. Defer to nutrition if we want to go with tube feeds, however, he has delirium and is inclined to remove medical devices. Prefer to bolus feed at this time. Cont free water flushes to maintain hydration and stop IVF to avoid volume overload. (14) Supratherapeutic INR: Plan: INR > 10, reversed wtih vitamin K on admission. Restarted warfarin and then held when INR trended into supratherapeutic range again. (15) DVT prophylaxis: Plan: warfarin DNR/DNI Dispo-uncertain at this time. Pending improvement in oxygen needs. Poor prognosis. Gabriela Paredes DO [facility]ist Admission and Anticipated Discharge Date Admission Date: April 04, 2021 Subjective 81 yo M presents with covid pneumonia. very dry mouth is prohibiting a solid history is able to follow instructions to some degree but doesn't appear oriented today still with facial grimacing but today for the first time since admission he is not reporting any pain still cannot tolerate PO Corsafe placed and will continue with Boost supplementation with free water flushes Review of Systems Review of Systems: History is limited secondary to dry mouth prohibiting speech as well as delirium which is still present. Physical Exam Physical Exam: CONSTITUTIONAL: WNWD, vitals as above, generally ill- appearing, limited exam as patient is confused and has dry mucous membranes prohibiting him from appropriately articulating. EYES: normal conjunctivae, no scleral icterus ENT: external ear and nose normal NECK: trachea midline RESPIRATORY: clear to auscultation throughout, no rales or wheezes, normal respiratory effort CARDIOVASCULAR: regular rate and rhythm, S1 and 2 heard without murmurs, gallops or rubs, no JVD, no peripheral edema CHEST: inspection of chest was normal GASTROINTESTINAL: soft, nontender, ND, no guarding MUSCULOSKELETAL: strength 5/5 throughout, head is normocephalic and atraumatic SKIN: warm and dry NEUROLOGIC: CN 2-12 grossly intact, normal cognition, normal speech, PSYCHIATRIC: alert cooperative and answering questions appropriately Results & Data Results & Data ([facility]) Vital Signs (Past 12 Hours) Vital Signs Temp Pulse Resp BP Pulse Ox 04/11/21 18:58 36.7 C 110 H 18 104/67 91 04/11/21 14:56 37.1 C 82 20 100/56 L 93 04/11/21 11:47 37.0 C 83 20 111/81 92 Laboratory Results Short CBC 04/11/21 Range/Units 05:52 WBC 8.46 (4.8-10.8) K/uL Hgb 11.5 L (14.0-18.0) g/dL Hct 35.1 L (42-52) % Plt Count 194 (130-400) K/uL BMP 04/11/21 05:52 Sodium 145 Potassium 4.5 Chloride 117 H Carbon Dioxide 23 BUN 24 H Creatinine 1.12 Glucose 155 H Calcium 8.0 L Urine 04/11/21 Range/Units 15:25 Urine Color Dark Yellow Urine Appearance Clear (Clear) Urine pH 6.5 (4.5-7.5) Ur Specific [place] 1.025 (1.000-1.030) Urine Protein 2+ H (Negative) Urine Glucose (UA) Negative (Negative) Diagnostic Findings KUB X-Ray 04/11/21 15:29 KUB HISTORY: coresafe/check for ileus COMPARISON: Abdomen and pelvis CT 04/07/2021. FINDINGS: Feeding tube terminates within the body the stomach. No dilated loops of bowel within the upper abdomen identified. Progressive patchy bilateral airspace opacities most pronounced within the periphery. This is concerning for a viral pneumonia. No pneumoperitoneum or pneumatosis. IMPRESSION: 1. Feeding tube terminates in the body of the stomach. 2. Peripheral patchy airspace opacities within the lungs have progressed and likely represent a viral pneumonia. ACT 112: Negative or not required by law. Electronically signed by: Huber Greco M.D. 04/11/2021 4:18 PM Medications Administered Current Inpatient Medications Ascorbic Acid (Ascorbic Acid 500 Mg Tab) 500 mg PO BID [facility] Stop: 05/08/21 08:59 Last Admin: 04/11/21 09:19 Dose: Not Given Documented by: Dextrose (Dextrose 50% 50 Ml Syringe) 25 - 50 ml IV UD PRN; Protocol PRN Reason: Hypoglycemia Protocol Stop: 05/08/21 14:45 Glucagon (Glucagon For Inj 1 Mg Vial) 1 mg SQ UD PRN; Protocol PRN Reason: Hypoglycemia Protocol Stop: 05/08/21 14:45 Glucose (Glucose 10 Tabs/Tube) 4 - 8 tabs PO UD PRN; Protocol PRN Reason: Hypoglycemia Protocol Stop: 05/08/21 14:45 Glucose (Glucose 40% Gel 15 Gm Tube) 15 - 30 gm PO UD PRN; Protocol PRN Reason: Hypoglycemia Protocol Stop: 05/08/21 14:45 Acetaminophen (Ofirmev) 1,000 mg in 100 mls @ 400 mls/hr IV Q8H PRN PRN Reason: pain/fever Stop: 04/13/21 14:03 Last Infusion: 04/11/21 01:17 Dose: Infused Documented by: Thiamine HCl 100 mg/ Syringe 10 mls @ 2 mls/min IV BID [facility] Stop: 05/11/21 13:29 Last Admin: 04/11/21 15:58 Dose: 2 mls/min Documented by: Insulin Aspart (Insulin Aspart 100 Units/Ml 3 Ml Pen) 0 units SC ACHS [facility] Stop: 05/08/21 16:29 Last Admin: 04/11/21 16:57 Dose: Not Given Documented by: Metoprolol Tartrate (Metoprolol Tartrate 25 Mg Tab) 25 mg PO BID [facility] Stop: 05/11/21 20:59 Miscellaneous (Carbohydrates For Hypoglycemia ) 15 - 30 gm PO UD PRN PRN Reason: Hypoglycemia Protocol Stop: 05/08/21 14:45 Sterile Water (Tube Feeding Water Flush) 250 ml GT Q4H [facility] Stop: 05/11/21 17:14 Last Admin: 04/11/21 17:49 Dose: 250 ml Documented by: Tramadol HCl (Tramadol Hcl 50 Mg Tablet) 50 mg PO Q4H PRN PRN Reason: moderate to severe pain 5-10 Stop: 05/08/21 08:23 Last Admin: 04/09/21 08:02 Dose: 50 mg Documented by: Vitamin D (Cholecalciferol 1,000 Units 25 Mcg Tab) 1,000 units PO QAM [facility] Stop: 05/08/21 08:59 Last Admin: 04/11/21 09:19 Dose: Not Given Documented by: Warfarin Sodium (Warfarin Sod 5 Mg Tab) 5 mg PO DAILY@1600 [facility] Stop: 05/07/21 15:59 Last Admin: 04/10/21 16:40 Dose: Not Given Documented by:
[2021-04-11] MEDS: METOPROLOL TARTRATE 25 MG TAB PO SCH (20:53)
[2021-04-11] MEDS ORDERED: LORazepam 0.25 MG/0.5 ML VIAL IV STA (22:34)
[2021-04-11] MEDS ORDERED: LORazepam 2 MG/4 ML VIAL ONE (22:37)
[2021-04-11] MEDS ORDERED: LORazepam 0.5 MG/1 ML VIAL IV STA (22:57)
[2021-04-12] MEDS: TUBE FEEDING WATER FLUSH GT SCH ×7 (02:27→22:05)
[2021-04-12 07:52] LABS: Hematocrit (blood only) 36.1 % (42-52); Hemoglobin 12.1 g/dL (14.0-18.0); Mean Corpuscular Hemoglobin 30.7 pg (25-34); Mean Corpuscular Hgb Conc 33.5 g/dL (32-36); Mean Corpuscular Volume 91.6 fL (80-100); Mean Platelet Volume 11.5 fL (7.4-10.4); Platelet Count 270 K/uL (130-400); RDW Coefficient of Variation 13.8 % (11.5-14.5); RDW Standard Deviation 46.9 fL (36.4-46.3); Red Blood Count 3.94 M/uL (4.7-6.1); White Blood Count 10.21 K/uL (4.8-10.8)
--- NOTE | 2021-04-12 08:08 | XRay Report ---
KUB CLINICAL HISTORY: Enteric tube placement. FINDINGS: An AP, portable, supine abdominal radiograph is compared to study dated 04/11/2021. Correla tion is made with abdominal CT dated 04/07/2021. An enteric tube is in place. The tip projects over t he distal stomach. There is no radiographic evidence of bowel obstruction. No evidence of intraperito ruma free air is seen on this supine image. Airspace consolidation is seen at the lung bases. The ske letal structures are osteopenic and appear intact. There is moderate to advanced lumbosacral spondylo sis. A large calcification in the pelvis is unchanged. IMPRESSION: An enteric tube is in place as detailed above. Electronically signed by: Con Hinton M.D. 04/12/2021 8:06 AM
[2021-04-12 08:09] LABS: INR 3.7 (0.9-1.1)
[2021-04-12 08:12] LABS: Albumin Level 1.8 gm/dl (3.4-5.0); Calcium 8.5 mg/dl (8.5-10.1); Est GFR (African American) 67.1 ml/min; Est GFR (Non-African American) 57.9 ml/min; Magnesium 1.9 mg/dl (1.8-2.4); Potassium 4.4 mmol/L (3.5-5.1)
[2021-04-12 08:22] LABS: Albumin Globulin Ratio 0.4 (0.9-2); Globulin 4.5 gm/dl (2.5-4.0); Phosphorus 1.8 mg/dl (2.5-4.9); Total Protein 6.3 gm/dl (6.4-8.2)
[2021-04-12] MEDS: ACETAMINOPHEN 1,000 MG/100 ML VIAL IV PRN (08:28)
[2021-04-12] MEDS ORDERED: SODIUM PHOSPHATE 3 MMOL/1 ML 5 ML VIAL IV ONE (08:47)
[2021-04-12] MEDS ORDERED: SODIUM PHOSPHATE 30 MMOL in SODIUM CHLORIDE 0.9% 500 ML IV ONE (09:00)
--- NOTE | 2021-04-12 09:14 | XRay Report ---
XR chest 1V portable HISTORY: worsening hypoxia COMPARISON: Chest 04/04/2021. FINDINGS: No pneumothorax. No pleural effusions. The heart is stable in size. Emphysema is again note d. Patchy bilateral airspace opacities, right greater than left have progressed. There are old, heale d right-sided rib fractures. Nasogastric tube terminates below the diaphragm. The tip is not included on this study. IMPRESSION: 1. Interval progression of the patchy bilateral airspace opacities, right greater than left. This is consistent with a multifocal viral pneumonia. 2. Nasogastric tube terminates below the diaphragm. The tip is not included on this study. ACT 112: Negative or not required by law. Electronically signed by: Huber Greco M.D. 04/12/2021 9:13 AM
[2021-04-12] MEDS: THIAMINE HCL 100 MG in SYRINGE 9 ML IV SCH ×2 (09:48→21:03)
[2021-04-12] MEDS: METOPROLOL TARTRATE 25 MG TAB PO SCH ×2 (09:49→21:03)
[2021-04-12] MEDS: INSULIN ASPART 100 UNITS/ML 3 ML PEN SC SCH ×4 (09:52→22:00)
[2021-04-12 10:16] LABS: Base Excess ABG -3.9 mEq/L (-9-1.8); HCO3 ABG 18 mmol/L (19-24); Oxygen Saturation ABG 92.9 % (90-95); PCO2 ABG 25 mmHg (35-46); PO2 ABG 98 mmHg (80-95); pH ABG 7.49 (7.35-7.45)
[2021-04-12 10:17] LABS: Allen Test Pos (Pos)
[2021-04-12] MEDS ORDERED: SODIUM CHLORIDE 0.9% 1000ML 1,000 ML IV ONE (10:29)
--- NOTE | 2021-04-12 11:14 | Hospitalist Progress Note ---
Date of Service April 12, 2021 Assessment & Plan (1) Sepsis: (2) Acute and chronic respiratory failure with hypoxia: Plan: 2/2 covid pneumonia, see plan below. (3) Pneumonia due to COVID-19 virus: Plan: Progression of infiltrates above, now appears septic with elevated procalcitonin. Progression of viral covid pneumonia vs bacterial superinfection. Restart decadron now, initially held in setting of delirium. Still delirious but will have to try this to breathe and utilize 1:1 and mitts as needed. Will also bolus IVF now and cont IVF support as needed. With normal lactate this is not considered severe sepsis, and therefore, ok to go off the typical IVF resuscitation protocol. Cont vapotherm for support and OK to escalate to BIPAP if needed. Family updated. (4) Hypernatremia: Plan: Resolved after dextrose. Encourage PO hydration as tolerated. Remains at high risk of dehydration with poor oral intake. Coresafe in place and flushes are being given. BMP daily. (5) Delirium: Plan: Multifactorial in setting of dementia. Still present. Etiology is multifactorial including recent steroids, hyperglycemia, hypernatremia, ?ongoing pain, ?urinary retention issues, covid infection and hospitalization with hypoxia. Cont to treat possible underlying contributing factors listed. Reorient PRN, Zyprexa PRN. (6) Pain: Plan: Cannot gauge pain with delirium. Cont Tylenol as tolerated with Tramadol PRN. (7) Acute kidney injury superimposed on CKD: Plan: Creatinine improved. Continue to encourage adequate p.o. hydration. (8) Acute urinary retention: Plan: appeared to pass the TOV, however, has had low urine output and has received straight caths with no spontaneous urine output. Vences replaced for accurate I/Os. (9) Elevated troponin: Plan: Likely related to demand ischemia in setting of EF 45%, CAD and known apical thrombus in setting of acute illness lasting for one week prior to arrival. No evidence of ACS at this time. (10) COPD (chronic obstructive pulmonary disease): Plan: Chronic, stable, no wheezing. (11) Vascular dementia: Plan: High risk for delirium with ongoing hypoxia, illness, hospitalization and recent steroids. (12) Left ventricular apical thrombus: Plan: INR therapeutic off coumadin for several days, likely a result of malnutrition. Currently no overt signs of bleeding. (13) Coronary artery disease involving [place] heart without angina pectoris: Plan: chronic, appears stable. Cont medical management. (14) Malnutrition: Plan: Thin, elderly, not eating well. Contacted nutrition to start 24/7 tube feeds. Orders being placed. Gave Boost overnight. (15) Supratherapeutic INR: Plan: INR > 10, reversed wtih vitamin K. Warfarin was restarted and then has been held since warfarin has been restarted. Cont to hold. (16) DVT prophylaxis: Plan: warfarin DNR/DNI Dispo-uncertain at this time. Pending improvement in oxygen needs. Poor prog nosis. Palliative on board and in touch with his daughter. I contacted his daughter this morning and updated her. 30 minutes of critical care time was spent in the care of this patient including ordering and reviewing lab work, assessing the patient, coordinating care with nursing and respiratory, documenting findings and discussing issues with his daughter. Gabriela Paredes DO [facility] Hospitalist Admission and Anticipated Discharge Date Admission Date: April 04, 2021 Subjective 81 yo M presents with covid pneumonia. Contacted by nursing staff that patient has worsening hypoxia, tachycardia, and hypotensive. On arrival to bedside patient is obtunded and withdrawing to pain only He is now on hi flow vapotherm and oxygenating 96% He is restrained with mitts He is diaphoretic and cannot obtain history as patient is ill-appearing and obtunded. Review of Systems Review of Systems: cannot obtain history as patient is obtunded and septic. Physical Exam Physical Exam: CONSTITUTIONAL: thin, frail, vitals as above, generally ill- appearing, obtunded EYES: normal conjunctivae, no scleral icterus ENT: external ear and nose normal, vapotherm in place. NG tube in place. NECK: trachea midline RESPIRATORY: clear to auscultation throughout, diminished breath sounds, no rales or wheezes, normal respiratory effort CARDIOVASCULAR: regular rate and rhythm, S1 and 2 heard without murmurs, gallops or rubs, no JVD, no peripheral edema CHEST: inspection of chest was normal GASTROINTESTINAL: soft, nontender, ND, no guarding MUSCULOSKELETAL: cannot assess as patient is obtunded. SKIN: warm and diaphoretic. NEUROLOGIC: cannot assess, patient is obtunded Results & Data Results & Data ([facility]) Vital Signs (Past 12 Hours) Vital Signs Temp Pulse Pulse Pulse Resp BP BP 11/17/21 10:05 38.5 C H 85 20 81/53 L 106/59 L 04/12/21 08:37 93 H 24 04/12/21 08:10 131/111 H 04/12/21 06:50 38.8 C H 99 H 30 H 83/56 L 04/12/21 03:00 36.8 C 103 H 18 101/64 04/11/21 23:36 37.7 C H 89 18 102/75 04/11/21 23:00 107 H Pulse Ox 04/12/21 10:05 95 04/12/21 08:37 90 04/12/21 08:10 04/12/21 06:50 90 04/12/21 03:00 90 04/11/21 23:36 91 04/11/21 23:00 Laboratory Results Short CBC 04/12/21 Range/Units 07:18 WBC 10.21 (4.8-10.8) K/uL Hgb 12.1 L (14.0-18.0) g/dL Hct 36.1 L (42-52) % Plt Count 270 (130-400) K/uL BMP 04/12/21 07:18 Sodium 146 H Potassium 4.4 Chloride 118 H Carbon Dioxide 20 L BUN 25 H Creatinine 1.18 Glucose 99 Calcium 8.5 Liver Function 04/12/21 Range/Units 07:18 Total Bilirubin 1.0 (0.2-1) mg/dl AST 31 (15-37) U/L ALT 37 (12-78) U/L Alkaline Phosphatase 69 (45-117) U/L Albumin 1.8 L (3.4-5.0) gm/dl Urine 04/11/21 Range/Units 15:25 Urine Color Dark Yellow Urine Appearance Clear (Clear) Urine pH 6.5 (4.5-7.5) Ur Specific [place] 1.025 (1.000-1.030) Urine Protein 2+ H (Negative) Urine Glucose (UA) Negative (Negative) Diagnostic Findings KUB X-Ray 04/12/21 00:07 KUB CLINICAL HISTORY: Enteric tube placement. FINDINGS: An AP, portable, supine abdominal radiograph is compared to study dated 04/11/2021. Correlation is made with abdominal CT dated 04/07/2021. An enteric tube is in place. The tip projects over the distal stomach. There is no radiographic evidence of bowel obstruction. No evidence of intraperitoneal free air is seen on this supine image. Airspace consolidation is seen at the lung bases. The skeletal structures are osteopenic and appear intact. There is moderate to advanced lumbosacral spondylosis. A large calcification in the pelvis is unchanged. IMPRESSION: An enteric tube is in place as detailed above. Electronically signed by: Con Hinton M.D. 04/12/2021 8:06 AM Chest X-Ray 04/12/21 08:40 XR chest 1V portable HISTORY: worsening hypoxia COMPARISON: Chest 04/04/2021. FINDINGS: No pneumothorax. No pleural effusions. The heart is stable in size. Emphysema is again noted. Patchy bilateral airspace opacities, right greater than left have progressed. There are old, healed right-sided rib fractures. Nasogastric tube terminates below the diaphragm. The tip is not included on this study. IMPRESSION: 1. Interval progression of the patchy bilateral airspace opacities, right greater than left. This is consistent with a multifocal viral pneumonia. 2. Nasogastric tube terminates below the diaphragm. The tip is not included on this study. ACT 112: Negative or not required by law. Electronically signed by: Huber Greco M.D. 04/12/2021 9:13 AM Medications Administered Current Inpatient Medications Ascorbic Acid (Ascorbic Acid 500 Mg Tab) 500 mg PO BID [facility] Stop: 05/08/21 08:59 Last Admin: 04/11/21 09:19 Dose: Not Given Documented by: Dextrose (Dextrose 50% 50 Ml Syringe) 25 - 50 ml IV UD PRN; Protocol PRN Reason: Hypoglycemia Protocol Stop: 05/08/21 14:45 Glucagon (Glucagon For Inj 1 Mg Vial) 1 mg SQ UD PRN; Protocol PRN Reason: Hypoglycemia Protocol Stop: 05/08/21 14:45 Glucose (Glucose 10 Tabs/Tube) 4 - 8 tabs PO UD PRN; Protocol PRN Reason: Hypoglycemia Protocol Stop: 05/08/21 14:45 Glucose (Glucose 40% Gel 15 Gm Tube) 15 - 30 gm PO UD PRN; Protocol PRN Reason: Hypoglycemia Protocol Stop: 05/08/21 14:45 Acetaminophen (Ofirmev) 1,000 mg in 100 mls @ 400 mls/hr IV Q8H PRN PRN Reason: pain/fever Stop: 04/13/21 14:03 Last Infusion: 04/12/21 10:00 Dose: Infused Documented by: Thiamine HCl 100 mg/ Syringe 10 mls @ 2 mls/min IV BID [facility] Stop: 05/11/21 13:29 Last Admin: 04/12/21 09:48 Dose: 2 mls/min Documented by: Sodium Phosphate 30 mmol/ (Sodium Chloride) 510 mls @ 88 mls/hr IV ONE ONE Stop: 04/12/21 14:47 Last Admin: 04/12/21 10:40 Dose: 88 mls/hr Documented by: Sodium Chloride (Nss 1000ml) 1,000 mls @ 999 mls/hr IV .Q1H1M ONE Stop: 04/12/21 11:29 Ceftriaxone Sodium 1,000 mg/ (Dextrose) 60 mls @ 120 mls/hr IV Q24H [facility]; Protocol Stop: 04/19/21 10:59 Doxycycline Hyclate 100 mg/ (Dextrose) 110 mls @ 55 mls/hr IV Q12H [facility] Stop: 04/19/21 11:59 Insulin Aspart (Insulin Aspart 100 Units/Ml 3 Ml Pen) 0 units SC ACHS [facility] Stop: 05/08/21 16:29 Last Admin: 04/12/21 09:52 Dose: Not Given Documented by: Metoprolol Tartrate (Metoprolol Tartrate 25 Mg Tab) 25 mg PO BID [facility] Stop: 05/11/21 20:59 Last Admin: 04/12/21 09:49 Dose: 25 mg Documented by: Miscellaneous (Carbohydrates For Hypoglycemia ) 15 - 30 gm PO UD PRN PRN Reason: Hypoglycemia Protocol Stop: 05/08/21 14:45 Sterile Water (Tube Feeding Water Flush) 250 ml GT Q4H [facility] Stop: 05/11/21 17:14 Last Admin: 04/12/21 09:56 Dose: 250 ml Documented by: Tramadol HCl (Tramadol Hcl 50 Mg Tablet) 50 mg PO Q4H PRN PRN Reason: moderate to severe pain 5-10 Stop: 05/08/21 08:23 Last Admin: 04/09/21 08:02 Dose: 50 mg Documented by: Vitamin D (Cholecalciferol 1,000 Units 25 Mcg Tab) 1,000 units PO QAM [facility] Stop: 05/08/21 08:59 Last Admin: 04/11/21 09:19 Dose: Not Given Documented by: Warfarin Sodium (Warfarin Sod 5 Mg Tab) 5 mg PO DAILY@1600 [facility] Stop: 05/07/21 15:59 Last Admin: 04/10/21 16:40 Dose: Not Given Documented by:
[2021-04-12] MEDS ORDERED: dexAMETHasone 6 MG in SYRINGE 0 ML IV ONE (11:15)
[2021-04-12] MEDS: cefTRIAXone SODIUM 1,000 MG in DEXTROSE 5% 50 ML IV SCH (12:37)
[2021-04-12] MEDS: DOXYCYCLINE HYCLATE 100 MG in DEXTROSE 5% 100 ML IV SCH ×2 (12:38→23:07)
[2021-04-12] MEDS: PEPTAMEN 1.5 CAL 1,000 ML BAG PO SCH (13:43)
[2021-04-13] MEDS: TUBE FEEDING WATER FLUSH GT SCH ×6 (01:48→20:00)
[2021-04-13] MEDS ORDERED: OLANZapine 10 MG/2.1 ML SDV IM PRN (03:12)
[2021-04-13 07:34] LABS: Hematocrit (blood only) 35.8 % (42-52); Hemoglobin 11.7 g/dL (14.0-18.0); Mean Corpuscular Hemoglobin 29.8 pg (25-34); Mean Corpuscular Hgb Conc 32.7 g/dL (32-36); Mean Corpuscular Volume 91.3 fL (80-100); Mean Platelet Volume 11.5 fL (7.4-10.4); Platelet Count 307 K/uL (130-400); RDW Coefficient of Variation 13.9 % (11.5-14.5); RDW Standard Deviation 46.2 fL (36.4-46.3); Red Blood Count 3.92 M/uL (4.7-6.1); White Blood Count 22.16 K/uL (4.8-10.8)
[2021-04-13 07:46] LABS: INR 4.5 (0.9-1.1); Prothrombin Time 40.3 Seconds (9.0-12.0)
[2021-04-13 07:54] LABS: BUN Creatinine Ratio 26.7 (10-20); Calcium 8.4 mg/dl (8.5-10.1); Creatinine Clr Calc Pharmacy 42.5 ml/min; Est GFR (African American) 69.3 ml/min; Est GFR (Non-African American) 59.8 ml/min; Potassium 3.9 mmol/L (3.5-5.1)
[2021-04-13 08:02] LABS: C Reactive Protein 24.9 mg/dl (0-0.29)
[2021-04-13] MEDS: dexAMETHasone 6 MG in SYRINGE 0 ML IV SCH (09:50)
[2021-04-13] MEDS: THIAMINE HCL 100 MG in SYRINGE 9 ML IV SCH ×2 (09:51→20:06)
[2021-04-13] MEDS: METOPROLOL TARTRATE 25 MG TAB PO SCH ×2 (09:52→20:01)
[2021-04-13] MEDS: OLANZapine 10 MG/2.1 ML SDV IM PRN (10:13)
[2021-04-13] MEDS: INSULIN ASPART 100 UNITS/ML 3 ML PEN SC SCH ×4 (10:16→18:24)
[2021-04-13] MEDS: INSULIN GLARGINE SOLOSTAR 100 UNITS/ML 3 ML PEN SQ SCH (10:22)
[2021-04-13] MEDS: cefTRIAXone SODIUM 1,000 MG in DEXTROSE 5% 50 ML IV SCH (11:35)
[2021-04-13] MEDS: ACETAMINOPHEN 1,000 MG/100 ML VIAL IV PRN (11:41)
[2021-04-13] MEDS: DOXYCYCLINE HYCLATE 100 MG in DEXTROSE 5% 100 ML IV SCH (12:00)
--- NOTE | 2021-04-13 17:02 | Hospitalist Progress Note ---
Date of Service April 13, 2021 Assessment & Plan (1) Sepsis: Plan: Appeared sepsis on morning on 04/12. Workup revealed progression of infiltrates and antibiotics and fluids were given for possible superimposed bacterial infection. Improved today. Resuscitated. (2) Acute and chronic respiratory failure with hypoxia: Plan: 2/2 covid pneumonia, see plan below. (3) Pneumonia due to COVID-19 virus: Plan: Worsened leukocytosis and delirium this am wtih slight worsening of hypoxia, now consistently requiring hi flow support. Progression of viral covid pneumonia vs bacterial superinfection. Cont decadron, Rocephin and doxycycline. Delirium has improved with treatment overnight and additional Zyprexa this morning. Tube feeds are also now at goal 45cc/hr. Increased free water flushes with Na 146. Cont vapotherm for support and OK to escalate to BIPAP if needed. Of note, pulmonary saw him and agree a superimposed bacterial infection is likely present. So despite rise in CRP to 25 indicative of possible cytokine storm, consideration of tociluzimab aborted. (4) Hypernatremia: Plan: Resolved after dextrose. Encourage PO hydration as tolerated. Remains at high risk of dehydration with poor oral intake. Coresafe in place and flushes are be ing given. BMP daily. (5) Delirium: Plan: Multifactorial in setting of dementia. Still present. Etiology is multifactorial including recent steroids, hyperglycemia, hypernatremia, ?ongoing pain, ?urinary retention issues, covid infection and hospitalization with hypoxia. Cont to treat possible underlying contributing factors listed. Reorient PRN, Zyprexa PRN. Of note, he was more clear when I saw him but continued throughout the day to remove medical devices and climb out of bed. (6) Pain: Plan: Cannot gauge pain with delirium. Cont Tylenol as tolerated with Tramadol PRN. (7) Acute kidney injury superimposed on CKD: Plan: Creatinine improved. Continue to encourage adequate p.o. hydration. (8) Acute urinary retention: Plan: appeared to pass the TOV, however, has had low urine output and has received straight caths with no spontaneous urine output. Vences replaced for accurate I/Os. (9) Elevated troponin: Plan: Likely related to demand ischemia in setting of EF 45%, CAD and known apical thrombus in setting of acute illness lasting for one week prior to arrival. No evidence of ACS at this time. (10) COPD (chronic obstructive pulmonary disease): Plan: Chronic, stable, no wheezing. (11) Vascular dementia: Plan: High risk for delirium with ongoing hypoxia, illness, hospitalization and recent steroids. (12) Left ventricular apical thrombus: Plan: INR therapeutic off coumadin for several days, likely a result of malnutrition. Currently no overt signs of bleeding. (13) Coronary artery disease involving [place] heart without angina pectoris: Plan: chronic, appears stable. Cont medical management. (14) Malnutrition: Plan: Thin, elderly, not eating well. Tube feeds through NG tube are at goal. (15) Supratherapeutic INR: Plan: INR > 10, reversed wtih vitamin K. Warfarin was restarted and then has been held since warfarin has been restarted. Cont to hold. (16) DVT prophylaxis: Plan: warfarin DNR/DNI Dispo-uncertain at this time. Poor prognosis. Gabriela Paredes DO [facility] Ad[facility] and Anticipated Discharge Date Admission Date: April 04, 2021 Subjective 81 yo M presents with covid pneumonia. Increased oxygen needs overnight, now on Vapotherm Intermittent delirium throughout the day, mitts in place, intermittent chemo restriction with Zyprexa. Patient unable to give a history Review of Systems Review of Systems: Patient unable to give a review of systems secondary to intermittent delirium. Physical Exam Physical Exam: CONSTITUTIONAL: thin, frail, vitals as above, generally ill- appearing, EYES: normal conjunctivae, no scleral icterus ENT: external ear and nose normal, vapotherm in place. NG tube in place. NECK: trachea midline RESPIRATORY: Coarse rhonchi throughout, no rales or wheezes, normal respiratory effort CARDIOVASCULAR: regular rate and rhythm, S1 and 2 heard without murmurs, gal lops or rubs, no JVD, no peripheral edema CHEST: inspection of chest was normal GASTROINTESTINAL: soft, nontender, ND, no guarding MUSCULOSKELETAL: Generalized weakness, moves all extremities equally. No gross focal deficits. SKIN: warm and diaphoretic. NEUROLOGIC: No gross focal deficits. Results & Data Results & Data ([facility]) Vital Signs (Past 12 Hours) Vital Signs Temp Pulse Pulse Resp BP Pulse Ox 04/13/21 15:53 36.6 C 88 16 129/76 92 04/13/21 15:37 93 H 20 91 04/13/21 11:33 37.7 C H 101 H 30 H 124/76 91 04/13/21 11:04 97 H 21 92 04/13/21 08:00 93 H 04/13/21 07:46 36.1 C L 95 H 24 119/82 93 04/13/21 06:30 117 H 22 90 Laboratory Results Short CBC 04/13/21 Range/Units 06:52 WBC 22.16 H D (4.8-10.8) K/uL Hgb 11.7 L (14.0-18.0) g/dL Hct 35.8 L (42-52) % Plt Count 307 (130-400) K/uL BMP 04/13/21 06:52 Sodium 146 H Potassium 3.9 Chloride 119 H Carbon Dioxide 17 L BUN 31 H Creatinine 1.15 Glucose 222 H Calcium 8.4 L Cardiac Enzymes 04/13/21 Range/Units 06:52 Total Creatine Kinase 152 (39-308) U/L Medications Administered Current Inpatient Medications Ascorbic Acid (Ascorbic Acid 500 Mg Tab) 500 mg PO BID RLOY Stop: 05/08/21 08:59 Last Admin: 04/11/21 09:19 Dose: Not Given Documented by: Dextrose (Dextrose 50% 50 Ml Syringe) 25 - 50 ml IV UD PRN; Protocol PRN Reason: Hypoglycemia Protocol Stop: 05/08/21 14:45 Enteral Nutritional Formula (Peptamen 1.5 James 1,000 Ml Bag) 1,000 ml PO DAILY@1200 ROLY; Protocol Stop: 05/12/21 11:59 Last Admin: 04/12/21 13:43 Dose: 1,000 ml Documented by: Glucagon (Glucagon For Inj 1 Mg Vial) 1 mg SQ UD PRN; Protocol PRN Reason: Hypoglycemia Protocol Stop: 05/08/21 14:45 Glucose (Glucose 10 Tabs/Tube) 4 - 8 tabs PO UD PRN; Protocol PRN Reason: Hypoglycemia Protocol Stop: 05/08/21 14:45 Glucose (Glucose 40% Gel 15 Gm Tube) 15 - 30 gm PO UD PRN; Protocol PRN Reason: Hypoglycemia Protocol Stop: 05/08/21 14:45 Thiamine HCl 100 mg/ Syringe 10 mls @ 2 mls/min IV BID ROLY Stop: 05/11/21 13:29 Last Admin: 04/13/21 09:51 Dose: 2 mls/min Documented by: Ceftriaxone Sodium 1,000 mg/ (Dextrose) 60 mls @ 120 mls/hr IV Q24H [facility]; Protocol Stop: 04/19/21 10:59 Last Infusion: 04/13/21 12:44 Dose: Infused Documented by: Doxycycline Hyclate 100 mg/ (Dextrose) 110 mls @ 55 mls/hr IV Q12H [facility] Stop: 04/19/21 11:59 Last Infusion: 04/13/21 14:29 Dose: Infused Documented by: Dexamethasone 6 mg/ Syringe 1.5 mls @ 1 mls/min IV Q24H [facility] Stop: 05/12/21 08:59 Last Admin: 04/13/21 09:50 Dose: 1 mls/min Documented by: Insulin Aspart (Insulin Aspart 100 Units/Ml 3 Ml Pen) 0 units SC Q6 [facility]; Protocol Stop: 05/13/21 09:59 Last Admin: 04/13/21 13:22 Dose: 3 units Documented by: Insulin Glargine (Insulin Glargine Solostar 100 Units/Ml 3 Ml Pen) 10 units SQ DAILY [facility] Stop: 05/13/21 08:59 Last Admin: 04/13/21 10:22 Dose: 10 units Documented by: Metoprolol Tartrate (Metoprolol Tartrate 25 Mg Tab) 25 mg PO BID [facility] Stop: 05/11/21 20:59 Last Admin: 04/13/21 09:52 Dose: 25 mg Documented by: Miscellaneous (Carbohydrates For Hypoglycemia ) 15 - 30 gm PO UD PRN PRN Reason: Hypoglycemia Protocol Stop: 05/08/21 14:45 Olanzapine (Olanzapine 10 Mg/2.1 Ml Sdv) 5 mg IM Q6H PRN PRN Reason: severe agitation Stop: 05/13/21 03:11 Last Admin: 04/13/21 10:13 Dose: 5 mg Documented by: Sterile Water (Tube Feeding Water Flush) 250 ml GT Q4H [facility] Stop: 05/12/21 13:59 Last Admin: 04/13/21 14:28 Dose: 250 ml Documented by: Tramadol HCl (Tramadol Hcl 50 Mg Tablet) 50 mg PO Q4H PRN PRN Reason: moderate to severe pain 5-10 Stop: 05/08/21 08:23 Last Admin: 04/09/21 08:02 Dose: 50 mg Documented by: Vitamin D (Cholecalciferol 1,000 Units 25 Mcg Tab) 1,000 units PO QAM [facility] Stop: 05/08/21 08:59 Last Admin: 04/11/21 09:19 Dose: Not Given Documented by: Warfarin Sodium (Warfarin Sod 5 Mg Tab) 5 mg PO DAILY@1600 [facility] Stop: 05/07/21 15:59 Last Admin: 04/10/21 16:40 Dose: Not Given Documented by:
[2021-04-13] MEDS: PEPTAMEN 1.5 CAL 1,000 ML BAG PO SCH (17:09)
--- NOTE | 2021-04-13 19:28 | Pulmonary Consultation ---
Date of Consultation April 13, 2021 Assessment & Plan (1) Acute and chronic respiratory failure with hypoxia: (2) Pneumonia due to COVID-19 virus: (3) COPD (chronic obstructive pulmonary disease): Chest x-ray 04/12/2021 personally reviewed: Portable film, good inspiratory effort, bilateral costophrenic and cardiophrenic angles are clean Alveolar opacities appreciated bilaterally more on the right side, inguinal hernia Opacities have worsened since the time of presentation --Acute hypoxic respiratory failure Secondary to COVID-19 pneumonia COVID-19 PCR positive 04/04/2021 Procalcitonin 1.02 CRP 24.9 BNP 3892 Continue with O2 supplementation to keep oxygen saturation between 90-92%. Awake proning will be helpful Continue with incentive spirometry Continue with flutter valve. Recommend patient to be kept euvolemic to negative balance Plan: Patient did have elevated procalcitonin, would recommend to continue with antibiotics for at least 7 days Because of underlying dementia I do not think patient will be able to do flutter valve or incentive spirometry but I think that will be beneficial for him Patient is not a candidate for baricitinib or any other immunologic given that he has been in the hospital for almost 9 days Given the elevated BNP would recommend to give diuretics Case was discussed with Dr. Paredes Please note the above document was generated using voice recognition software. It may contain grammatical, syntax or spelling errors.Any formal questions or concerns about the content, text or information contained within the body of this dictation should be directly addressed to the provider for clarification. History of Present Illness Attending Physician: Gabriela Paredes, History of Present Illness 81-year-old male past medical history of COPD, ischemic heart disease, CKD 3, dementia, chronic systolic CHF is the hospital because of lethargy and weakness Patient had diarrhea and chills 4 days ago prior to presentation. He was found to be Covid positive on Saturday. Pulmonary consulted because of increasing oxygen requirement At the time of examination patient was on high flow 40 L, 75% saturating 93-94% He had mittens on as he was trying to pull off the high flow Patient personally is a poor historian He denies any chest pain no headache Does complain of cough, no congestion. Allergies Allergy/AdvReac Type Severity Reaction Status Date / Time aspirin AdvReac Unknown Verified 04/04/21 15:26 mirtazapine [From Remeron] AdvReac Unknown Verified 04/04/21 15:26 Home Medications Medication Instructions Recorded Confirmed Type metoprolol succinate 25 mg 25 mg PO BID #60 tab 11/07/20 04/04/21 Rx tablet,extended release 24 hr atorvastatin 20 mg tablet 20 mg PO QAM 04/04/21 04/04/21 History trazodone 50 mg tablet 50 mg PO HS 04/04/21 04/04/21 History warfarin 5 mg tablet 5 mg PO UD 04/04/21 04/04/21 History Patient History Medical History (Updated 04/12/21 @ 11:15 by Gabriela Paredes DO) Agitation Altered mental status Chronic systolic (congestive) heart failure CKD (chronic kidney disease) stage 3, GFR 30-59 ml/min COPD (chronic obstructive pulmonary disease) Coronary artery disease involving [place] heart without angina pectoris Former smoker Hyperlipidemia Left ventricular apical thrombus Palliative care encounter Vascular dementia Weakness Surgical History History of appendectomy History of carotid endarterectomy History of hernia repair Family History Mother Diabetes Hypertension Father Throat cancer Brother Throat cancer Other Stroke Social History Smoking Status: Former smoker Tobacco Type: Cigarettes Hx Alcohol Use: No Hx Substance Use: No Preferred Language: Syriac Communication Ability: Effective Stem Sizer Required: No Beliefs That Will Affect Care: None marital status: / Current Living Situation: Family Other Information That Helps Us Care for You: No Feels Safe at Home: Yes Safety Concerns: Feels Safe At This Time Assistive Devices: Oxygen - Continuous Review of Systems Review of Systems: Unobtainable due to mental health condition Physical Exam Physical Exam: Constitutional: No acute distress, frail-appearing HEENT: EOMI, PERRLA Respiratory system: Decreased air entry bilaterally, no wheeze, no crackle positive crackles bilateral lower lobes CVS: S1-S2 positive Abdomen: Soft, nontender, nondistended, positive bowel sounds x4 Extremities: +2 pulses bilaterally radialis/ dorsalis pedis, no cyanosis, no edema Neuro: Awake alert oriented only to self Psych: Normal mood and affect G/U: Positive Vences Skin: no rashes, warm and dry Lymphatic: no cervical or axillary lymphadenopathy Results & Data Results & Data ([facility]) Vital Signs (Past 12 Hours) Vital Signs Temp Pulse Pulse Resp BP Pulse Ox 04/13/21 19:13 36.7 C 94 H 26 H 133/95 91 04/13/21 18:43 93 H 04/13/21 15:53 36.6 C 88 16 129/76 92 04/13/21 15:37 93 H 20 91 04/13/21 11:33 37.7 C H 101 H 30 H 124/76 91 04/13/21 11:04 97 H 21 92 04/13/21 08:00 93 H 04/13/21 07:46 36.1 C L 95 H 24 119/82 93 04/14/21 07:06 04/14/21 07:06 PG Care Time/CCT Total # of Minutes Spent Total Time Spent with Patient: Total time spent is greater than 50% in coordination of care (as documented) at patient's floor/unit and/or counseling patient: Coding Level of Care Code 89387 Initial Inpt Care Lvl 3 Diagnoses Acute and chronic respiratory failure with hypoxia J96.21 Pneumonia due to COVID-19 virus U07.1; J12.82 COPD (chronic obstructive pulmonary disease) J44.9
[2021-04-14] MEDS: DOXYCYCLINE HYCLATE 100 MG in DEXTROSE 5% 100 ML IV SCH ×3 (00:24→23:38)
[2021-04-14] MEDS: TUBE FEEDING WATER FLUSH GT SCH ×7 (00:27→23:41)
[2021-04-14] MEDS: INSULIN ASPART 100 UNITS/ML 3 ML PEN SC SCH ×4 (00:38→18:23)
--- NOTE | 2021-04-14 07:23 | Electrocardiogram Report ---
Test Reason : Blood Pressure : / mmHG Vent. 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
[2021-04-14] MEDS ORDERED: FUROSEMIDE INJ 20 MG/2 ML VIAL IV ONE (07:39)
[2021-04-14] MEDS: dexAMETHasone 6 MG in SYRINGE 0 ML IV SCH (08:16)
[2021-04-14] MEDS: THIAMINE HCL 100 MG in SYRINGE 9 ML IV SCH ×2 (08:17→20:09)
[2021-04-14] MEDS: METOPROLOL TARTRATE 25 MG TAB PO SCH ×2 (08:17→20:09)
[2021-04-14 09:07] LABS: Basophils # (auto) 0.01 K/uL (0-0.2); Hematocrit (blood only) 33.6 % (42-52); Hemoglobin 11.1 g/dL (14.0-18.0); Immature Granulocytes # (auto) 0.12 K/uL (0.00-0.02); Immature Granulocytes % (auto) 0.6 %; Lymphocytes # (auto) 0.46 K/uL (1.2-3.4); Lymphocytes % (auto) 2.3 %; Mean Corpuscular Hemoglobin 30.2 pg (25-34); Mean Corpuscular Volume 91.6 fL (80-100); Mean Platelet Volume 11.7 fL (7.4-10.4); Monocytes # (auto) 0.88 K/uL (0.11-0.59); Monocytes % (auto) 4.4 %; Neutrophils # (auto) 18.62 K/uL (1.4-6.5); Neutrophils % (auto) 92.7 %; Platelet Count 257 K/uL (130-400); RDW Coefficient of Variation 13.6 % (11.5-14.5); RDW Standard Deviation 45.7 fL (36.4-46.3); Red Blood Count 3.67 M/uL (4.7-6.1); White Blood Count 20.09 K/uL (4.8-10.8)
[2021-04-14 09:25] LABS: INR 2.8 (0.9-1.1); Prothrombin Time 26.6 Seconds (9.0-12.0)
[2021-04-14 09:43] LABS: BUN Creatinine Ratio 31.4 (10-20); Calcium 8.6 mg/dl (8.5-10.1); Creatinine Clr Calc Pharmacy 51.5 ml/min; Est GFR (African American) 88.4 ml/min; Est GFR (Non-African American) 76.3 ml/min; Magnesium 2.1 mg/dl (1.8-2.4)
[2021-04-14 09:59] LABS: C Reactive Protein 9.24 mg/dl (0-0.29)
[2021-04-14] MEDS ORDERED: SODIUM PHOSPHATE 3 MMOL/1 ML INFUSION IV STA (10:09)
[2021-04-14] MEDS: INSULIN GLARGINE SOLOSTAR 100 UNITS/ML 3 ML PEN SQ SCH (10:18)
[2021-04-14] MEDS ORDERED: FUROSEMIDE 40 MG/4 ML VIAL IV ONE (10:24)
[2021-04-14] MEDS ORDERED: SODIUM PHOSPHATE 30 MMOL in SODIUM CHLORIDE 0.9% 500 ML IV ONE (10:30)
--- NOTE | 2021-04-14 10:43 | Pulmonology Progress Note ---
Date of Service April 14, 2021 Assessment & Plan (1) Acute and chronic respiratory failure with hypoxia: (2) Pneumonia due to COVID-19 virus: (3) COPD (chronic obstructive pulmonary disease): Plan: Chest x-ray 04/12/2021 personally reviewed: Portable film, good inspiratory effort, bilateral costophrenic and cardiophrenic angles are clean Alveolar opacities appreciated bilaterally more on the right side, inguinal hernia Opacities have worsened since the time of presentation --Acute hypoxic respiratory failure Secondary to COVID-19 pneumonia COVID-19 PCR positive 04/04/2021 Procalcitonin 1.02 CRP 24.9 BNP 3892 Continue with O2 supplementation to keep oxygen saturation between 90-92%. Awake proning will be helpful Continue with incentive spirometry Continue with flutter valve. Recommend patient to be kept euvolemic to negative balance Plan: Patient is +2 L in the last 24 hours Give the patient negative balance. Dose of Lasix given today Continue with Lasix to keep the patient negative balance Continue the course of antibiotics Overall prognosis is guarded given the patient's mental status and severe pneumonia Patient's oxygen requirements are going down. No further recommendation from pulmonary perspective. Will sign off. Please call directly with any questions Please note the above document was generated using voice recognition software. It may contain grammatical, syntax or spelling errors.Any formal questions or concerns about the content, text or information contained within the body of this dictation should be directly addressed to the provider for clarification. Admission and Anticipated Discharge Date Admission Date: April 04, 2021 Subjective Patient seen and examined at bedside. No acute distress, no adverse events overnight At the time of examination patient was on nasal cannula saturating 97% on 10 L. I went down to 8 L and he was still saturating 96% He was more lethargic today. As per the aide patient was made to walk and he got tired Patient denied any headache, no nausea vomiting Has been feeding getting feedings through NGT Review of Systems Review of Systems: Unobtainable due to mental health condition Physical Exam Physical Exam: Constitutional: No acute distress, frail-appearing HEENT: EOMI, PERRLA Respiratory system: Decreased air entry bilaterally, no wheeze, no crackle positive crackles bilateral lower lobes CVS: S1-S2 positive Abdomen: Soft, nontender, nondistended, positive bowel sounds x4 Extremities: +2 pulses bilaterally radialis/ dorsalis pedis, no cyanosis, no edema Neuro: Awake alert oriented only to self Psych: Somnolent G/U: Positive Vences Skin: no rashes, warm and dry Lymphatic: no cervical or axillary lymphadenopathy Results & Data Results & Data ([facility]) Vital Signs (Past 12 Hours) Vital Signs Temp Pulse Resp BP Pulse Ox 04/14/21 06:13 91 H 22 90 04/14/21 04:00 36.8 C 91 H 28 H 104/71 93 04/14/21 02:40 105 H 22 90 04/13/21 23:08 94 H 22 91 04/13/21 22:53 36.9 C 94 H 26 H 150/74 H 92 04/14/21 07:06 04/14/21 07:06 PG Care Time/CCT Total # of Minutes Spent Total Time Spent with Patient: Total time spent is greater than 50% in coordination of care (as documented) at patient's floor/unit and/or counseling patient: Coding Level of Care Code 32377 Subseq Hosp Care Lvl 2 Diagnoses Acute and chronic respiratory failure with hypoxia J96.21 Pneumonia due to COVID-19 virus U07.1; J12.82 COPD (chronic obstructive pulmonary disease) J44.9
[2021-04-14] MEDS: cefTRIAXone SODIUM 1,000 MG in DEXTROSE 5% 50 ML IV SCH (12:06)
[2021-04-14 12:45] LABS: Phosphorus 1.3 mg/dl (2.5-4.9)
[2021-04-14] MEDS: PEPTAMEN 1.5 CAL 1,000 ML BAG PO SCH (13:34)
--- NOTE | 2021-04-14 22:00 | Hospitalist Progress Note ---
Date of Service April 14, 2021 Assessment & Plan (1) Sepsis: Plan: Appeared sepsis on morning on 04/12. Workup revealed progression of infiltrates and antibiotics and fluids were given for possible superimposed bacterial infection. Improved today. Resuscitated. (2) Acute and chronic respiratory failure with hypoxia: Plan: 2/2 covid pneumonia, see plan below. (3) Pneumonia due to COVID-19 virus: Plan: Worsened leukocytosis and delirium this am wtih slight worsening of hypoxia, now consistently requiring hi flow support. Progression of viral covid pneumonia vs bacterial superinfection. Cont decadron, Rocephin and doxycycline. Delirium has improved with treatment overnight. Tube feeds are also now at goal 45cc/hr. Cont vapotherm for support and OK to escalate to BIPAP if needed. CRP improved. (4) Hypernatremia: Plan: Cont free water flushes. Remains at high risk of dehydration with poor oral intake. Coresafe in place and flushes are being given. BMP daily. (5) Delirium: Plan: Multifactorial in setting of dementia. Still present. Etiology is multifactorial including recent steroids, hyperglycemia, hypernatremia, ?ongoing pain, ?urinary retention issues, covid infection and hospitalization with hypoxia. Cont to treat possible underlying contributing factors listed. Reorient PRN, Zyprexa PRN. Of note, he was more clear when I saw him but continued throughout the day to remove medical devices and climb out of bed. (6) Pain: Plan: Cannot gauge pain with delirium. Cont Tylenol as tolerated with Tramadol PRN. (7) Acute kidney injury superimposed on CKD: Plan: Creatinine improved. Continue to encourage adequate p.o. hydration. (8) Acute urinary retention: Plan: appeared to pass the TOV, however, has had low urine output and has received straight caths with no spontaneous urine output. Vences replaced for accurate I/Os. (9) Elevated troponin: Plan: Likely related to demand ischemia in setting of EF 45%, CAD and known apical thrombus in setting of acute illness lasting for one week prior to arrival. No evidence of ACS at this time. (10) COPD (chronic obstructive pulmonary disease): Plan: Chronic, stable, no wheezing. (11) Vascular dementia: Plan: High risk for delirium with ongoing hypoxia, illness, hospitalization and recent steroids. (12) Left ventricular apical thrombus: Plan: INR therapeutic off coumadin for several days, likely a result of malnutrition. Currently no overt signs of bleeding. (13) Coronary artery disease involving [place] heart without angina pectoris: Plan: chronic, appears stable. Cont medical management. (14) Malnutrition: Plan: Thin, elderly, not eating well. Tube feeds through NG tube are at goal. (15) Supratherapeutic INR: Plan: INR > 10, reversed wtih vitamin K. Warfarin was restarted and then has been held since warfarin has been restarted. Cont to hold. (16) DVT prophylaxis: Plan: warfarin DNR/DNI Dispo-uncertain at this time. Poor prognosis. Gabriela Paredes DO [facility]ist Admission and Anticipated Discharge Date Admission Date: April 04, 2021 Subjective 81 yo M presents with covid pneumonia. Stable overnight, remains on Vapotherm Intermittent delirium throughout the day, mitts in place, intermittent chemo restriction with Zyprexa. Patient unable to give a history Corseafe still in place and he is at goal tube feeds. Review of Systems Review of Systems: Patient unable to give a review of systems secondary to intermittent delirium. Physical Exam Physical Exam: CONSTITUTIONAL: thin, frail, vitals as above, generally ill- appearing, EYES: normal conjunctivae, no scleral icterus ENT: external ear and nose normal, vapotherm in place. NG tube in place. NECK: trachea midline RESPIRATORY: Coarse rhonchi throughout, no rales or wheezes, normal respiratory effort CARDIOVASCULAR: regular rate and rhythm, S1 and 2 heard without murmurs, gallops or rubs, no JVD, no peripheral edema CHEST: inspection of chest was normal GASTROINTESTINAL: soft, nontender, ND, no guarding MUSCULOSKELETAL: Generalized weakness, moves all extremities equally. No gross focal deficits. SKIN: warm and diaphoretic. NEUROLOGIC: No gross focal deficits. Results & Data Results & Data ([facility]) Vital Signs (Past 12 Hours) Vital Signs Temp Pulse Resp BP Pulse Ox 04/14/21 19:02 36.7 C 79 16 109/71 94 04/14/21 17:05 96 04/14/21 16:00 36.6 C 98 H 18 109/68 97 04/14/21 14:56 84 21 94 04/14/21 14:52 76 22 94 04/14/21 12:33 36.6 C 89 16 100/66 96 04/14/21 10:48 91 H 23 88 L Laboratory Results Short CBC 04/14/21 Range/Units 07:06 WBC 20.09 H (4.8-10.8) K/uL Hgb 11.1 L (14.0-18.0) g/dL Hct 33.6 L (42-52) % Plt Count 257 (130-400) K/uL BMP 04/14/21 07:06 Sodium 143 Potassium 4.0 Chloride 114 H Carbon Dioxide 19 L BUN 30 H Creatinine 0.94 Glucose 187 H Calcium 8.6 Medications Administered Current Inpatient Medications Ascorbic Acid (Ascorbic Acid 500 Mg Tab) 500 mg PO BID ROL[facility] Stop: 05/08/21 08:59 Last Admin: 04/11/21 09:19 Dose: Not Given Documented by: Dextrose (Dextrose 50% 50 Ml Syringe) 25 - 50 ml IV UD PRN; Protocol PRN Reason: Hypoglycemia Protocol Stop: 05/08/21 14:45 Enteral Nutritional Formula (Peptamen 1.5 James 1,000 Ml Bag) 1,000 ml PO DAILY@1200 [facility]; Protocol Stop: 05/12/21 11:59 Last Admin: 04/14/21 13:34 Dose: 1,000 ml Documented by: Glucagon (Glucagon For Inj 1 Mg Vial) 1 mg SQ UD PRN; Protocol PRN Reason: Hypoglycemia Protocol Stop: 05/08/21 14:45 Glucose (Glucose 10 Tabs/Tube) 4 - 8 tabs PO UD PRN; Protocol PRN Reason: Hypoglycemia Protocol Stop: 05/08/21 14:45 Glucose (Glucose 40% Gel 15 Gm Tube) 15 - 30 gm PO UD PRN; Protocol PRN Reason: Hypoglycemia Protocol Stop: 05/08/21 14:45 Thiamine HCl 100 mg/ Syringe 10 mls @ 2 mls/min IV BID [facility]OL[facility] Stop: 05/11/21 13:29 Last Admin: 04/14/21 20:09 Dose: 2 mls/min Documented by: Ceftriaxone Sodium 1,000 mg/ (Dextrose) 60 mls @ 120 mls/hr IV Q24H [facility]; Protocol Stop: 04/19/21 10:59 Last Infusion: 04/14/21 13:35 Dose: Infused Documented by: Doxycycline Hyclate 100 mg/ (Dextrose) 110 mls @ 55 mls/hr IV Q12H [facility] Stop: 04/19/21 11:59 Last Infusion: 04/14/21 14:31 Dose: Infused Documented by: Dexamethasone 6 mg/ Syringe 1.5 mls @ 1 mls/min IV Q24H [facility] Stop: 05/12/21 08:59 Last Admin: 04/14/21 08:16 Dose: 1 mls/min Documented by: Insulin Aspart (Insulin Aspart 100 Units/Ml 3 Ml Pen) 0 units SC Q6 [facility]; Protocol Stop: 05/13/21 09:59 Last Admin: 04/14/21 18:23 Dose: 9 units Documented by: Insulin Glargine (Insulin Glargine Solostar 100 Units/Ml 3 Ml Pen) 10 units SQ DAILY [facility] Stop: 05/13/21 08:59 Last Admin: 04/14/21 10:18 Dose: 10 units Documented by: Metoprolol Tartrate (Metoprolol Tartrate 25 Mg Tab) 25 mg PO BID [facility] Stop: 05/11/21 20:59 Last Admin: 04/14/21 20:09 Dose: 25 mg Documented by: Miscellaneous (Carbohydrates For Hypoglycemia ) 15 - 30 gm PO UD PRN PRN Reason: Hypoglycemia Protocol Stop: 05/08/21 14:45 Olanzapine (Olanzapine 10 Mg/2.1 Ml Sdv) 5 mg IM Q6H PRN PRN Reason: severe agitation Stop: 05/13/21 03:11 Last Admin: 04/13/21 10:13 Dose: 5 mg Documented by: Sterile Water (Tube Feeding Water Flush) 250 ml GT Q4H [facility] Stop: 05/12/21 13:59 Last Admin: 04/14/21 20:09 Dose: 250 ml Documented by: Tramadol HCl (Tramadol Hcl 50 Mg Tablet) 50 mg PO Q4H PRN PRN Reason: moderate to severe pain 5-10 Stop: 05/08/21 08:23 Last Admin: 04/09/21 08:02 Dose: 50 mg Documented by: Vitamin D (Cholecalciferol 1,000 Units 25 Mcg Tab) 1,000 units PO QAM [facility] Stop: 05/08/21 08:59 Last Admin: 04/11/21 09:19 Dose: Not Given Documented by: Warfarin Sodium (Warfarin Sod 5 Mg Tab) 5 mg PO DAILY@1600 [facility] Stop: 05/07/21 15:59 Last Admin: 04/10/21 16:40 Dose: Not Given Documented by:
[2021-04-15] MEDS: OLANZapine 10 MG/2.1 ML SDV IM PRN ×2 (00:36→20:58)
[2021-04-15] MEDS: INSULIN ASPART 100 UNITS/ML 3 ML PEN SC SCH ×4 (00:58→17:27)
[2021-04-15] MEDS ORDERED: HALOPERIDOL LACTATE 5 MG/ML 1 ML VIAL IM STA ×4 (01:08→23:35)
[2021-04-15] MEDS: HALOPERIDOL LACTATE 5 MG/ML 1 ML VIAL ONE ×2 (01:25→07:20)
[2021-04-15] MEDS: TUBE FEEDING WATER FLUSH GT SCH ×5 (05:11→20:47)
[2021-04-15] MEDS: THIAMINE HCL 100 MG in SYRINGE 9 ML IV SCH ×2 (09:02→21:01)
[2021-04-15] MEDS: dexAMETHasone 6 MG in SYRINGE 0 ML IV SCH (09:02)
[2021-04-15] MEDS: METOPROLOL TARTRATE 25 MG TAB PO SCH ×2 (09:02→21:01)
--- NOTE | 2021-04-15 09:04 | XRay Report ---
XR chest 1V portable CLINICAL HISTORY: low o2 TECHNIQUE: Single frontal radiograph of the chest was obtained. Comparison: Comparison is made to chest one view 04/12/2021 FINDINGS: Lines and tubes are stable. Essentially stable appearance of right greater than left airspace opaciti es. Mediastinal silhouette is normal. No evidence of pleural effusion or pneumothorax. IMPRESSION: Essentially stable appearance of multifocal airspace opacities. ACT 112: Negative or not required by law. Electronically signed by: Wilian Sanchez M.D. 04/15/2021 9:03 AM
[2021-04-15 09:36] LABS: Hematocrit (blood only) 36.1 % (42-52); Hemoglobin 11.8 g/dL (14.0-18.0); Mean Corpuscular Hemoglobin 29.9 pg (25-34); Mean Corpuscular Hgb Conc 32.7 g/dL (32-36); Mean Corpuscular Volume 91.6 fL (80-100); Mean Platelet Volume 12.2 fL (7.4-10.4); Platelet Count 169 K/uL (130-400); RDW Coefficient of Variation 13.3 % (11.5-14.5); RDW Standard Deviation 45.1 fL (36.4-46.3); Red Blood Count 3.94 M/uL (4.7-6.1); White Blood Count 18.92 K/uL (4.8-10.8)
[2021-04-15 09:42] LABS: BUN Creatinine Ratio 34.2 (10-20); C Reactive Protein 5.37 mg/dl (0-0.29); Calcium 8.4 mg/dl (8.5-10.1); Creatinine Clr Calc Pharmacy 52.5 ml/min; Est GFR (African American) 87.3 ml/min; Est GFR (Non-African American) 75.3 ml/min; Magnesium 1.9 mg/dl (1.8-2.4); Potassium 4.3 mmol/L (3.5-5.1)
[2021-04-15] MEDS: INSULIN GLARGINE SOLOSTAR 100 UNITS/ML 3 ML PEN SQ SCH (09:43)
[2021-04-15 10:09] LABS: Phosphorus 2.1 mg/dl (2.5-4.9)
[2021-04-15] MEDS: cefTRIAXone SODIUM 1,000 MG in DEXTROSE 5% 50 ML IV SCH (12:26)
[2021-04-15] MEDS: DOXYCYCLINE HYCLATE 100 MG in DEXTROSE 5% 100 ML IV SCH (12:27)
[2021-04-15] MEDS: PEPTAMEN 1.5 CAL 1,000 ML BAG PO SCH (13:12)
[2021-04-15] MEDS ORDERED: SODIUM PHOSPHATE 3 MMOL/1 ML INFUSION IV STA (16:27)
[2021-04-15] MEDS ORDERED: SODIUM PHOSPHATE 9 MMOL in SODIUM CHLORIDE 0.9% 250 ML IV ONE (16:45)
[2021-04-15 17:09] LABS: INR 1.5 (0.9-1.1); Prothrombin Time 14.6 Seconds (9.0-12.0)
[2021-04-15] MEDS ORDERED: WARFARIN SOD 5 MG TAB PO ONE (18:00)
--- NOTE | 2021-04-15 19:32 | Hospitalist Progress Note ---
Date of Service April 15, 2021 Assessment & Plan (1) Sepsis: Plan: Appeared sepsis on morning on 04/12. Workup revealed progression of infiltrates and antibiotics and fluids were given for possible superimposed bacterial infection. Improved today. Resuscitated. (2) Acute and chronic respiratory failure with hypoxia: Plan: 2/2 covid pneumonia, see plan below. (3) Pneumonia due to COVID-19 virus: Plan: Worsened leukocytosis and delirium this am wtih slight worsening of hypoxia, now consistently requiring hi flow support. Progression of viral covid pneumonia vs bacterial superinfection. Cont decadron, Rocephin and doxycycline. Delirium has improved with treatment overnight. Tube feeds are also now at goal 45cc/hr. Cont vapotherm for support and OK to escalate to BIPAP if needed. CRP improved. (4) Hypernatremia: Plan: Cont free water flushes. Remains at high risk of dehydration with poor oral intake. Coresafe in place and flushes are being given. BMP daily. (5) Delirium: Plan: Multifactorial in setting of dementia. Still present. Etiology is multifactorial including recent steroids, hyperglycemia, hypernatremia, ?ongoing pain, ?urinary retention issues, covid infection and hospitalization with hypoxia. Cont to treat possible underlying contributing factors listed. Reorient PRN, Zyprexa PRN. Continue one-to-one neurological monitor observation (6) Pain: Plan: Cannot gauge pain with delirium. Cont Tylenol as tolerated with Tramadol PRN. (7) Acute kidney injury superimposed on CKD: Plan: Creatinine improved. Continue to encourage adequate p.o. hydration. (8) Acute urinary retention: Plan: appeared to pass the TOV, however, has had low urine output and has received straight caths with no spontaneous urine output. Vences replaced for accurate I/Os. (9) Elevated troponin: Plan: Likely related to demand ischemia in setting of EF 45%, CAD and known apical thrombus in setting of acute illness lasting for one week prior to arrival. No evidence of ACS at this time. (10) COPD (chronic obstructive pulmonary disease): Plan: Chronic, stable, no wheezing. (11) Vascular dementia: Plan: High risk for delirium with ongoing hypoxia, illness, hospitalization and recent steroids. (12) Left ventricular apical thrombus: Plan: INR 1.5 today will resume coumadin f (13) Coronary artery disease involving [place] heart without angina pectoris: Plan: chronic, appears stable. Cont medical management. (14) Malnutrition: Plan: Thin, elderly, not eating well. Tube feeds through NG tube are at goal. (15) Supratherapeutic INR: Plan: INR > 10, reversed wtih vitamin K. Warfarin was restarted and then has been held since warfarin has been restarted. Cont to hold. (16) DVT prophylaxis: Plan: warfarin DNR/DNI Dispo-uncertain at this time. Poor prognosis. Admission and Anticipated Discharge Date Admission Date: April 04, 2021 Subjective Patient was seen and examined for follow-up of shortness of breath due to COVID- 19 Lying in bed sleeping comfortable with one-to-one sitter at bedside as per staff patient was awake all night Denies any chest pain, palpitation, dizziness, shortness of breath. Review of Systems Review of Systems: All systems reviewed & are unremarkable except as noted in Subjective Physical Exam Physical Exam: General- No acute distress Head- atraumatic Eyes- PERRL, EOMI, ENT- oropharynx clear Neck- supple, no JVD Lungs-diminished breath sounds Heart- regular rhythm; no murmur Abdomen- normal bowel sounds, soft, nontender Extremities- no calf tenderness Neuro- sleeping PERRL with no unusual or open Skin- warm & dry Results & Data Results & Data ([facility]) Vital Signs (Past 12 Hours) Vital Signs Temp Pulse Pulse Resp BP Pulse Ox 04/15/21 18:54 36.9 C 95 H 22 114/84 87 L 04/15/21 16:03 36.7 C 80 20 112/86 94 04/15/21 15:54 72 04/15/21 12:35 79 20 104/68 93 04/15/21 10:39 93 04/15/21 09:49 91 04/15/21 09:15 109 H
[2021-04-16] MEDS: INSULIN ASPART 100 UNITS/ML 3 ML PEN SC SCH ×4 (00:09→18:00)
[2021-04-16] MEDS: DOXYCYCLINE HYCLATE 100 MG in DEXTROSE 5% 100 ML IV SCH ×2 (00:22→12:56)
[2021-04-16] MEDS: TUBE FEEDING WATER FLUSH GT SCH ×6 (00:41→20:32)
[2021-04-16] MEDS ORDERED: XOPENEX/ATROVENT 1.25mg/0.5MG NEB COMBO NEB STA ×2 (01:10→23:41)
[2021-04-16] MEDS ORDERED: METOPROLOL TARTRATE 1 MG/ML VIAL IV STA (01:11)
[2021-04-16] MEDS ORDERED: OLANZapine 10 MG/2.1 ML SDV IM STA (01:11)
[2021-04-16] MEDS ORDERED: LEVALBUTEROL 1.25MG/0.5ML NEB INH STA ×2 (01:22→23:45)
[2021-04-16] MEDS ORDERED: IPRATROPIUM BROMIDE NEB SOLN 0.02% 2.5 ML VIAL INH STA ×2 (01:22→23:45)
[2021-04-16] MEDS ORDERED: methylPREDNISolone 20 MG in SYRINGE 0 ML IV ONE (01:30)
[2021-04-16] MEDS ORDERED: MAGNESIUM SULFATE / D5W 1 GM/100 ML BAG IV ONE (01:30)
[2021-04-16] MEDS ORDERED: FUROSEMIDE INJ 20 MG/2 ML VIAL IV ONE (01:50)
[2021-04-16 02:13] LABS: HCO3 ABG 20 mmol/L (19-24); Oxygen Saturation ABG 90.7 % (90-95); PCO2 ABG 29 mmHg (35-46); PO2 ABG 61 mmHg (80-95); pH ABG 7.45 (7.35-7.45)
[2021-04-16 02:14] LABS: Allen Test POS (Pos)
[2021-04-16 07:23] LABS: Hematocrit (blood only) 35.8 % (42-52); Hemoglobin 12.2 g/dL (14.0-18.0); Mean Corpuscular Hemoglobin 30.6 pg (25-34); Mean Corpuscular Hgb Conc 34.1 g/dL (32-36); Mean Corpuscular Volume 89.7 fL (80-100); Mean Platelet Volume 11.9 fL (7.4-10.4); Platelet Count 128 K/uL (130-400); RDW Coefficient of Variation 13.2 % (11.5-14.5); RDW Standard Deviation 43.7 fL (36.4-46.3); Red Blood Count 3.99 M/uL (4.7-6.1); White Blood Count 22.32 K/uL (4.8-10.8)
[2021-04-16] MEDS: dexAMETHasone 6 MG in SYRINGE 0 ML IV SCH (07:32)
[2021-04-16] MEDS: THIAMINE HCL 100 MG in SYRINGE 9 ML IV SCH ×2 (07:33→20:23)
[2021-04-16] MEDS: METOPROLOL TARTRATE 25 MG TAB PO SCH ×2 (07:33→20:22)
[2021-04-16 07:54] LABS: BUN Creatinine Ratio 32.7 (10-20); Calcium 8.6 mg/dl (8.5-10.1); Creatinine Clr Calc Pharmacy 42.4 ml/min; Est GFR (African American) 69.3 ml/min; Est GFR (Non-African American) 59.8 ml/min; Potassium 4.6 mmol/L (3.5-5.1)
--- NOTE | 2021-04-16 08:27 | XRay Report ---
XR chest 1V portable HISTORY: 81 years-old Male sob acute shortness of breath COMPARISON: Chest radiograph 04/15/2021 TECHNIQUE: Portable AP view of the chest FINDINGS: Enteric tube courses below the diaphragm outside the [id number]. The cardiac silhouette is mildly enlarged. Interstitial coarsening with patchy multifocal bilateral airspace opacities redemonstrated, stable to slightly progressed. Degenerative changes of the shoulders and spine.. IMPRESSION: Stable to slight progression of the right greater than left bilateral airspace opacities suggestive of multifocal viral pneumonia. ACT 112: Negative or not required by law. The above report was generated using voice recognition software. It may contain grammatical, syntax o r spelling errors. Electronically signed by: Gerson Cortez M.D. 04/16/2021 8:26 AM
[2021-04-16] MEDS: INSULIN GLARGINE SOLOSTAR 100 UNITS/ML 3 ML PEN SQ SCH (09:15)
--- NOTE | 2021-04-16 11:50 | Hospitalist Progress Note ---
Date of Service April 16, 2021 Assessment & Plan (1) Acute and chronic respiratory failure with hypoxia: Plan: 2/2 covid pneumonia, possibly superimposed bacterial pneumonia after sepsis picture on 04/12. Would continue abx for total 7 days. Cont decadron for now. This may be contributing to leukocytosis seen on CBC. Cont to trend. (2) Sepsis: Plan: Appeared sepsis on morning on 04/12. Workup revealed progression of infiltrates and antibiotics and fluids were given for possible superimposed bacterial infection. He was resuscitated same day with IVF and Rocephin/doxy added. Decadron was readded to regimen that day also, having been held for delirium. Cont current therapy. (3) Pneumonia due to COVID-19 virus: Plan: Continue on vapotherm with ongoing decadron, Rocephin and doxycycline. Tube feeds are also now at goal 45cc/hr. May be able to restart oral diet today. Speech path consulted to evaluate. Cont vapotherm for support and OK to escalate to BIPAP if needed. Wean oxygen as tolerated. (4) Hypernatremia: Plan: resolved. Cont free water flushes. Remains at high risk of dehydration with poor oral intake. Coresafe in place and flushes are being given. BMP daily. (5) Delirium: Plan: Resolved this morning. Multifactorial in setting of dementia. Etiology is multifactorial including recent steroids, hyperglycemia, hypernatremia, ?ongoing pain, ?urinary retention issues, covid infection and hospitalization with hypoxia. Cont to treat possible underlying contributing factors listed. Reorient PRN, Zyprexa PRN. Continue one-to-one neurological monitor observation for now. (6) Pain: Plan: Some lower abdominal pain today-he has reported this earlier in the admission, also. At that time a CT abd/pel was performed and unrevealing for cause of pain. Pain resolved then returned. KUB did not reveal an ileus or obstruction. Toda he is reporting sharp pain that started this morning in his lower abdomen again. With soft abdomen on exam, tolerating TFs and water and recent BM this morning, this is all reassuring enough to palliate with medications and continue to monitor this closely. Cont Tylenol as tolerated with Tramadol PRN. Daughter and his nurse are aware. (7) Acute kidney injury superimposed on CKD: Plan: Creatinine improved. Continue to encourage adequate p.o. hydration. (8) Acute urinary retention: Plan: appeared to pass the TOV, however, has had low urine output and has received straight caths with no spontaneous urine output. Vences replaced for accurate I/Os. (9) Elevated troponin: Plan: Likely related to demand ischemia in setting of EF 45%, CAD and known apical thrombus in setting of acute illness lasting for one week prior to arrival. No evidence of ACS at this time. (10) COPD (chronic obstructive pulmonary disease): Plan: Chronic, stable, no wheezing. (11) Vascular dementia: Plan: High risk for delirium with ongoing hypoxia, illness, hospitalization and recent steroids. (12) Left ventricular apical thrombus: Plan: Coumadin given yesterday but will now be placed on hold with his INR decrease and tendency to become supratherapeutic. Will give therapeutic Lovenox at this point. High risk for PE in setting of covid infection. (13) Coronary artery disease involving [place] heart without angina pectoris: Plan: chronic, appears stable. Cont medical management. (14) Malnutrition: Plan: Thin, elderly, not eating well. Tube feeds through NG tube are at goal. Attempt to transition to oral food today. (15) Supratherapeutic INR: Plan: INR > 10, reversed wtih vitamin K. Warfarin was restarted and then has been held since warfarin has been restarted. Cont to hold. (16) DVT prophylaxis: Plan: Lovenox DNR/DNI Dispo-appears improved but disposition is still uncertain. He is oriented and wants to continue with all current therapies which we will do. I updated his daughter by phone and all questions were answered. Gabriela [facility]aredes DO [facility] and Anticipated Discharge Date Admission Date: April 04, 2021 Subjective 81 yo M presents with covid pneumonia. Intermittent delirium overnight, remains on Vapotherm, required antipsychotic to be given. Hypoxia appears to be improved. CXR overnight reveals stable pneumonia Mental status has improved- he is oriented to person and place He states that he is not suffering and is resolved to continue with treatment He has the corsafe in place and bedside swallow study went well this am. Speech path requested to evaluate his safety to swallow. Reports some sharp pain in lower abdomen Had a BM this am. Vences in place, urine is normal-appearing. Reportedly walked independently to bedside chair this morning. Review of Systems Review of Systems: All systems were reviewed and negative except as indicated in subjective above. Physical Exam Physical Exam: CONSTITUTIONAL: thin, frail, vitals as above, generally ill- appearing, NAD EYES: normal conjunctivae, no scleral icterus ENT: external ear and nose normal, vapotherm in place. NG tube in place. NECK: trachea midline RESPIRATORY: clear throughout, no rales or wheezes, slight increased respiratory effort. Upper airway sounds/congestion noted. CARDIOVASCULAR: regular rate and rhythm, S1 and 2 heard without murmurs, gallops or rubs, no JVD, no peripheral edema CHEST: inspection of chest was normal GASTROINTESTINAL: soft, nontender, ND, no guarding MUSCULOSKELETAL: Generalized weakness, moves all extremities equally. No gross focal deficits. SKIN: warm and dry NEUROLOGIC: No gross focal deficits. Results & Data Results & Data ([facility]) Vital Signs (Past 12 Hours) Vital Signs Temp Pulse Pulse Resp BP BP Pulse Ox 04/16/21 11: 36.6 C 103 H 30 H 130/85 97 04/16/21 09:45 92 04/16/21 07:14 37.2 C 107 H 24 109/68 93 04/16/21 03:54 36.8 C 109 H 22 116/77 91 04/16/21 01:34 129 H 174/100 H 04/16/21 01:03 37.4 C 129 H 22 174/100 H 91 Laboratory Results Short CBC 04/16/21 Range/Units 06:55 WBC 22.32 H (4.8-10.8) K/uL Hgb 12.2 L (14.0-18.0) g/dL Hct 35.8 L (42-52) % Plt Count 128 L (130-400) K/uL BMP 04/16/21 06:55 Sodium 133 L Potassium 4.6 Chloride 102 Carbon Dioxide 21 BUN 38 H Creatinine 1.15 Glucose 260 H Calcium 8.6 Diagnostic Findings Chest X-Ray 04/16/21 01:11 XR chest 1V portable HISTORY: 81 years-old Male sob acute shortness of breath COMPARISON: Chest radiograph 04/15/2021 TECHNIQUE: Portable AP view of the chest FINDINGS: Enteric tube courses below the diaphragm outside the [id number]. The cardiac silhouette is mildly enlarged. Interstitial coarsening with patchy multifocal bilateral airspace opacities redemonstrated, stable to slightly progressed. Degenerative changes of the shoulders and spine.. IMPRESSION: Stable to slight progression of the right greater than left bilateral airspace opacities suggestive of multifocal viral pneumonia. ACT 112: Negative or not required by law. The above report was generated using voice recognition software. It may contain grammatical, syntax or spelling errors. Electronically signed by: Gerson Cortez M.D. 04/16/2021 8:26 AM Medications Administered Current Inpatient Medications Ascorbic Acid (Ascorbic Acid 500 Mg Tab) 500 mg PO BID [facility] Stop: 05/08/21 08:59 Last Admin: 04/11/21 09:19 Dose: Not Given Documented by: Dextrose (Dextrose 50% 50 Ml Syringe) 25 - 50 ml IV UD PRN; Protocol PRN Reason: Hypoglycemia Protocol Stop: 05/08/21 14:45 Enoxaparin Sodium (Enoxaparin 1 Mg/Kg) 1 mg SQ Q12H [facility] Stop: 05/16/21 11:59 Enteral Nutritional Formula (Peptamen 1.5 James 1,000 Ml Bag) 1,000 ml PO DAILY@1200 [facility]; Protocol Stop: 05/12/21 11:59 Last Admin: 04/15/21 13:12 Dose: 1,000 ml Documented by: Glucagon (Glucagon For Inj 1 Mg Vial) 1 mg SQ UD PRN; Protocol PRN Reason: Hypoglycemia Protocol Stop: 05/08/21 14:45 Glucose (Glucose 10 Tabs/Tube) 4 - 8 tabs PO UD PRN; Protocol PRN Reason: Hypoglycemia Protocol Stop: 05/08/21 14:45 Glucose (Glucose 40% Gel 15 Gm Tube) 15 - 30 gm PO UD PRN; Protocol PRN Reason: Hypoglycemia Protocol Stop: 05/08/21 14:45 Guaifenesin (Guaifenesin 600 Mg Tabcr) 600 mg PO Q12 [facility] Stop: 05/16/21 20:59 Thiamine HCl 100 mg/ Syringe 10 mls @ 2 mls/min IV BID [facility] Stop: 05/11/21 13:29 Last Admin: 04/16/21 07:33 Dose: 2 mls/min Documented by: Doxycycline Hyclate 100 mg/ (Dextrose) 110 mls @ 55 mls/hr IV Q12H [facility] Stop: 04/19/21 11:59 Last Infusion: 04/16/21 02:28 Dose: Infused Documented by: Dexamethasone 6 mg/ Syringe 1.5 mls @ 1 mls/min IV Q24H [facility] Stop: 05/12/21 08:59 Last Admin: 04/16/21 07:32 Dose: 1 mls/min Documented by: Ceftriaxone Sodium 1,000 mg/ (Dextrose) 50 mls @ 100 mls/hr IV Q24H [facility]; Protocol Stop: 04/19/21 10:59 Insulin Aspart (Insulin Aspart 100 Units/Ml 3 Ml Pen) 0 units SC Q6 [facility]; Protocol Stop: 05/13/21 09:59 Last Admin: 04/16/21 06:12 Dose: 9 units Documented by: Insulin Glargine (Insulin Glargine Solostar 100 Units/Ml 3 Ml Pen) 10 units SQ DAILY [facility] Stop: 05/13/21 08:59 Last Admin: 04/16/21 09:15 Dose: 10 units Documented by: Metoprolol Tartrate (Metoprolol Tartrate 25 Mg Tab) 25 mg PO BID [facility] Stop: 05/11/21 20:59 Last Admin: 04/16/21 07:33 Dose: 25 mg Documented by: Miscellaneous (Carbohydrates For Hypoglycemia ) 15 - 30 gm PO UD PRN PRN Reason: Hypoglycemia Protocol Stop: 05/08/21 14:45 Olanzapine (Olanzapine 10 Mg/2.1 Ml Sdv) 5 mg IM Q6H PRN PRN Reason: severe agitation Stop: 05/13/21 03:11 Last Admin: 04/15/21 20:58 Dose: 5 mg Documented by: Sterile Water (Tube Feeding Water Flush) 250 ml GT Q4H [facility] Stop: 05/12/21 13:59 Last Admin: 04/16/21 07:33 Dose: 250 ml Documented by: Tramadol HCl (Tramadol Hcl 50 Mg Tablet) 50 mg PO Q4H PRN PRN Reason: moderate to severe pain 5-10 Stop: 05/08/21 08:23 Last Admin: 04/09/21 08:02 Dose: 50 mg Documented by: Vitamin D (Cholecalciferol 1,000 Units 25 Mcg Tab) 1,000 units PO QAM [facility] Stop: 05/08/21 08:59 Last Admin: 04/11/21 09:19 Dose: Not Given Documented by: Warfarin Sodium (Warfarin Sod 5 Mg Tab) 5 mg PO DAILY@1600 [facility] Stop: 05/07/21 15:59 Last Admin: 04/10/21 16:40 Dose: Not Given Documented by:
[2021-04-16] MEDS ORDERED: ENOXAPARIN INJ 60 MG/0.6 ML SYR SQ SCH (12:30)
[2021-04-16] MEDS: cefTRIAXone SODIUM 1,000 MG in DEXTROSE 5% 50 ML IV SCH (12:56)
[2021-04-16] MEDS: OLANZapine 10 MG/2.1 ML SDV IM PRN (13:06)
[2021-04-16] MEDS: PEPTAMEN 1.5 CAL 1,000 ML BAG PO SCH (13:47)
--- NOTE | 2021-04-16 14:46 | Pulmonology Progress Note ---
Date of Service April 16, 2021 Assessment & Plan (1) Acute and chronic respiratory failure with hypoxia: (2) Pneumonia due to COVID-19 virus: (3) COPD (chronic obstructive pulmonary disease): Plan: Chest x-ray 04/12/2021 personally reviewed: Portable film, good inspiratory effort, bilateral costophrenic and cardiophrenic angles are clean Alveolar opacities appreciated bilaterally more on the right side, inguinal hernia Opacities have worsened since the time of presentation --Acute hypoxic respiratory failure Secondary to COVID-19 pneumonia COVID-19 PCR positive 04/04/2021 Procalcitonin 1.02 CRP 24.9 BNP 3892 Continue with O2 supplementation to keep oxygen saturation between 90-92%. Awake proning will be helpful Continue with incentive spirometry Continue with flutter valve. Recommend patient to be kept euvolemic to negative balance Plan: -1067 . Urine output 2550 CXR from today shows infiltrates b/l more on the right side. No change to minimal improvement from before. Continue 7 days of antibiotics continue total 10 days of dexamethasone. Would NOT recommend prolong steroid use Overall prognosis is guarded given the patient's mental status and severe pneumonia Unfortunately there is not much to offer from pulmonary perspective except pulmonary toileting and oxygen. Try to keep patient on the left side. No further recommendation from pulmonary perspective. Will sign off again. Please call directly with any questions Case was discussed with RN Please note the above document was generated using voice recognition software. It may contain grammatical, syntax or spelling errors.Any formal questions or concerns about the content, text or information contained within the body of this dictation should be directly addressed to the provider for clarification. Admission and Anticipated Discharge Date Admission Date: April 04, 2021 Subjective Patient seen and examined at bedside. No acute distress. As per the nurse patient had an episode where he desaturated to 84%. At the time of examination patient was saturating 96-97% on 11 L nasal cannula I went down to 9 L and he was still saturating 93-94% Patient is a very poor historian. On answering simple questions he denied any headache, no nausea or vomiting Denies any cough, no chest pain Review of Systems Review of Systems: Unobtainable due to mental health condition Physical Exam Physical Exam: Constitutional: No acute distress, frail-appearing HEENT: EOMI, PERRLA Respiratory system: Decreased air entry bilaterally, no wheeze, no crackle positive crackles bilateral lower lobes CVS: S1-S2 positive Abdomen: Soft, nontender, nondistended, positive bowel sounds x4 Extremities: +2 pulses bilaterally radialis/ dorsalis pedis, no cyanosis, no edema Neuro: Awake alert oriented only to self Psych: Somnolent G/U: Positive Vences Skin: no rashes, warm and dry Lymphatic: no cervical or axillary lymphadenopathy Results & Data Results & Data ([facility]) Vital Signs (Past 12 Hours) Vital Signs Temp Pulse Pulse Pulse Resp BP Pulse Ox 04/16/21 14:34 88 L 04/16/21 14:20 85 22 94 04/16/21 13:00 108 H 40 H 96 04/16/21 11: 36.6 C 103 H 30 H 130/85 97 04/16/21 09:45 92 04/16/21 08:00 112 H 04/16/21 07:14 37.2 C 107 H 24 109/68 93 04/16/21 03:54 36.8 C 109 H 22 116/77 91 04/16/21 06:55 04/16/21 06:55 PG Care Time/CCT Total # of Minutes Spent Total Time Spent with Patient: Total time spent is greater than 50% in coordination of care (as documented) at patient's floor/unit and/or counseling patient: Coding Level of Care Code 62208 Subseq Hosp Care Lvl 2 Diagnoses Acute and chronic respiratory failure with hypoxia J96.21 Pneumonia due to COVID-19 virus U07.1; J12.82 COPD (chronic obstructive pulmonary disease) J44.9
--- NOTE | 2021-04-16 15:09 | XRay Report ---
XR chest 1V portable HISTORY: 81 years-old Male dropping sats acute hypoxia COMPARISON: Chest radiograph of same day at 1:42 AM TECHNIQUE: Portable AP view the chest FINDINGS: Cardiomediastinal and hilar silhouettes are unchanged. Enteric tube courses below the diaphragm outsi de the [id number]. No pneumothorax. Interstitial coarsening with patchy multifocal airspace opacit ies are again noted, not significant change from comparison. No large pleural effusion. No acute frac ture. IMPRESSION: No significant change of the right greater than left opacities compatible with multifocal pneumonia. ACT 112: Negative or not required by law. The above report was generated using voice recognition software. It may contain grammatical, syntax o r spelling errors. Electronically signed by: Gerson Cortez M.D. 04/16/2021 3:08 PM
[2021-04-16] MEDS: guaiFENesin 600 MG TABCR PO SCH (20:23)
[2021-04-17] MEDS: DOXYCYCLINE HYCLATE 100 MG in DEXTROSE 5% 100 ML IV SCH ×2 (00:40→12:05)
[2021-04-17] MEDS: ENOXAPARIN INJ 60 MG/0.6 ML SYR SQ SCH ×2 (00:41→12:06)
[2021-04-17] MEDS: INSULIN ASPART 100 UNITS/ML 3 ML PEN SC SCH ×3 (00:41→12:08)
[2021-04-17] MEDS: TUBE FEEDING WATER FLUSH GT SCH ×6 (00:53→20:30)
[2021-04-17] MEDS: OLANZapine 10 MG/2.1 ML SDV IM PRN ×2 (02:22→11:50)
--- NOTE | 2021-04-17 06:03 | Communication Note ---
Date of Service: April 17, 2021 Made aware by RN of increased patient agitation resulting in patient pulling out Coresafe feeding tube. Hold off on feeding tube reinsertion until patient evaluated by AM provider when possible readdressing of goals of care. Patient with nightly agitation requiring chemical and pharmacologic restraints since confinement for severe COVID-19 pneumonia Possible transition to comfort care has been discussed by Palliative Care with family if current medical management perceived to add only to patient suffering/struggle.
[2021-04-17 08:57] LABS: Creatinine Clr Calc Pharmacy 47.1 ml/min; Est GFR (African American) 84.1 ml/min; Est GFR (Non-African American) 72.5 ml/min
[2021-04-17] MEDS: guaiFENesin 600 MG TABCR PO SCH (09:35)
[2021-04-17] MEDS: dexAMETHasone 6 MG in SYRINGE 0 ML IV SCH (09:35)
[2021-04-17] MEDS: METOPROLOL TARTRATE 25 MG TAB PO SCH (09:36)
[2021-04-17] MEDS: THIAMINE HCL 100 MG in SYRINGE 9 ML IV SCH (09:37)
[2021-04-17] MEDS: INSULIN GLARGINE SOLOSTAR 100 UNITS/ML 3 ML PEN SQ SCH (10:11)
[2021-04-17] MEDS: cefTRIAXone SODIUM 1,000 MG in DEXTROSE 5% 50 ML IV SCH (10:46)
[2021-04-17] MEDS: PEPTAMEN 1.5 CAL 1,000 ML BAG PO SCH (12:07)
--- NOTE | 2021-04-17 13:26 | Palliative Care Progress Note ---
Date of Service April 17, 2021 Assessment & Plan (1) Palliative care encounter: Plan: I met with Dylan Tello' in the room. He had a 1:1 in the room with him. He had pulled his coresafe out last night and today was increasingly agitated. He had mentioned a few times that he wanted to and was tired. I saw him and he was having some mixed conversation with some garbled speech, but overall, I could understand his words. He indicated he was tired and we talked about him being kept comfortable. I called his daughter Mary at [phone] and arranged for her to see him over zoom at 1700 in order to assist with goals of care and decision making. I received notification from his RN around 1600 that he had a gold change in condition and was experiencing breathing pattern changes with some agonal breathing, tachypnea, tachycardia and was less responsive. I did call his daughter Mary via zoom and based on our conversation, moved towards a full comfort measures transition. All non essential medications were discontinued along with all other aggressive treatment. Morphine, Robinul, and Ativan were ordered. I did receive clearance from Valorie Yo for two visitors to be at his bedside in the covid unit for a one time visit all with appropriate PPE on. Maria T RN supervisor inspecting aware and dialysis patient care technician notified. Palliative will follow. Anticipate patient has hours to a day or so of life remaining. Dr. Jerrod avery. (2) Altered mental status: (3) Weakness: (4) COVID-19: (5) Agitation: Admission and Anticipated Discharge Date Admission Date: April 04, 2021 Subjective Patient was seen numerous times today. He pulled out his coresafe overnight. He was able to have conversation with some coherent words earlier in the day. Around 2PM he started to have some breathing pattern changes, became less responsive and had audible secretions noted. See A/P for details Review of Systems Review of Systems: [place] System Assessment Scale: by observation: Pain: 1/3 SOB: 3/3 Anxiety: 2/3 Palliative Performance Scale: 10% Physical Exam Constitutional: + ill appearing and + frail appearing ENMT: Mouth: + dry oral mucous membranes Respiratory: + uses accessory muscles and + cough Auscultation: + diminished lung sounds and + rhonchi Cardiovascular: Rate/Rhythm: + tachycardic Heart Sounds: normal S1 and normal S2 Extremities: normal capillary refill; no edema Gastrointestinal (Abdomen): Inspection/Auscultation: abdomen normal to inspection Percussion/Palpation: abdomen soft Skin: + ecchymosis and + pallor Neurologic: + obtunded Psychiatric: Insight: + poor insight Judgement: + poor judgement Results & Data ([facility]) Vital Signs (Past 12 Hours) Vital Signs Temp Pulse Resp BP Pulse Ox 04/17/21 11:04 36.6 C 118 H 28 H 132/87 95 04/17/21 07:00 36.3 C L 109 H 28 H 131/80 95 04/17/21 03:17 36.6 C 111 H 26 H 145/96 H 94 PG Care Time/CCT Total # of Minutes Spent Total Time Spent with Patient: Total time spent is greater than 50% in coordination of care (as documented) at patient's floor/unit and/or counseling patient: 65 minutes with >50% of that time spent assessing the patient, discussing goals of care, assessing symptom management needs and collaborating with IDT Coding Level of Care Code 88617 Subseq Hosp Care Lvl 3 Diagnoses Palliative care encounter Z51.5 Altered mental status R41.82 Weakness R53.1 COVID-19 U07.1 Agitation R45.1 Time Spent (min) 65
--- NOTE | 2021-04-17 15:45 | Hospitalist Progress Note ---
Date of Service April 17, 2021 Assessment & Plan (1) Acute and chronic respiratory failure with hypoxia: Plan: 2/2 covid pneumonia, possibly superimposed bacterial pneumonia after sepsis picture on 04/12. Would continue abx for total 7 days. Cont decadron for now. Condition has been worsening with increasing requirements of oxygen and decreasing response Appreciate pulmonary input and recommendation Palliative care encounter Reevaluation by palliative care today and will have a Zoom meeting with the family members for further recommendation (2) Sepsis: Plan: Appeared sepsis on morning on 04/12. Workup revealed progression of infiltrates and antibiotics and fluids were given for possible superimposed bacterial infection. He was resuscitated same day with IVF and Rocephin/doxy added. Decadron was readded to regimen that day also, having been held for delirium. Cont current therapy Clinically not any better. (3) Pneumonia due to COVID-19 virus: Plan: Continue on vapotherm with ongoing decadron, Rocephin and doxycycline. Tube feeds are also now at goal 45cc/hr.-pulled out NG tube feeding catheter on 04/16/2021 Speech path consulted to evaluate-appreciate input and recommendation of soft diet Cont vapotherm for support and OK to escalate to BIPAP if needed. Prognosis remains poor (4) Hypernatremia: Plan: Resolved. Cont free water flushes. Remains at high risk of dehydration with poor oral intake. (5) Delirium: Plan: Resolved this morning. Multifactorial in setting of dementia. Etiology is multifactorial including recent steroids, hyperglycemia, hypernatremia, ?ongoing pain, ?urinary retention issues, covid infection and hospitalization with hypoxia. Cont to treat possible underlying contributing factors listed. Reorient PRN, Zyprexa PRN. Continue one-to-one neurological monitor observation for now. (6) Pain: Plan: Some lower abdominal pain today-he has reported this earlier in the admission, also. At that time a CT abd/pel was performed and unrevealing for cause of pain. Pain resolved then returned. KUB did not reveal an ileus or obstruction. Cont Tylenol as tolerated with Tramadol PRN. Daughter and his nurse are aware. Denies any more pain during examination did not want to have any medications for that (7) Acute kidney injury superimposed on CKD: Plan: Creatinine improved. Continue to encourage adequate p.o. hydration. (8) Acute urinary retention: Plan: appeared to pass the TOV, however, has had low urine output and has received straight caths with no spontaneous urine output. Vences replaced for accurate I/Os. (9) Elevated troponin: Plan: Likely related to demand ischemia in setting of EF 45%, CAD and known apical thrombus in setting of acute illness lasting for one week prior to arrival. No evidence of ACS at this time. (10) COPD (chronic obstructive pulmonary disease): Plan: Chronic, stable, no wheezing. Complicating the Covid situation (11) Vascular dementia: Plan: High risk for delirium with ongoing hypoxia, illness, hospitalization and recent steroids. (12) Left ventricular apical thrombus: Plan: Coumadin given yesterday but will now be placed on hold with his INR decrease and tendency to become supratherapeutic. Will give therapeutic Lovenox at this point. High risk for PE in setting of covid infection. Overall prognosis is extremely poor (13) Coronary artery disease involving [place] heart without angina pectoris: Plan: chronic, appears stable. Cont medical management. (14) Malnutrition: Plan: Thin, elderly, not eating well. Tube feeds through NG tube are at goal. Attempt to transition to oral food today. (15) Supratherapeutic INR: Plan: INR > 10, reversed wtih vitamin K. Warfarin was restarted and then has been held since warfarin has been restarted. Cont to hold. (16) DVT prophylaxis: Plan: Lovenox DNR/DNI Dispo-appears improved but disposition is still uncertain. He is oriented and wants to continue with all current therapies which we will do. I updated his daughter by phone and all questions were answered. 03/15/2021-condition has been worse since last night and he pulled out his NG tube Has been more shortness of breath and requiring more oxygen to maintain saturation Elected to go for comfort care from this point Palliative care involved Admission and Anticipated Discharge Date Admission Date: April 04, 2021 Subjective 04/17/2021 The patient was seen and examined in telemetry unit and in the Covid room His condition has been deteriorating with increasing requirements of oxygen and generalized worsening of his condition He pulled out his NG tube for feeding and was advised to have soft diet as per the speech therapist Palliative care is going to reevaluate for possible comfort care down the line Review of Systems Review of Systems: All systems reviewed and are unremarkable except as noted below Respiratory: Moderate to severe shortness of breath at rest Physical Exam Physical Exam: Lying in bed with acute distress secondary to shortness of breath Constitutional: average body habitus Eyes: PERRL, conjunctivae normal, anicteric sclerae ENMT: external ear and nose normal, oropharynx normal Neck: trachea midline, no thyromegaly Respiratory: + respiratory distress, + labored breathing, + retractions and + cough Auscultation: + diminished lung sounds, + crackles and + wheezes Cardiovascular: Rate/Rhythm: regular rate, regular rhythm and + tachycardic Heart Sounds: normal S1 and normal S2; no murmur Extremities: no edema Gastrointestinal (Abdomen): Inspection/Auscultation: normal bowel sounds; abdomen not distended Musculoskeletal: No acute arthritis in any joint Neurologic: Alert, awake. Pleasantly confused. Extremely weak and lethargic Lymphatic: no cervical or axillary lymphadenopathy Results & Data Results & Data ([facility]) Vital Signs (Past 12 Hours) Vital Signs Temp Pulse Resp BP Pulse Ox 04/17/21 11:04 36.6 C 118 H 28 H 132/87 95 04/17/21 07:00 36.3 C L 109 H 28 H 131/80 95 Laboratory Results [facility] 04/17/21 07:36 Creatinine 0.98 Medications Administered Current Inpatient Medications Ascorbic Acid (Ascorbic Acid 500 Mg Tab) 500 mg PO BID ROLY Stop: 05/08/21 08:59 Last Admin: 04/11/21 09:19 Dose: Not Given Documented by: Dextrose (Dextrose 50% 50 Ml Syringe) 25 - 50 ml IV UD PRN; Protocol PRN Reason: Hypoglycemia Protocol Stop: 05/08/21 14:45 Enoxaparin Sodium (Enoxaparin Inj 60 Mg/0.6 Ml Syr) 60 mg SQ Q12H ROLY Stop: 05/17/21 00:00 Last Admin: 04/17/21 12:06 Dose: 60 mg Documented by: Enteral Nutritional Formula (Peptamen 1.5 James 1,000 Ml Bag) 1,000 ml PO DAILY@1200 ROLY; Protocol Stop: 05/12/21 11:59 Last Admin: 04/17/21 12:07 Dose: Not Given Documented by: Glucagon (Glucagon For Inj 1 Mg Vial) 1 mg SQ UD PRN; Protocol PRN Reason: Hypoglycemia Protocol Stop: 05/08/21 14:45 Glucose (Glucose 10 Tabs/Tube) 4 - 8 tabs PO UD PRN; Protocol PRN Reason: Hypoglycemia Protocol Stop: 05/08/21 14:45 Glucose (Glucose 40% Gel 15 Gm Tube) 15 - 30 gm PO UD PRN; Protocol PRN Reason: Hypoglycemia Protocol Stop: 05/08/21 14:45 Guaifenesin (Guaifenesin 600 Mg Tabcr) 600 mg PO Q12 [facility]OLY Stop: 05/16/21 20:59 Last Admin: 04/17/21 09:35 Dose: Not Given Documented by: Thiamine HCl 100 mg/ Syringe 10 mls @ 2 mls/min IV BID ROLY Stop: 05/11/21 13:29 Last Admin: 04/17/21 09:37 Dose: 2 mls/min Documented by: Doxycycline Hyclate 100 mg/ (Dextrose) 110 mls @ 55 mls/hr IV Q12H [facility] Stop: 04/19/21 11:59 Last Infusion: 04/17/21 14:09 Dose: Infused Documented by: Dexamethasone 6 mg/ Syringe 1.5 mls @ 1 mls/min IV Q24H ROLY Stop: 05/12/21 08:59 Last Admin: 04/17/21 09:35 Dose: 1 mls/min Documented by: Ceftriaxone Sodium 1,000 mg/ (Dextrose) 50 mls @ 100 mls/hr IV Q24H ROLY; Pro tocol Stop: 04/19/21 10:59 Last Infusion: 04/17/21 11:57 Dose: Infused Documented by: Insulin Aspart (Insulin Aspart 100 Units/Ml 3 Ml Pen) 0 units SC Q6 [facility]; Protocol Stop: 05/13/21 09:59 Last Admin: 04/17/21 12:08 Dose: 1 units Documented by: Insulin Glargine (Insulin Glargine Solostar 100 Units/Ml 3 Ml Pen) 10 units SQ DAILY ROLY Stop: 05/13/21 08:59 Last Admin: 04/17/21 10:11 Dose: 10 units Documented by: Metoprolol Tartrate (Metoprolol Tartrate 25 Mg Tab) 25 mg PO BID [facility] Stop: 05/11/21 20:59 Last Admin: 04/17/21 09:36 Dose: Not Given Documented by: Miscellaneous (Carbohydrates For Hypoglycemia ) 15 - 30 gm PO UD PRN PRN Reason: Hypoglycemia Protocol Stop: 05/08/21 14:45 Olanzapine (Olanzapine 10 Mg/2.1 Ml Sdv) 5 mg IM Q6H PRN PRN Reason: agitation/restlessness Stop: 05/13/21 03:11 Last Admin: 04/17/21 11:50 Dose: 5 mg Documented by: Sterile Water (Tube Feeding Water Flush) 250 ml GT Q4H [facility] Stop: 05/12/21 13:59 Last Admin: 04/17/21 12:14 Dose: Not Given Documented by: Tramadol HCl (Tramadol Hcl 50 Mg Tablet) 50 mg PO Q4H PRN PRN Reason: moderate to severe pain 5-10 Stop: 05/08/21 08:23 Last Admin: 04/09/21 08:02 Dose: 50 mg Documented by: Vitamin D (Cholecalciferol 1,000 Units 25 Mcg Tab) 1,000 units PO QAM [facility] Stop: 05/08/21 08:59 Last Admin: 04/11/21 09:19 Dose: Not Given Documented by: Warfarin Sodium (Warfarin Sod 5 Mg Tab) 5 mg PO DAILY@1600 [facility] Stop: 05/07/21 15:59 Last Admin: 04/10/21 16:40 Dose: Not Given Documented by:
[2021-04-17] MEDS ORDERED: MoRPHine SULFATE 2 MG/ML CARP IV PRN (16:51)
[2021-04-17] MEDS: GLYCOPYRROLATE 0.2 MG/ML VIAL IV PRN (17:02)
[2021-04-17] MEDS: MoRPHine SULFATE 2 MG/ML CARP IV PRN ×2 (17:32→22:09)
[2021-04-17] MEDS ORDERED: LORazepam 0.5 MG/1 ML VIAL IV PRN (20:41)
[2021-04-18] MEDS: MoRPHine SULFATE 2 MG/ML CARP IV PRN ×2 (00:45→02:48)
[2021-04-18] MEDS: GLYCOPYRROLATE 0.2 MG/ML VIAL IV PRN ×4 (02:51→17:36)
[2021-04-18] MEDS: LORazepam 1 MG/2 ML VIAL IV PRN ×2 (03:24→07:39)
[2021-04-18] MEDS: MoRPHine SULFATE 4 MG/ML 1 ML CARP\\VIAL IV PRN ×2 (06:37→07:37)
[2021-04-18] MEDS ORDERED: STAT IV Infusion **Titration per Protocol STA (12:39)
--- NOTE | 2021-04-18 12:58 | Palliative Care Progress Note ---
Date of Service April 18, 2021 Assessment & Plan (1) Palliative care encounter: Plan: Patient remains on FLOAT REMOVER, actually was surprised that he survived the night. He has been utilizing Ativan and Morphine for comfort medications. After seeing the patient and discussing with nursing, patient to be placed on an IV Morphine infusion, which has been initiated. Patient does have Robinul now for secretions ordered. Palliative will follow. Anticipate patient has hours to a day or so of life remaining. Dr. Elder aware. (2) Altered mental status: (3) Weakness: (4) COVID-19: (5) Agitation: Admission and Anticipated Discharge Date Admission Date: April 04, 2021 Subjective Patient was seen numerous times today. He is not responsive today, experiencing audible secretions, moaning and breathing pattern changes. Some mottling and rothman undertones noted on exam. Remains on FLOAT REMOVER. See A/P for details Review of Systems Review of Systems: [place] System Assessment Scale: by observation: Pain: 1/3 SOB: 3/3 Anxiety: 2/3 Palliative Performance Scale: 10% Physical Exam Constitutional: + ill appearing and + frail appearing ENMT: Mouth: + dry oral mucous membranes Respiratory: + uses accessory muscles and + cough Auscultation: + diminished lung sounds and + rhonchi Cardiovascular: Rate/Rhythm: + tachycardic Heart Sounds: normal S1 and normal S2 Extremities: normal capillary refill; no edema Gastrointestinal (Abdomen): Inspection/Auscultation: abdomen normal to inspection Percussion/Palpation: abdomen soft Skin: + ecchymosis and + pallor Neurologic: + obtunded Psychiatric: Orientation: alert and oriented to person Insight: + poor insight Judgement: + poor judgement PG Care Time/CCT Total # of Minutes Spent Total Time Spent with Patient: Total time spent is greater than 50% in coordination of care (as documented) at patient's floor/unit and/or counseling patient: 35 minutes with > 50% of that time spent assessing the patient, discussing goals of care with nursing, addressing symptom management needs, and collaborating with IDT Coding Level of Care Code 25262 Subseq Hosp Care Lvl 3 Diagnoses Palliative care encounter Z51.5 Altered mental status R41.82 Weakness R53.1 COVID-19 U07.1 Agitation R45.1 Time Spent (min) 35
[2021-04-18] MEDS ORDERED: MoRPHine SULF/NSS 250 MG/250 ML BTL IV SCH (13:00)
--- NOTE | 2021-04-18 16:00 | Hospitalist Progress Note ---
Date of Service April 18, 2021 Assessment & Plan (1) Acute and chronic respiratory failure with hypoxia: Plan: 2/2 covid pneumonia, possibly superimposed bacterial pneumonia after sepsis picture on 04/12. Would continue abx for total 7 days. Cont decadron for now. Condition has been worsening with increasing requirements of oxygen and decreasing response Appreciate pulmonary input and recommendation Condition has been deteriorating and remains very critical Palliative care encounter Reevaluation by palliative care today and will have a Zoom meeting with the family members for further recommendation Appreciate palliative input and recommendation Following the meeting with the family members the patient has been put on comfort care only Has been on morphine drip for pain control and other supportive medications to keep him comfortable Condition is critical Below are the other medical conditions that the patient was being treated in the hospital (2) Sepsis: Plan: Appeared sepsis on morning on 04/12. Workup revealed progression of infiltrates and antibiotics and fluids were given for possible superimposed bacterial infection. He was resuscitated same day with IVF and Rocephin/doxy added. Decadron was readded to regimen that day also, having been held for delirium. Cont current therapy Clinically not any better. (3) Pneumonia due to COVID-19 virus: Plan: Continue on vapotherm with ongoing decadron, Rocephin and doxycycline. Tube feeds are also now at goal 45cc/hr.-pulled out NG tube feeding catheter on 04/16/2021 Speech path consulted to evaluate-appreciate input and recommendation of soft diet Cont vapotherm for support and OK to escalate to BIPAP if needed. Prognosis remains poor (4) Hypernatremia: Plan: Resolved. Cont free water flushes. Remains at high risk of dehydration with poor oral intake. (5) Delirium: Plan: Resolved this morning. Multifactorial in setting of dementia. Etiology is multifactorial including recent steroids, hyperglycemia, hypernatremia, ?ongoing pain, ?urinary retention issues, covid infection and hospitalization with hypoxia. Cont to treat possible underlying contributing factors listed. Reorient PRN, Zyprexa PRN. Continue one-to-one neurological monitor observation for now. (6) Pain: Plan: Some lower abdominal pain today-he has reported this earlier in the admission, also. At that time a CT abd/pel was performed and unrevealing for cause of pain. Pain resolved then returned. KUB did not reveal an ileus or obstruction. Cont Tylenol as tolerated with Tramadol PRN. Daughter and his nurse are aware. Denies any more pain during examination did not want to have any medications for that (7) Acute kidney injury superimposed on CKD: Plan: Creatinine improved. Continue to encourage adequate p.o. hydration. (8) Acute urinary retention: Plan: appeared to pass the TOV, however, has had low urine output and has received straight caths with no spontaneous urine output. Vences replaced for accurate I/Os. (9) Elevated troponin: Plan: Likely related to demand ischemia in setting of EF 45%, CAD and known apical thrombus in setting of acute illness lasting for one week prior to arrival. No evidence of ACS at this time. (10) COPD (chronic obstructive pulmonary disease): Plan: Chronic, stable, no wheezing. Complicating the Covid situation (11) Vascular dementia: Plan: High risk for delirium with ongoing hypoxia, illness, hospitalization and recent steroids. (12) Left ventricular apical thrombus: Plan: Coumadin given yesterday but will now be placed on hold with his INR decrease and tendency to become supratherapeutic. Will give therapeutic Lovenox at this point. High risk for PE in setting of covid infection. Overall prognosis is extremely poor (13) Coronary artery disease involving [place] heart without angina pectoris: Plan: chronic, appears stable. Cont medical management. (14) Malnutrition: Plan: Thin, elderly, not eating well. Tube feeds through NG tube are at goal. Attempt to transition to oral food today. (15) Supratherapeutic INR: Plan: INR > 10, reversed wtih vitamin K. Warfarin was restarted and then has been held since warfarin has been restarted. Cont to hold. (16) DVT prophylaxis: Plan: Lovenox DNR/DNI Dispo-appears improved but disposition is still uncertain. He is oriented and wants to continue with all current therapies which we will do. I updated his daughter by phone and all questions were answered. 03/15/2021-condition has been worse since last night and he pulled out his NG tube Has been more shortness of breath and requiring more oxygen to maintain saturation Elected to go for comfort care from this point Palliative care involved Admission and Anticipated Discharge Date Admission Date: April 04, 2021 Subjective 04/17/2021 The patient was seen and examined in telemetry unit and in the Covid room His condition has been deteriorating with increasing requirements of oxygen and generalized worsening of his condition He pulled out his NG tube for feeding and was advised to have soft diet as per the speech therapist Palliative care is going to reevaluate for possible comfort care down the line 04/18/2021 The patient was seen and examined in telemetry unit and in the Covid room He remains critical and is on comfort measures only Review of Systems Review of Systems: Unobtainable due to cognitive status Physical Exam Physical Exam: Remains unresponsive Constitutional: average body habitus Eyes: PERRL, conjunctivae normal, anicteric sclerae ENMT: external ear and nose normal, oropharynx normal Neck: trachea midline, no thyromegaly Respiratory: + respiratory distress, + labored breathing, + retractions and + cough Auscultation: + diminished lung sounds, + crackles and + wheezes Cardiovascular: Rate/Rhythm: regular rate, regular rhythm and + tachycardic Heart Sounds: normal S1 and normal S2; no murmur Extremities: no edema Gastrointestinal (Abdomen): Inspection/Auscultation: normal bowel sounds; abdomen not distended Lymphatic: no cervical or axillary lymphadenopathy Results & Data Results & Data ([facility]) Medications Administered Current Inpatient Medications Glycopyrrolate (Glycopyrrolate 0.2 Mg/Ml Vial) 0.2 mg IV Q3H PRN PRN Reason: secretions Stop: 05/17/21 16:50 Last Admin: 04/18/21 13:22 Dose: 0.2 mg Documented by: Lorazepam (Ativan) 1 mg in 2 mls @ 0.5 mls/min IV Q15M PRN PRN Reason: Anxiety/Agitation Stop: 05/18/21 03:05 Last Admin: 04/18/21 07:39 Dose: 0.5 mls/min Documented by: Morphine Sulfate (Morphine Sulf/Nss) 250 mg in 250 mls @ 2.5 mls/hr IV .Q96H [facility]; Protocol Stop: 05/02/21 12:59 Last Titration: 04/18/21 15:06 Dose: 2.5 mg/hr, 2.5 mls/hr Documented by:
--- NOTE | 2021-04-19 06:34 | Electrocardiogram Report ---
Test Reason : Blood Pressure : / mmHG Vent. Rate : 110 BPM Atrial Rate : 110 BPM P-R Int : 132 ms QRS Dur : 072 ms QT Int : 340 ms P-R-T Axes : 065 -08 072 degrees QTc Int : 460 ms Poor data quality, interpretation may be adversely affected Sinus tachycardia with Premature supraventricular complexes Cannot rule out Septal infarct When compared with ECG of 13-APR-2021 08:56, Premature ventricular complexes are no longer Present Premature supraventricular complexes are now Present Nonspecific T wave abnormality no longer evident in Inferior leads Confirmed by Javier Borges ([id number]) on 04/19/2021 6:33:39 AM Referred By: REFERRED SELF Confirmed By:Javier Borges
--- NOTE | 2021-04-19 14:34 | Palliative Care Progress Note ---
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 He was transitioned to a Morphine infusion overnight and is currently at 3.5mg/hour. Pt daughter Mary at bedside. Patient does have Robinul now for secretions ordered. Palliative will follow. Anticipate patient has hours to a day or so of life remaining. Dr. Elder aware. (2) Altered mental status: (3) Weakness: (4) COVID-19: (5) Agitation: Admission and Anticipated Discharge Date Admission Date: April 04, 2021 Subjective Pt remains on SYSTEMS TECHNICIAN. Pt is comfortable with no accessory muscle use or grimacing. He remains on IV Morphine gtt and his daughter Mary is at his bedside. See A/P for further details. Review of Systems Review of Systems: [place] [facility] Assessment Scale: by observation: Pain: 0/3 SOB: 1/3 Anxiety: 0/3 Palliative Performance Scale: 10% Physical Exam Constitutional: + ill appearing and + frail appearing ENMT: Mouth: + dry oral mucous membranes Respiratory: Auscultation: + diminished lung sounds and + rhonchi Cardiovascular: Rate/Rhythm: + tachycardic Extremities: normal capillary refill; no edema Skin: + ecchymosis and + pallor Neurologic: + obtunded PG Care Time/CCT Total # of Minutes Spent Total Time Spent with Patient: Total time spent is greater than 50% in coordination of care (as documented) at patient's floor/unit and/or counseling patient: 35 minutes Coding Level of Care Code 95457 Subseq Hosp Care Lvl 3 Diagnoses Palliative care encounter Z51.5 Altered mental status R41.82 Weakness R53.1 COVID-19 U07.1 Agitation R45.1 Time Spent (min) 35
--- NOTE | 2021-04-19 17:20 | Hospitalist Progress Note ---
Date of Service April 19, 2021 Assessment & Plan (1) Comfort measures only status: Plan: Palliative care encounter Reevaluation by palliative care today and will have a Zoom meeting with the family members for further recommendation Appreciate palliative input and recommendation Following the meeting with the family members the patient has been put on comfort care only Has been on morphine drip for pain control and other supportive medications to keep him comfortable Condition is critical and remains stable Below are the other medical conditions that the patient was being treated in the hospital: (2) Acute and chronic respiratory failure with hypoxia: Plan: 2/2 covid pneumonia, possibly superimposed bacterial pneumonia after sepsis picture on 04/12. Would continue abx for total 7 days. Cont decadron for now. Condition has been worsening with increasing requirements of oxygen and decreasing response Appreciate pulmonary input and recommendation Condition has been deteriorating and remains very critical (3) Sepsis: Plan: Appeared sepsis on morning on 04/12. Workup revealed progression of infiltrates and antibiotics and fluids were given for possible superimposed bacterial infection. He was resuscitated same day with IVF and Rocephin/doxy added. Decadron was readded to regimen that day also, having been held for delirium. Cont current therapy Clinically not any better. (4) Pneumonia due to COVID-19 virus: Plan: Continue on vapotherm with ongoing decadron, Rocephin and doxycycline. Tube feeds are also now at goal 45cc/hr.-pulled out NG tube feeding catheter on 04/16/2021 Speech path consulted to evaluate-appreciate input and recommendation of soft diet Cont vapotherm for support and OK to escalate to BIPAP if needed. Prognosis remains poor (5) Hypernatremia: Plan: Resolved. Cont free water flushes. Remains at high risk of dehydration with poor oral intake. (6) Delirium: Plan: Resolved this morning. Multifactorial in setting of dementia. Etiology is multifactorial including recent steroids, hyperglycemia, hypernatremia, ?ongoing pain, ?urinary retention issues, covid infection and hospitalization with hypoxia. Cont to treat possible underlying contributing factors listed. Reorient PRN, Zyprexa PRN. Continue one-to-one neurological monitor observation for now. (7) Pain: Plan: Some lower abdominal pain today-he has reported this earlier in the admission, also. At that time a CT abd/pel was performed and unrevealing for cause of pain. Pain resolved then returned. KUB did not reveal an ileus or obstruction. Cont Tylenol as tolerated with Tramadol PRN. Daughter and his nurse are aware. Denies any more pain during examination did not want to have any medications for that (8) Acute kidney injury superimposed on CKD: Plan: Creatinine improved. Continue to encourage adequate p.o. hydration. (9) Acute urinary retention: Plan: appeared to pass the TOV, however, has had low urine output and has received straight caths with no spontaneous urine output. Vences replaced for accurate I/Os. (10) Elevated troponin: Plan: Likely related to demand ischemia in setting of EF 45%, CAD and known apical thrombus in setting of acute illness lasting for one week prior to arrival. No evidence of ACS at this time. (11) COPD (chronic obstructive pulmonary disease): Plan: Chronic, stable, no wheezing. Complicating the Covid situation (12) Vascular dementia: Plan: High risk for delirium with ongoing hypoxia, illness, hospitalization and recent steroids. (13) Left ventricular apical thrombus: Plan: Coumadin given yesterday but will now be placed on hold with his INR decrease and tendency to become supratherapeutic. Will give therapeutic Lovenox at this point. High risk for PE in setting of covid infection. Overall prognosis is extremely poor (14) Coronary artery disease involving [place] heart without angina pectoris: Plan: chronic, appears stable. Cont medical management. (15) Malnutrition: Plan: Thin, elderly, not eating well. Tube feeds through NG tube are at goal. Attempt to transition to oral food today. (16) Supratherapeutic INR: Plan: INR > 10, reversed wtih vitamin K. Warfarin was restarted and then has been held since warfarin has been restarted. Cont to hold. (17) DVT prophylaxis: Plan: Lovenox DNR/DNI Dispo-appears improved but disposition is still uncertain. He is oriented and wants to continue with all current therapies which we will do. I updated his daughter by phone and all questions were answered. 03/15/2021-condition has been worse since last night and he pulled out his NG tube Has been more shortness of breath and requiring more oxygen to maintain saturation Elected to go for comfort care from this point Palliative care involved Admission and Anticipated Discharge Date Admission Date: April 04, 2021 Subjective 04/17/2021 The patient was seen and examined in telemetry unit and in the Covid room His condition has been deteriorating with increasing requirements of oxygen and generalized worsening of his condition He pulled out his NG tube for feeding and was advised to have soft diet as per the speech therapist Palliative care is going to reevaluate for possible comfort care down the line 04/18/2021 The patient was seen and examined in telemetry unit and in the Covid room He remains critical and is on comfort measures only 04/19/2021 The patient was seen and examined in medical floor Condition remains critical and is under comfort care only Physical Exam Physical Exam: Remains unresponsive Constitutional: average body habitus Eyes: PERRL, conjunctivae normal, anicteric sclerae ENMT: external ear and nose normal, oropharynx normal Neck: trachea midline, no thyromegaly Respiratory: + respiratory distress, + labored breathing, + retractions and + cough Auscultation: + diminished lung sounds, + crackles and + wheezes Cardiovascular: Rate/Rhythm: regular rate, regular rhythm and + tachycardic Heart Sounds: normal S1 and normal S2; no murmur Extremities: no edema Gastrointestinal (Abdomen): Inspection/Auscultation: normal bowel sounds; abdomen not distended Lymphatic: no cervical or axillary lymphadenopathy
--- NOTE | 2021-04-20 10:04 | Communication Note ---
Date of Service: April 20, 2021 Pronouncement Note: On Examination: Totally unresponsive NO Pulse,No respiration,No BP ,Pupils are dilated and fixed. He was pronounced on 04/20/2021 at 0955 hours Family members wee notified by the Nnurse. Dr Rafael Elder
--- NOTE | 2021-04-20 16:35 | Discharge Summary ---
Date of Service April 20, 2021 Admission HPI Per Admitting Provider This is an 81 y/o male with a PMH of COPD, chronic ischemic heart disease, apical mural thrombus, chronic anticoagulation, dementia, CKD 3a, macular degeneration, and chronic systolic CHF who presented to the ED today via EMS with lethargy and weakness. History obtained from patient, his [facility] chart, notes from his daughter, and from his granddaughter at the bedside. Apparently pt developed diarrhea and chills on Saturday (four days ago) followed by subjective fever, diminished appetite, cough, and mild dyspnea. Today, his daughter noted him to be more lethargic so she called 911. Pt lives with his daughter who started feeling ill on Saturday, was tested for COVID on Saturday, results coming back positive yesterday. Additionally, his family next door who they see regularly has COVID. Pt is not vaccinated for COVID. He does not require oxygen at baseline. He has underlying dementia - his granddaughter reports that his mental status is within baseline today. Pt has had ongoing diarrhea but denies nausea, vomiting, chest pain, or GONAZLEZ. He was dizzy over the past 1-2 days. Admission Exam Per Admitting Provider Constitutional: + thin; no acute distress Eyes: + anicteric sclerae Neck: trachea midline Respiratory: no respiratory distress and no labored breathing Auscultation: + diminished lung sounds (coarse throughout); no rhonchi and no wheezes Cardiovascular: Rate/Rhythm: regular rate and regular rhythm Vessels: dorsalis pedis pulses present and radial pulses present Extremities: no calf tenderness and no pedal edema Gastrointestinal (Abdomen): Inspection/Auscultation: + abdomen distended (mild, softly) and normal bowel sounds Percussion/Palpation: + abdomen tender (right abdomen) and abdomen soft Musculoskeletal: Head/Neck/Chest: normocephalic, head atraumatic and neck supple Skin: no rashes and no jaundice Neurologic: moves all extremities and + confused (slightly confused - oriented x 2 (person and place)); no focal motor deficits Principal Diagnosis The patient : The causes of where Pneumonia due to COVID-19 virus infection COVID-19 virus infection Acute respiratory failure COPD CAD Discharge Exam On Examination: Totally unresponsive NO Pulse,No respiration,No BP ,Pupils are dilated and fixed. He was pronounced on 04/20/2021 at 0955 hours Discharge Data Allergies Allergy/AdvReac Type Severity Reaction Status Date / Time aspirin AdvReac Unknown Verified 04/04/21 15:26 mirtazapine [From Remeron] AdvReac Unknown Verified 04/04/21 15:26 Consultations 04/04/21 16:45 ED Decision to Admit Stat 04/10/21 09:25 Consult Palliative Care Routine 04/13/21 08:35 Consult Pulmonology Routine Ordered Studies 04/04/21 23:09 CT head/brain wo con Urgent 04/07/21 14:35 CT abd pelvis IV con only Urgent Hospital Course (1) Comfort measures only status: Palliative care encounter Reevaluation by palliative care today and will have a Zoom meeting with the family members for further recommendation Appreciate palliative input and recommendation Following the meeting with the family members the patient has been put on comfort care only Has been on morphine drip for pain control and other supportive medications to keep him comfortable Condition is critical and remains stable Below are the other medical conditions that the patient was being treated in the hospital: (2) Acute and chronic respiratory failure with hypoxia: 2/2 covid pneumonia, possibly superimposed bacterial pneumonia after sepsis picture on 04/12. Would continue abx for total 7 days. Cont decadron for now. Condition has been worsening with increasing requirements of oxygen and decreasing response Appreciate pulmonary input and recommendation Condition has been deteriorating and remains very critical (3) Sepsis: Appeared sepsis on morning on 04/12. Workup revealed progression of infiltrates and antibiotics and fluids were given for possible superimposed bacterial infection. He was resuscitated same day with IVF and Rocephin/doxy added. Decadron was readded to regimen that day also, having been held for delirium. Cont current therapy Clinically not any better. (4) Pneumonia due to COVID-19 virus: Continue on vapotherm with ongoing decadron, Rocephin and doxycycline. Tube feeds are also now at goal 45cc/hr.-pulled out NG tube feeding catheter on 04/16/2021 Speech path consulted to evaluate-appreciate input and recommendation of soft diet Cont vapotherm for support and OK to escalate to BIPAP if needed. Prognosis remains poor (5) Hypernatremia: Resolved. Cont free water flushes. Remains at high risk of dehydration with poor oral intake. (6) Delirium: Resolved this morning. Multifactorial in setting of dementia. Etiology is multifactorial including recent steroids, hyperglycemia, hypernatremia, ?ongoing pain, ?urinary retention issues, covid infection and hospitalization with hypoxia. Cont to treat possible underlying contributing factors listed. Reorient PRN, Zyprexa PRN. Continue one-to-one neurological monitor observation for now. (7) Pain: Some lower abdominal pain today-he has reported this earlier in the admission, also. At that time a CT abd/pel was performed and unrevealing for cause of pain. Pain resolved then returned. KUB did not reveal an ileus or obstruction. Cont Tylenol as tolerated with Tramadol PRN. Daughter and his nurse are aware. Denies any more pain during examination did not want to have any medications for that (8) Acute kidney injury superimposed on CKD: Creatinine improved. Continue to encourage adequate p.o. hydration. (9) Acute urinary retention: appeared to pass the TOV, however, has had low urine output and has received straight caths with no spontaneous urine output. Vences replaced for accurate I/Os. (10) Elevated troponin: Likely related to demand ischemia in setting of EF 45%, CAD and known apical thrombus in setting of acute illness lasting for one week prior to arrival. No evidence of ACS at this time. (11) COPD (chronic obstructive pulmonary disease): Chronic, stable, no wheezing. Complicating the Covid situation (12) Vascular dementia: High risk for delirium with ongoing hypoxia, illness, hospitalization and recent steroids. (13) Left ventricular apical thrombus: Coumadin given yesterday but will now be placed on hold with his INR decrease and tendency to become supratherapeutic. Will give therapeutic Lovenox at this point. High risk for PE in setting of covid infection. Overall prognosis is extremely poor (14) Coronary artery disease involving [place] heart without angina pectoris: chronic, appears stable. Cont medical management. (15) Malnutrition: Thin, elderly, not eating well. Tube feeds through NG tube are at goal. Attempt to transition to oral food today. (16) Supratherapeutic INR: INR > 10, reversed wtih vitamin K. Warfarin was restarted and then has been held since warfarin has been restarted. Cont to hold. (17) DVT prophylaxis: Lovenox DNR/DNI Dispo-appears improved but disposition is still uncertain. He is oriented and wants to continue with all current therapies which we will do. I updated his daughter by phone and all questions were answered. 03/15/2021-condition has been worse since last night and he pulled out his NG tube Has been more shortness of breath and requiring more oxygen to maintain saturation Elected to go for comfort care from this point Palliative care involved Total Time Total Time Spent Total Time Spent (In Minutes): 35 minutes Discharge Plan Discharge Items Patient Disposition: Discharge Diagnosis: Pneumonia due to COVID-19 virus infection COVID-19 virus infection Acute respiratory failure COPD CAD Other Date/Time: 04/20/21 09:55
== END 2021-04-20 12:11 | disposition expired | DRG 177 ==
LOC: ED 14:34 → 2S 17:26 → SUATTDRO 17:26 → 2S 20:30 → 3E 04-18 17:17